=== PATIENT | male | born 1985 | race Caucasian/White ===

== ENCOUNTER 2016-08-08 13:37 | Emergency (ER) | payer SELFPAY ==
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
[2016-08-08] MEDS ORDERED: CEFTRIAXONE INJ 250 MG VIAL IM ONE (14:28)
[2016-08-08] MEDS ORDERED: LIDOCAINE 1% INJ-PF (10 MG/ML) 30 ML SDV INFIL ONE (14:28)
--- NOTE | 2016-08-08 14:34 | ER Document Report ---
ED Skin Rash/Insect Bite/Abscs - General Chief Complaint: Abscess Stated Complaint: FACIAL SORE Time seen by provider: 14:29 TRAVEL OUTSIDE OF THE [place] IN LAST 30 DAYS: No - HPI Patient complains to provider of: Tender/swollen area - pt has a red, swollen area on R cheek for the past 2-3 days. Has had some drainage from it yesterday. Denies fever. - Related Data Allergies/Adverse Reactions: No Known Allergies Allergy (Verified 08/08/16 13:48) Past Medical History - Social History Smoking Status: Current Every Day Smoker Cigarette use (# per day): Yes Chew tobacco use (# tins/day): No Smoking Education Provided: Yes Frequency of alcohol use: None Drug Abuse: None Family History: Reviewed & Not Pertinent Patient has suicidal ideation: No Patient has homicidal ideation: No Renal/ Medical History: Denies: Hx Peritoneal Dialysis Review of Systems - Review of Systems Constitutional: No symptoms reported EENT: No symptoms reported Cardiovascular: No symptoms reported Respiratory: No symptoms reported Skin: See HPI, Other - abscess -: Yes All other systems reviewed and negative Physical Exam - Vital signs Vitals: Temp Pulse Resp BP Pulse Ox 98.1 F 94 20 135/94 H 98 08/08/16 13:45 08/08/16 13:45 08/08/16 13:45 08/08/16 13:45 08/08/16 13:45 - General General appearance: Appears well In distress: None - HEENT Mouth/Lips: Normal Pharynx: Normal Neck: Normal - Respiratory Respiratory status: No respiratory distress Breath sounds: Normal - Cardiovascular Rhythm: Regular Heart sounds: Normal auscultation - Skin Skin irregularity: other - there is a 1 by 1 cm tender, swollen area on pt's R cheek with a central excoriated area and some minimal surrounding erythema. There is no fluctuence. Course - Re-evaluation Re-evalutation: 08/08/16 14:32 I have explained to pt. that since already had some drainage from this area, it is reasonable to try conservative measures today including Abx and warm compresses. He is agreeable to this. I have explained that if this is not successful, he would need to return for I and D of the area. - Vital Signs Vital signs: Temp Pulse Resp BP Pulse Ox 98.1 F 94 20 135/94 H 98 08/08/16 13:45 08/08/16 13:45 08/08/16 13:45 08/08/16 13:45 08/08/16 13:45 Discharge - Discharge Clinical Impression: Abscess Condition: Stable Disposition: HOME, SELF-CARE Instructions: Abscess ([facility]), Oral Narcotic Medication ([facility]), Trimethoprim- Sulfa ([facility]) Additional Instructions: rest, take meds as prescribed, return if worse Prescriptions: Oxycodone HCl/Acetaminophen [Percocet 5-325 mg Tablet] 1 tab PO ASDIR PRN #15 tab PRN Reason: Sulfamethoxazole/Trimethoprim [Bactrim Ds Tablet] 1 each PO BID #10 tablet
[2016-08-08] MEDS ORDERED: IBUPROFEN 800 MG TABLET PO ONE (15:00)
[2016-08-08 15:11] VITALS: BP 129/87
== END 2016-08-08 15:10 | disposition home or self-care (01) ==
LOC: ER 13:37
DX: L02.01 Cutaneous abscess of face (principal); F17.210 Nicotine dependence, cigarettes, uncomplicated
CPT/HCPCS: 99282; 96372; J3490; J0696

== ENCOUNTER 2016-09-04 08:05 | Emergency (ER) | payer SELFPAY ==
[2016-09-04] MEDS ORDERED: IBUPROFEN 800 MG TABLET PO ONE (09:12)
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
[2016-09-04 09:35] LABS: ABSOLUTE LYMPHOCYTES (AUTO) 0.9 10^3/uL (0.5-4.7); ABSOLUTE NEUT (AUTO) 5.5 10^3/uL (1.7-8.2); BASOPHILS % (AUTO) 0.1 % (0-2); EOSINOPHILS % (AUTO) 0.3 % (0-6); HEMATOCRIT 38.9 % (37.9-51.0); HEMOGLOBIN 13.4 g/dL (13.5-17.0); HGB HCT DIFFERENCE 1.3; LYMPHOCYTES % (AUTO) 12.4 % (13-45); MEAN CORPUSCULAR HEMOGLOBIN 28.8 pg (27.0-33.4); MEAN CORPUSCULAR HGB CONC 34.4 g/dL (32.0-36.0); MEAN CORPUSCULAR VOLUME 84 fl (80-97); MONOCYTES % (AUTO) 13.3 % (3-13); RED BLOOD COUNT 4.64 10^6/uL (4.35-5.55); RED CELL DISTRIBUTION WIDTH 13.4 % (11.5-14.0); SEGMENTED NEUTROPHILS % (AUTO) 73.9 % (42-78); WHITE BLOOD COUNT 7.4 10^3/uL (4.0-10.5)
[2016-09-04 09:54] LABS: ALANINE AMINOTRANSFERASE 77 U/L (21-72); ALBUMIN 4.8 g/dL (3.5-5.0); ALKALINE PHOSPHATASE 55 U/L (38-126); ANION GAP 12 (5-19); ASPARTATE AMINO TRANSFERASE 92 U/L (17-59); BILIRUBIN,TOTAL 0.7 mg/dL (0.2-1.3); BLOOD UREA NITROGEN 19 mg/dL (7-20); CALCIUM 9.8 mg/dL (8.4-10.2); CARBON DIOXIDE 26 mmol/L (22-30); CHLORIDE 103 mmol/L (98-107); CREATININE RESULT 1.55 mg/dL (0.52-1.25); GLUCOSE 101 mg/dL (75-110); POTASSIUM 3.8 mmol/L (3.6-5.0); SODIUM 140.6 mmol/L (137-145); TOTAL PROTEIN 7.3 g/dL (6.3-8.2)
[2016-09-04 11:12] LABS: APPEARANCE,URINE SLIGHTLY-CLOUDY; BILIRUBIN,URINE NEGATIVE (NEGATIVE); GLUCOSE, URINE NEGATIVE (NEGATIVE); KETONES,URINE NEGATIVE (NEGATIVE); LEUKOCYTE ESTERASE,URINE NEGATIVE (NEGATIVE); NITRITE,URINE NEGATIVE (NEGATIVE); PROTEIN,URINE 30 mg/dL (NEGATIVE); URINE SPECIFIC GRAVITY 1.004; UROBILINOGEN,URINE NEGATIVE mg/dL (<2.0)
[2016-09-04] MEDS ORDERED: OXYCODONE-ACETAMINOPHEN 5-325 MG TABLET PO ONE (11:59)
[2016-09-04 12:41] VITALS: BP 154/96
== END 2016-09-04 12:42 | disposition home or self-care (01) ==
LOC: ER 08:05
DX: S02.2XXA Fracture of nasal bones, initial encounter for closed fracture (principal); S60.229A Contusion of unspecified hand, initial encounter; R11.0 Nausea; R07.81 Pleurodynia; F17.210 Nicotine dependence, cigarettes, uncomplicated; M79.662 Pain in left lower leg; M79.661 Pain in right lower leg; M25.562 Pain in left knee; Y08.02XA Assault by strike by baseball bat, initial encounter; Y92.027 Garden or yard of mobile home as the place of occurrence of the external cause
CPT/HCPCS: 36415; 70450; 70486; 74177; 80053; 81001; 85025; 99284

== ENCOUNTER 2017-01-10 08:24 | Emergency (ER) | payer SELFPAY ==
[2017-01-10] MEDS ORDERED: NORMAL SALINE 1000 ML 1,000 ML IV ONE (09:54)
[2017-01-10] MEDS ORDERED: IBUPROFEN 800 MG TABLET PO ONE (09:54)
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
--- NOTE | 2017-01-10 10:17 | RADIOLOGY REPORT (SQ) ---
EXAM DESCRIPTION: CHEST PA/LAT COMPLETED DATE/TIME: 01/10/2017 10:06 am REASON FOR STUDY: RUQ pain, hx hep c, fever COMPARISON: None. EXAM PARAMETERS: NUMBER OF VIEWS: two views TECHNIQUE: Digital Frontal and Lateral radiographic views of the chest acquired. RADIATION DOSE: NA LIMITATIONS: none FINDINGS: LUNGS AND PLEURA: No opacities, masses or pneumothorax. No pleural effusion. MEDIASTINUM AND HILAR STRUCTURES: No masses or contour abnormalities. HEART AND VASCULAR STRUCTURES: Heart normal size. No evidence for failure. BONES: No acute findings. HARDWARE: None in the chest. OTHER: No other significant finding. IMPRESSION: NO SIGNIFICANT RADIOGRAPHIC FINDING IN THE CHEST. TECHNICAL DOCUMENTATION: JOB ID: [id number] [email or web address]- All Rights Reserved
[2017-01-10 10:55] LABS: HEMATOCRIT 40.5 % (37.9-51.0); HEMOGLOBIN 13.8 g/dL (13.5-17.0); HGB HCT DIFFERENCE 0.9; MEAN CORPUSCULAR HEMOGLOBIN 28.7 pg (27.0-33.4); MEAN CORPUSCULAR HGB CONC 34.1 g/dL (32.0-36.0); MEAN CORPUSCULAR VOLUME 84 fl (80-97); RED BLOOD COUNT 4.81 10^6/uL (4.35-5.55); RED CELL DISTRIBUTION WIDTH 12.9 % (11.5-14.0); WHITE BLOOD COUNT 3.4 10^3/uL (4.0-10.5)
[2017-01-10 11:02] LABS: APPEARANCE,URINE CLEAR; BILIRUBIN,URINE NEGATIVE (NEGATIVE); GLUCOSE, URINE NEGATIVE (NEGATIVE); KETONES,URINE NEGATIVE (NEGATIVE); LEUKOCYTE ESTERASE,URINE NEGATIVE (NEGATIVE); NITRITE,URINE NEGATIVE (NEGATIVE); PROTEIN,URINE NEGATIVE (NEGATIVE); URINE SPECIFIC GRAVITY 1.005; UROBILINOGEN,URINE NEGATIVE mg/dL (<2.0)
[2017-01-10 11:15] LABS: ALANINE AMINOTRANSFERASE 72 U/L (21-72); ALBUMIN 3.6 g/dL (3.5-5.0); ALKALINE PHOSPHATASE 55 U/L (38-126); ANION GAP 10 (5-19); ASPARTATE AMINO TRANSFERASE 75 U/L (17-59); BILIRUBIN,DIRECT 0.3 mg/dL (0.0-0.4); BILIRUBIN,TOTAL 0.5 mg/dL (0.2-1.3); BLOOD UREA NITROGEN 13 mg/dL (7-20); CALCIUM 8.4 mg/dL (8.4-10.2); CARBON DIOXIDE 23 mmol/L (22-30); CHLORIDE 103 mmol/L (98-107); CREATININE RESULT 1.08 mg/dL (0.52-1.25); GLUCOSE 95 mg/dL (75-110); LIPASE 157.8 U/L (23-300); POTASSIUM 3.9 mmol/L (3.6-5.0); TOTAL PROTEIN 6.5 g/dL (6.3-8.2)
[2017-01-10 11:24] LABS: URINE BARBITURATES SCREEN NEGATIVE; URINE METHADONE SCREEN NEGATIVE; URINE OPIATES LOW NEGATIVE; URINE PHENCYCLIDINE SCREEN NEGATIVE
[2017-01-10 11:32] LABS: BAND NEUTROPHILS % (MANUAL) 1 % (3-5); BASOPHILS % (MANUAL) 0 % (0-2); EOSINOPHILS % (MANUAL) 0 % (0-6); LYMPHOCYTES % (MANUAL) 25 % (13-45); TOTAL CELLS COUNTED 100
[2017-01-10 11:33] LABS: RBC MORPHOLOGY COMMENT NORMO-CYTIC/CHROMIC
--- NOTE | 2017-01-10 11:46 | RADIOLOGY REPORT (SQ) ---
EXAM DESCRIPTION: U/S ABDOMEN COMPLETE W/O DOP COMPLETED DATE/TIME: 01/10/2017 11:34 am REASON FOR STUDY: RUQ pain, hx hep c, fever COMPARISON: None. TECHNIQUE: Dynamic and static grayscale images acquired of the abdomen and recorded on PACS. Kenyao virgil selected color Doppler and spectral images recorded. LIMITATIONS: None. FINDINGS: PANCREAS: The visualized portions of pancreas are normal in appearance. LIVER: No masses. Echotexture normal. LIVER VASCULATURE: Normal directional flow of the main portal vein and hepatic veins. GALLBLADDER: Contracted. ULTRASOUND-DETECTED ABAD'S SIGN: Negative. INTRAHEPATIC DUCTS AND COMMON DUCT: CBD and intrahepatic ducts normal caliber. No filling defects. INFERIOR VENA CAVA: Incompletely imaged. AORTA: No aneurysm. RIGHT KIDNEY: Normal size. Normal echogenicity. No solid or suspicious masses. No hydronephros is. No calcifications. LEFT KIDNEY: Normal size. Normal echogenicity. No solid or suspicious masses. No hydronephrosi s. No calcifications. SPLEEN: Normal size. No solid masses. PERITONEAL AND PLEURAL SPACES: No ascites or effusions. OTHER: No other significant finding. IMPRESSION: Contracted gallbladder. No acute findings in the abdomen. TECHNICAL DOCUMENTATION: JOB ID: [id number] [employer]- All Rights Reserved
[2017-01-10] MEDS ORDERED: KETOROLAC TROMETHAMINE INJ/PF 30 MG/1 ML SDV IV ONE (14:04)
[2017-01-10] MEDS ORDERED: TRAMADOL HCL 50 MG TABLET PO ONE (14:05)
--- NOTE | 2017-01-10 15:48 | RADIOLOGY REPORT (SQ) ---
EXAM DESCRIPTION: MRI LUMBAR SPINE COMBO COMPLETED DATE/TIME: 01/10/2017 3:38 pm REASON FOR STUDY: fever, low back pain, ex iv drug user COMPARISON: None. TECHNIQUE: Sagittal and Axial imaging includes T1, T1 post gadolinium, T2, STIR and gradient echo se quences. Coronal T2/HASTE imaging. CONTRAST TYPE AND DOSE: 20 mL Multihance. RENAL FUNCTION: GFR > 60. LIMITATIONS: None. FINDINGS: VISUALIZED UPPER ABDOMEN: Limited evaluation. No acute or suspicious findings suggested. SEGMENTATION: No transitional anatomy. The lowest well-developed disc space is labeled L5-S1. ALIGNMENT: Anatomic. VERTEBRAE: Intact. No fractures. BONE MARROW: Normal. No marrow replacement or reactive changes. DISC SIGNAL: Normal. No significant abnormal signal or loss of height. POSTERIOR ELEMENTS: Generally intact. No pars defect evident. HARDWARE: None in the spine. CORD AND CONUS: Normal in size and signal intensity. Conus at the appropriate level. SOFT TISSUES: No aortic aneurysm seen. No bulky retroperitoneal adenopathy or mass. No paraspinal mas s or fluid. L1-L2: No significant spinal stenosis or exit foraminal stenosis. L2-L3: No significant spinal stenosis or exit foraminal stenosis. L3-L4: No significant spinal stenosis or exit foraminal stenosis. L4-L5: No significant spinal stenosis or exit foraminal stenosis. L5-S1: No significant spinal stenosis or exit foraminal stenosis. LOWER THORACIC: Incompletely imaged. No stenosis seen. SACRUM: Visualized upper sacrum intact. ENHANCEMENT: No abnormal enhancement. OTHER: No other significant findings. IMPRESSION: NORMAL MRI LUMBAR SPINE. NO EPIDURAL ABSCESS OR SOFT TISSUE ABSCESS. TECHNICAL DOCUMENTATION: JOB ID: [id number]- All Rights Reserved
[2017-01-10 17:04] VITALS: BP 121/69
== END 2017-01-10 17:29 | disposition home or self-care (01) ==
LOC: ER 08:24
DX: R50.9 Fever, unspecified (principal); R20.0 Anesthesia of skin; R03.0 Elevated blood-pressure reading, without diagnosis of hypertension; M54.5 Low back pain; F17.200 Nicotine dependence, unspecified, uncomplicated
CPT/HCPCS: 99284; 36415; 87040; 87086; 83690; 85025; 80053; 81001; 80307; 83605; 72158; 71020; 76700; A9577; J7030

== ENCOUNTER 2017-11-08 11:46 | Emergency (ER) | payer SELFPAY ==
[2017-11-08] MEDS ORDERED: NAPROXEN 250 MG TABLET PO ONE (12:28)
--- NOTE | 2017-11-08 12:29 | ER Document Report ---
ED Respiratory Problem - General Chief Complaint: Shortness Of Breath Stated Complaint: SHORTNESS OF BREATH Time Seen by Provider: 11/08/17 12:20 Notes: The patient is a 32-year-old male, past medical history current smoker, presents with a few hours of right lateral chest wall pain that is worse when he moves and when he takes deep breaths. Patient has not had this before. He has a history of right-sided broken ribs, but this feels different. Patient denies hemoptysis, syncope, leg swelling, recent travel, nausea, vomiting, fevers or cough. TRAVEL OUTSIDE OF THE [place] IN LAST 30 DAYS: No - Related Data Allergies/Adverse Reactions: No Known Allergies Allergy (Verified 01/10/17 08:28) Past Medical History - General Information source: Patient - Social History Smoking Status: Current Every Day Smoker Chew tobacco use (# tins/day): No Frequency of alcohol use: None Drug Abuse: Heroin Family History: Reviewed & Not Pertinent Patient has suicidal ideation: No Patient has homicidal ideation: No Pulmonary Medical History: Reports: Hx Asthma - exercise induced Renal/ Medical History: Denies: Hx Peritoneal Dialysis GI Medical History: Reports: Hx Hepatitis - C Infectious Medical History: Reports: Hx Hepatitis - C Review of Systems - Review of Systems Notes: REVIEW OF SYSTEMS: CONSTITUTIONAL: -fevers, -chills EENT: -eye pain, -difficulty swallowing, -nasal congestion CARDIOVASCULAR: +right-sided chest pain, -syncope. RESPIRATORY: -cough, +SOB GASTROINTESTINAL: -abdominal pain, -nausea, -vomiting, -diarrhea GENITOURINARY: -dysuria, -hematuria MUSCULOSKELETAL: -back pain, -neck pain SKIN: -rash or skin lesions. HEMATOLOGIC: -easy bruising or bleeding. LYMPHATIC: -swollen, enlarged glands. NEUROLOGICAL: -altered mental status or loss of consciousness, -headache, - neurologic symptoms PSYCHIATRIC: -anxiety, -depression. ALL OTHER SYSTEMS REVIEWED AND NEGATIVE. Physical Exam - Vital signs Vitals: Temp Pulse Resp BP Pulse Ox 98.0 F 77 16 141/84 H 98 11/08/17 11:57 11/08/17 11:57 11/08/17 11:57 11/08/17 11:57 11/08/17 11:57 - Notes Notes: PHYSICAL EXAMINATION: GENERAL: Well-appearing, well-nourished and in no acute distress. HEAD: Atraumatic, normocephalic. EYES: Pupils equal round and reactive to light, extraocular movements intact, sclera anicteric, conjunctiva are normal. ENT: nares patent, oropharynx clear without exudates. Moist mucous membranes. NECK: Normal range of motion, supple without lymphadenopathy LUNGS: Breath sounds clear to auscultation bilaterally and equal. No wheezes rales or rhonchi. HEART: Regular rate and rhythm without murmurs ABDOMEN: Soft, nontender, normoactive bowel sounds. No guarding, no rebound. No masses appreciated. CHEST WALL: Tenderness over right lateral chest wall. EXTREMITIES: Normal range of motion, no pitting or edema. No cyanosis. NEUROLOGICAL: Cranial nerves grossly intact. Normal speech, normal gait. Normal sensory and motor exams. PSYCH: Normal mood, normal affect. SKIN: Warm, Dry, normal turgor, no rashes or lesions noted. Course - Re-evaluation Re-evalutation: Pt appears well. His EKG does not show any ischemic changes and CXR does not show any acute findings. Patient is PERC negative. Symptoms seem consistent with pleurisy. Spoke to patient about smoking cessation and adding anti- inflammatories to help with his pain. Given very strict return precautions and he understands. - Vital Signs Vital signs: Temp Pulse Resp BP Pulse Ox 98.0 F 77 16 141/84 H 98 11/08/17 11:57 11/08/17 11:57 11/08/17 11:57 11/08/17 11:57 11/08/17 11:57 - Diagnostic Test Radiology reviewed: Image reviewed, Reports reviewed Radiology results interpreted by me: CXR: NAD - EKG Interpretation by Me EKG shows normal: Sinus rhythm, [place], Intervals, QRS Complexes, ST-T Waves Rate: Normal Discharge - Discharge Clinical Impression: Pleurisy, Chest pain, Shortness of breath Condition: Stable Disposition: HOME, SELF-CARE Additional Instructions: SHORTNESS OF BREATH OR DYSPNEA: You were evaluated for shortness of breath, or dyspnea. Dyspnea has many causes, and some are more serious than others. Sometimes it's impossible to diagnose the cause of dyspnea with the tests that are available on an emergency basis. Based on our evaluation today, you do not need hospitalization now. We found no evidence of pneumonia, collapsed lung, blood clots in the lung, tumors , or heart failure. Causes of non-specific dyspnea can include asthma or bronchospasm, hyperventilation, emotional distress, heart disease, emphysema, fibrosis of the lung, and stiffness of the chest wall. In healthy individuals with a single episode, it's sometimes reasonable to do nothing but wait to see if the problem occurs again. Additional tests used to evaluate dyspnea can include cardiac stress testing, echocardiography, pulmonary function testing, CAT scan of the chest, bronchoscopy or pulmonary biopsy. Return if shortness of breath persists or worsens, or if you develop chest pain, fever, cough, confusion, or fainting. NORMAL EXAM AND WORKUP: At this time, your examination and workup show no significant abnormality. No significant abnormal physical findings were noted. All laboratory, EKG, and imaging (x-ray, CT scans, ultrasound) studies that were ordered show no significant abnormality. Although your examination and all studies that were ordered showed no significant abnormal finding, there are no examinations and no studies that are 100% accurate. There is always the possibility that some abnormality could exist and not be detected with physical examination or within the limits and capabilities of laboratory and other studies. You should return or follow up as you were instructed on your visit today for further evaluation if your symptoms do not resolve. FOLLOW-UP CARE: If you have been referred to a physician for follow-up care, call the physician s office for an appointment as you were instructed or within the next two days. If you experience worsening or a significant change in your symptoms, notify the physician immediately or return to the Emergency Department at any time for re-evaluation. CHEST PAIN OF UNCLEAR CAUSE: The exact cause of your chest pain isn't clear. Fortunately, there is no evidence of a dangerous medical condition. Further testing may be required to find the source of the pain. Most often, we find that this pain is coming from the chest wall -- the muscles or rib joints in the chest. But chest pain can come from the lung and lung lining, the esophagus, the heart valves or heart lining, and even the stomach or gallbladder. Rest. Eat lightly until the pain is gone. We may prescribe medicine for pain and inflammation. You should call the physician immediately if the pain radiates to the shoulder, jaw or arms; if you start to run a fever or develop a cough; or if you develop shortness of breath, or other new or alarming symptoms. NORMAL EXAM AND WORKUP: At this time, your examination and workup show no significant abnormality. No significant abnormal physical findings were noted. All laboratory, EKG, and imaging (x-ray, CT scans, ultrasound) studies that were ordered show no significant abnormality. Although your examination and all studies that were ordered showed no significant abnormal finding, there are no examinations and no studies that are 100% accurate. There is always the possibility that some abnormality could exist and not be detected with physical examination or within the limits and capabilities of laboratory and other studies. You should return or follow up as you were instructed on your visit today for further evaluation if your symptoms do not resolve. CHEST WALL PAIN: Your chest pain may be coming from the chest wall. This is often caused by straining the muscles or joints in the chest during physical activity, direct trauma, coughing, or vigorous vomiting. Persons with arthritis are especially prone to this type of pain, due to inflammation of the cartilage joints near the breast bone. Occasionally, no cause can be found. Rest from strenuous physical activity. This kind of chest pain is usually made worse by movement of the chest. Depending on the symptoms, we may prescribe medicine for pain, muscle relaxation, and antiinflammatory effects. If the pain is new, and seems to be due to muscle strain, cold packs can help. Otherwise, apply gentle warmth to the painful area for 15 minutes every hour or two. You should call contact the doctor immediately if things change. Further evaluation is needed if you develop a fever or cough, if the nature of the pain changes, or if you become short of breath. FOLLOW-UP CARE: If you have been referred to a physician for follow-up care, call the physician s office for an appointment as you were instructed or within the next two days. If you experience worsening or a significant change in your symptoms, notify the physician immediately or return to the Emergency Department at any time for re-evaluation. Forms: Smoking Cessation Education, Elevated Blood Pressure Referrals: GANGA JENKINS MD [ACTIVE STAFF] - Follow up as needed
--- NOTE | 2017-11-08 12:47 | RADIOLOGY REPORT (SQ) ---
EXAM DESCRIPTION: CHEST 2 VIEWS COMPLETED DATE/TIME: 11/08/2017 12:40 pm REASON FOR STUDY: right-sided chest pain COMPARISON: 01/10/2017. EXAM PARAMETERS: NUMBER OF VIEWS: two views TECHNIQUE: Digital Frontal and Lateral radiographic views of the chest acquired. RADIATION DOSE: NA LIMITATIONS: none FINDINGS: LUNGS AND PLEURA: No opacities, masses or pneumothorax. No pleural effusion. MEDIASTINUM AND HILAR STRUCTURES: No masses or contour abnormalities. HEART AND VASCULAR STRUCTURES: Heart normal size. No evidence for failure. BONES: No acute findings. HARDWARE: None in the chest. OTHER: No other significant finding. IMPRESSION: NO ACUTE RADIOGRAPHIC FINDING IN THE CHEST. TECHNICAL DOCUMENTATION: JOB ID: [id number] [employer]- All Rights Reserved Reading location - IP/workstation name: [email or web address]
[2017-11-08 13:41] VITALS: BP 126/80
--- NOTE | 2017-11-08 21:40 | EKG REPORT ---
SEVERITY:- NORMAL ECG - SINUS RHYTHM : Confirmed by: Nieves Thompson 08-Nov-2017 21:39:40
== END 2017-11-08 13:39 | disposition home or self-care (01) ==
LOC: ER 11:46
DX: R09.1 Pleurisy (principal); R07.89 Other chest pain; R06.02 Shortness of breath; F17.200 Nicotine dependence, unspecified, uncomplicated; J45.909 Unspecified asthma, uncomplicated
CPT/HCPCS: 71046; 93005; 93010; 99284

== ENCOUNTER 2017-11-10 16:58 | Emergency (ER) | payer SELFPAY ==
[2017-11-10] MEDS ORDERED: ALBUTEROL SULFATE 0.083% NEB 2.5 MG/3 ML AMPUL NEB ONE (19:36)
[2017-11-10] MEDS ORDERED: IPRATROPIUM BROMIDE 0.02% NEB 0.5 MG/2.5 ML AMPUL NEB ONE (19:36)
--- NOTE | 2017-11-10 20:14 | RADIOLOGY REPORT (SQ) ---
EXAM DESCRIPTION: CHEST 2 VIEWS COMPLETED DATE/TIME: 11/10/2017 8:05 pm REASON FOR STUDY: chest pain COMPARISON: 11/08/2017. EXAM PARAMETERS: NUMBER OF VIEWS: two views TECHNIQUE: Digital Frontal and Lateral radiographic views of the chest acquired. RADIATION DOSE: NA LIMITATIONS: none FINDINGS: LUNGS AND PLEURA: Low lung volumes. No opacities, masses or pneumothorax. No pleural effu katja. MEDIASTINUM AND HILAR STRUCTURES: No masses or contour abnormalities. HEART AND VASCULAR STRUCTURES: Heart normal size. No evidence for failure. BONES: No acute findings. HARDWARE: None in the chest. OTHER: No other significant finding. IMPRESSION: NO ACUTE RADIOGRAPHIC FINDING IN THE CHEST. TECHNICAL DOCUMENTATION: JOB ID: [id number] [employer]- All Rights Reserved Reading location - IP/workstation name: [email or web address]
[2017-11-10] MEDS ORDERED: ALBUTEROL SULFATE HFA (90 MCG/PUFF) 8 GM MDI (1 MDI/ER DISP) IH PRN (20:36)
[2017-11-10] MEDS ORDERED: PREDNISONE 20 MG TABLET PO ONE (20:40)
--- NOTE | 2017-11-10 20:41 | ER Document Report ---
ED General - General Chief Complaint: Shortness Of Breath Stated Complaint: SHORTNESS OF BREATH Time Seen by Provider: 11/10/17 19:25 TRAVEL OUTSIDE OF THE [place] IN LAST 30 DAYS: No - Related Data Allergies/Adverse Reactions: No Known Allergies Allergy (Verified 01/10/17 08:28) Past Medical History - Social History Smoking Status: Current Every Day Smoker Chew tobacco use (# tins/day): No Frequency of alcohol use: None Family History: Reviewed & Not Pertinent Patient has suicidal ideation: No Patient has homicidal ideation: No Pulmonary Medical History: Reports: Hx Asthma - exercise induced Renal/ Medical History: Denies: Hx Peritoneal Dialysis GI Medical History: Reports: Hx Hepatitis - C Infectious Medical History: Reports: Hx Hepatitis - C Physical Exam - Vital signs Vitals: Temp Pulse Resp BP Pulse Ox 98.3 F 92 20 144/75 H 97 11/10/17 17:08 11/10/17 17:08 11/10/17 17:08 11/10/17 17:08 11/10/17 17:08 Course - Re-evaluation Re-evalutation: 11/10/17 20:36 Patient's x-ray shows mild peribronchial cuffing but otherwise no concerning findings of infiltrates or consolidations. Patient's troponin negative. Pending EKG. Patient declined nebulizer treatment at this time. He appears in no acute distress with normal vitals. Will be discharged with 5 day prednisone Dosepak and was instructed to use albuterol puffer 2 puffs every 4 hours while awake for the next 2 days and 2 puffs every 4 hours thereafter. Smoking cessation also discussed 11/10/17 20:39 HEART Score 1, No concerning findings on EKG, will d/c at this time. - Vital Signs Vital signs: Temp Pulse Resp BP Pulse Ox 98.3 F 92 20 144/75 H 97 11/10/17 17:08 11/10/17 17:08 11/10/17 17:08 11/10/17 17:08 11/10/17 17:08 - Diagnostic Test Radiology reviewed: Reports reviewed - Mild peribrochial cuffing Discharge - Discharge Clinical Impression: Pleurisy Condition: Good Disposition: HOME, SELF-CARE Instructions: Pleurisy ([facility]) Additional Instructions: Please use albuterol puffer 2 puffs every 4 hours for the next 2 days while awake and then 2 puffs every 4 hours as needed thereafter Prescriptions: Prednisone [Deltasone 20 mg Tablet] 2 tab PO DAILY 5 Days #10 tablet
--- NOTE | 2017-11-10 20:49 | ER Document Report ---
ED General - General Mode of Arrival: Ambulatory Information source: Patient TRAVEL OUTSIDE OF THE [place] IN LAST 30 DAYS: No - General Chief Complaint: Shortness Of Breath Stated Complaint: SHORTNESS OF BREATH Time Seen by Provider: 11/10/17 19:25 Notes: Patient is a 32-year-old male who presents to the emergency department today with complaints of chest wall pain. Patient was diagnosed with pleurisy 2 days ago and was told to take anti-inflammatories (ibuprofen). Patient states he has an albuterol inhaler at home but it is . He has not been using it because he "does not feel like it helps". Patient is here for pain relief. ( EMMANUEL MIGUEL) - Related Data Allergies/Adverse Reactions: No Known Allergies Allergy (Verified 01/10/17 08:28) Past Medical History - General Information source: Patient - Social History Smoking Status: Current Every Day Smoker Cigarette use (# per day): Yes Chew tobacco use (# tins/day): No Frequency of alcohol use: None Lives with: Family Family History: Reviewed & Not Pertinent Patient has suicidal ideation: No Patient has homicidal ideation: No Pulmonary Medical History: Reports: Hx Asthma - exercise induced Renal/ Medical History: Denies: Hx Peritoneal Dialysis GI Medical History: Reports: Hx Hepatitis - C Infectious Medical History: Reports: Hx Hepatitis - C Surgical Hx: Negative Review of Systems - Review of Systems Constitutional: No symptoms reported EENT: No symptoms reported Cardiovascular: No symptoms reported Respiratory: Hurts to breathe Gastrointestinal: No symptoms reported Genitourinary: No symptoms reported Male Genitourinary: No symptoms reported Musculoskeletal: No symptoms reported Skin: No symptoms reported Hematologic/Lymphatic: No symptoms reported Neurological/Psychological: No symptoms reported -: Yes All other systems reviewed and negative Physical Exam - Vital signs Vitals: Temp Pulse Resp BP Pulse Ox 98.3 F 92 20 144/75 H 97 11/10/17 17:08 11/10/17 17:08 11/10/17 17:08 11/10/17 17:08 11/10/17 17:08 - Notes Notes: Physical Exam: General: Alert, appears well. HEENT: Normocephalic. Atraumatic. PERRL. Extraocular movements intact. Oropharynx clear. Neck: Supple. Non-tender. Respiratory: No respiratory distress. Clear and equal breath sounds bilaterally. Cardiovascular: Regular rate and rhythm. Abdominal: Normal Inspection. Non-tender. No distension. Normal Bowel Sounds. Back: Non-tender. No deformity or step off. Extremities: Moves all four extremities. Upper extremities: Normal inspection. Normal ROM. Lower extremities: Normal inspection. No edema. Normal ROM. Neurological: Normal cognition. AAOx4. Normal speech. Psychological: Normal affect. Normal Mood. Skin: Warm. Dry. Normal color. (EMMANUEL MIGUEL) Course - EKG Interpretation by Me EKG shows normal: Sinus rhythm Rate: Normal - 93 Rhythm: NSR When compared to previous EKG there are: No significant change - Vital Signs Vital signs: Temp Pulse Resp BP Pulse Ox 100.9 F H 99 20 154/100 H 98 11/10/17 20:58 11/10/17 20:58 11/10/17 20:58 11/10/17 20:58 11/10/17 20:58 Discharge - Discharge Clinical Impression: Pleurisy Condition: Good Disposition: HOME, SELF-CARE Instructions: Pleurisy ([facility]) Additional Instructions: Please use albuterol puffer 2 puffs every 4 hours for the next 2 days while awake and then 2 puffs every 4 hours as needed thereafter Prescriptions: Prednisone [Deltasone 20 mg Tablet] 2 tab PO DAILY 5 Days #10 tablet Forms: Return to Work Scribe Attestation: 11/13/17 10:58 I personally performed the services described in the documentation, reviewed and edited the documentation which was dictated to the scribe in my presence, and it accurately records my words and actions. (MOO VELASCO) Scribe Documentation - Scribe Written by Nara:: Nara Townsend, 11/11/2017 0917 acting as scribe for :: Curtis
[2017-11-10 21:00] VITALS: BP 154/100
--- NOTE | 2017-11-10 23:17 | EKG REPORT ---
SEVERITY:- NORMAL ECG - SINUS RHYTHM : Confirmed by: Nieves Thompson 10-Nov-2017 23:17:02
== END 2017-11-10 21:02 | disposition home or self-care (01) ==
LOC: ER 16:58
DX: R09.1 Pleurisy (principal); R06.02 Shortness of breath; R07.89 Other chest pain; F17.210 Nicotine dependence, cigarettes, uncomplicated; Z86.19 Personal history of other infectious and parasitic diseases
CPT/HCPCS: 93005; 99284; 36415; 84484; 71046; 93010; J7512; J3490

== ENCOUNTER 2018-01-22 18:51 | Emergency (ER) | payer SELFPAY ==
[2018-01-22 19:04] VITALS: BP 137/90
[2018-01-22] MEDS ORDERED: DIAZEPAM INJ 10 MG/2 ML DISP.SYRIN IM ONE (19:18)
--- NOTE | 2018-01-22 19:24 | ER Document Report ---
ED General - General Chief Complaint: Leg Pain Stated Complaint: RIGHT LEG PAIN Time Seen by Provider: 01/22/18 19:06 Notes: Patient is a 32 year old male that comes to the ED by EMS for chief complaint of lower back pain radiating down the back of his right leg. He states he is Star been evaluated for this twice, had x-rays including back and hip, states that last Tuesday night he started limping and it is only gotten worse with regular shooting pains down the back of his leg and a tingling sensation intermittently. He denies numbness, inability to urinate, bowel incontinence, fever, or history of IV drug abuse. He denies history of the same. He denies any orthopedic surgeries. He cannot recall any specific accident. 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 TRAVEL OUTSIDE OF THE [place] IN LAST 30 DAYS: No - Related Data Allergies/Adverse Reactions: No Known Allergies Allergy (Verified 01/10/17 08:28) Past Medical History - General Information source: Patient - Social History Smoking Status: Never Smoker Drug Abuse: None Lives with: Family Family History: Reviewed & Not Pertinent Patient has suicidal ideation: No Patient has homicidal ideation: No Pulmonary Medical History: Reports: Hx Asthma - exercise induced Renal/ Medical History: Denies: Hx Peritoneal Dialysis GI Medical History: Reports: Hx Hepatitis - C Infectious Medical History: Reports: Hx Hepatitis - C Review of Systems - Review of Systems Constitutional: No symptoms reported EENT: No symptoms reported Cardiovascular: No symptoms reported Respiratory: No symptoms reported Gastrointestinal: No symptoms reported Genitourinary: No symptoms reported Male Genitourinary: No symptoms reported Musculoskeletal: See HPI Skin: No symptoms reported Hematologic/Lymphatic: No symptoms reported Neurological/Psychological: No symptoms reported Physical Exam - Vital signs Vitals: Pulse Resp BP Pulse Ox 99 16 137/90 H 97 01/22/18 19:03 01/22/18 19:03 01/22/18 19:03 01/22/18 19:03 - Notes Notes: GENERAL: Patient vocalizing and shifting in the bed, but does not appear to be in distress. HEAD: Normocephalic, atraumatic. EYES: Pupils equal, round, and reactive to light. Extraocular movements intact. ENT: Oral mucosa moist, tongue midline. NECK: Full range of motion. Supple. Trachea midline. LUNGS: Clear to auscultation bilaterally, no wheezes, rales, or rhonchi. No respiratory distress. HEART: Regular rate and rhythm. No murmur ABDOMEN: Soft, non-tender. Non-distended. Bowel sounds present in all 4 quadrants. EXTREMITIES: Moves all 4 extremities spontaneously. No edema, normal radial and dorsalis pedis pulses bilaterally. No cyanosis. BACK: no midline tenderness, tender over the right mid to lower lumbar area extending down towards the gluteal area. No saddle anesthesia. Positive straight leg raise on the right. Normal distal neurovascular exam. Only other abnormality is what appears to be a lipoma on the left upper back. NEUROLOGICAL: Alert and oriented x3. Normal speech. [cranial nerves II through XII grossly intact]. PSYCH: Normal affect, normal mood. SKIN: Warm, dry, normal turgor. No rashes or lesions noted. Course - Re-evaluation Re-evalutation: Patient with tenderness along the right paraspinal muscles at the lumbar area and buttocks, positive straight leg raise, no tenderness at the hip or femur areas, no numbness, normal distal neurovascular exam. No fever, no history of IV drug abuse reported, no surgeries, physical exam and history do not suggest septic joint or spinal cord compression. Suspect patient has sciatica. Discussed this with patient, decision was made to give him a dose of diazepam here, provided him with this at home as a muscle relaxer, he will take ibuprofen , discussed expectations, follow-up, and return precautions. Family came, reported that he cannot walk, requested additional treatment, I went evaluate the patient again, discussed with patient and family, patient states that he just needs help getting into the car, he has a walker at home. - Vital Signs Vital signs: Temp Pulse Resp BP Pulse Ox 99 16 137/90 H 97 01/22/18 19:03 01/22/18 19:03 01/22/18 19:03 01/22/18 19:03 Discharge - Discharge Clinical Impression: Lower back pain Qualifiers: Chronicity: acute Back pain laterality: right Sciatica presence: with sciatica Sciatica laterality: sciatica of right side Qualified Code(s): M54.41 - Lumbago with sciatica, right side Condition: Stable Disposition: HOME, SELF-CARE Additional Instructions: Your evaluation is very suggestive of sciatic nerve pain (sciatica). This does not appear to be a hip joint problem. Take the medication prescribed, apply heat to the area, drink plenty fluids, and rest. See additional details below. Also take over the counter anti- inflammatory (i.e. ibuprofen 600 mg every 6 hours, with food). Follow-up with primary care and orthopedic referrals. Return if you worsen including fever, developing or spreading redness, numbness , loss of bowel or bladder control, or any other concerning or worsening symptoms. Sciatica Your symptoms suggest "sciatica." The pain of sciatica typically radiates down the leg. Numbness in the foot or calf may also occur. Sciatica is caused by irritation of the sciatic nerve or its branches. The irritation can be due to a herniated disk in the spine, swelling and inflammation in the muscles surrounding the sciatic nerve, or direct injury of the nerve itself. Most cases of sciatica will resolve with medical treatment. Bed rest is usually recommended initially. Surgery is only necessary when the condition will not improve with rest and antiinflammatory medication. Muscle relaxers are often given if muscle soreness is present. A CAT scan of the back may be performed if a herniated disk is suspected. Re-examination is necessary if you develop increasing numbness, localized weakness in the foot or ankle, or if the pain does not respond to rest. Prescriptions: Diazepam [Valium 5 mg Tablet] 1 - 2 tab PO TID PRN #15 tablet PRN Reason: Forms: Return to Work Referrals: VELMA HAIR MD [COMMUNITY BASED STAFF] - Follow up as needed NATHALY MORALES MD [ACTIVE STAFF] - Follow up as needed
[2018-01-22] MEDS ORDERED: HYDROCODONE/ACETAMINOPHEN 5-325 MG (6 TAB/ER DISP) PO PRN (19:56)
== END 2018-01-22 20:31 | disposition home or self-care (01) ==
LOC: ER 18:51
DX: M54.41 Lumbago with sciatica, right side (principal); M79.604 Pain in right leg; J45.909 Unspecified asthma, uncomplicated
CPT/HCPCS: 99283; 96374; J3360

== ENCOUNTER 2018-01-24 10:23 | Inpatient (IN) | payer OTHER ==
[2018-01-24] MEDS ORDERED: HYDROMORPHONE HCL INJ/PF 2 MG/ML AMPULE IV ONE ×5 (10:48→16:28)
--- NOTE | 2018-01-24 10:52 | ER Document Report ---
ED Medical Screen (RME) - General Chief Complaint: Back Pain Stated Complaint: BACK PAIN Time Seen by Provider: 01/24/18 10:40 Mode of Arrival: Wheelchair Information source: Patient Notes: 32-year-old male presents with complaints of low back pain. Patient notes he has been seen now 4 times this week for his back pain notes fever that started yesterday. Denies any nausea or vomiting Patient was recently seen and placed on prednisone notes fever 102.5 I have greeted and performed a rapid initial assessment of this patient. A comprehensive ED assessment and evaluation of the patient, analysis of test results and completion of the medical decision making process will be conducted by additional ED providers. PHYSICAL EXAMINATION: GENERAL: Well-appearing, well-nourished and in no acute distress. HEAD: Atraumatic, normocephalic. EYES: Pupils equal round extraocular movements intact, conjunctiva are normal. ENT: Nares patent NECK: Normal range of motion LUNGS: No respiratory distress Musculoskeletal: pain with rom NEUROLOGICAL: Normal speec PSYCH: Normal mood, normal affect. SKIN: Blistering noted of the low back secondary to heating pad TRAVEL OUTSIDE OF THE [place] IN LAST 30 DAYS: No - Related Data Allergies/Adverse Reactions: No Known Allergies Allergy (Verified 01/24/18 10:24) Past Medical History Pulmonary Medical History: Reports: Hx Asthma - exercise induced Renal/ Medical History: Denies: Hx Peritoneal Dialysis GI Medical History: Reports: Hx Hepatitis - C Infectious Medical History: Reports: Hx Hepatitis - C Physical Exam - Vital signs Vitals: Temp Pulse Resp BP Pulse Ox 98.8 F 98 18 124/79 98 01/24/18 10:01/24/18 10:01/24/18 10:01/24/18 10:01/24/18 10:29 Course - Vital Signs Vital signs: Temp Pulse Resp BP Pulse Ox 98.8 F 98 18 124/79 98 01/24/18 10:01/24/18 10:01/24/18 10:01/24/18 10:01/24/18 10:29
--- NOTE | 2018-01-24 11:17 | ER Document Report ---
ED General - General Chief Complaint: Back Pain Stated Complaint: BACK PAIN Time Seen by Provider: 01/24/18 10:40 Mode of Arrival: Wheelchair TRAVEL OUTSIDE OF THE [place] IN LAST 30 DAYS: No - HPI Notes: 32-year-old male presents to the ED with complaints of being unable to walk, acute lower back pain with weakness as well as having a fever that started yesterday, back pain is been occurring for the last week. Patient has been seen at [facility] twice and this emergency room on 01/22/18 for acute lower back pain, told he had sciatica and given Valium prescription. Patient reports he has new onset weakness, severe pain to his right lower back and unable to ambulate since yesterday. Pain is 10 out of 10, sharp stabbing and constant. Patient's last bowel movement was 2 days ago, did void this morning. Denies chest pain,palpitations, shortness of breath, dyspnea, nausea, vomiting, diarrhea, abdominal pain, hematuria,blurred vision, double vision, loss of vision, speech changes, LH, dizziness, syncope, headaches, wheezing, ST , URI, neck pain, weakness, bowel or bladder dysfunction, saddle anesthesia, numbness or tingling in bilateral upper extremities equally, muscle paralysis, weakness in bilateral upper equally or rash. Denies IV drug use. - Related Data Allergies/Adverse Reactions: No Known Allergies Allergy (Verified 01/24/18 10:24) Past Medical History - General Information source: Patient, Parent - Social History Smoking Status: Current Every Day Smoker Chew tobacco use (# tins/day): No Frequency of alcohol use: None Drug Abuse: None Family History: Reviewed & Not Pertinent Patient has suicidal ideation: No Patient has homicidal ideation: No Pulmonary Medical History: Reports: Hx Asthma - exercise induced Renal/ Medical History: Denies: Hx Peritoneal Dialysis GI Medical History: Reports: Hx Hepatitis - C Infectious Medical History: Reports: Hx Hepatitis - C Review of Systems - Review of Systems Constitutional: See HPI EENT: No symptoms reported Cardiovascular: No symptoms reported Respiratory: No symptoms reported Gastrointestinal: No symptoms reported Genitourinary: No symptoms reported Male Genitourinary: No symptoms reported Musculoskeletal: See HPI Skin: No symptoms reported Hematologic/Lymphatic: No symptoms reported Neurological/Psychological: See HPI Physical Exam - Vital signs Vitals: Temp Pulse Resp BP Pulse Ox 98.8 F 98 18 124/79 98 01/24/18 10:29 01/24/18 10:29 01/24/18 10:29 01/24/18 10:29 01/24/18 10:29 - Notes Notes: PHYSICAL EXAMINATION: GENERAL: Well-appearing, well-nourished and in no acute distress. HEAD: Atraumatic, normocephalic. EYES: Pupils equal round and reactive to light, extraocular movements intact, sclera anicteric, conjunctiva are normal. ENT: Nares patent, oropharynx clear without exudates. Moist mucous membranes. NECK: Normal range of motion, supple without lymphadenopathy LUNGS: Breath sounds clear to auscultation bilaterally and equal. No wheezes rales or rhonchi. HEART: Regular rate and rhythm without murmurs ABDOMEN: Soft, nontender, nondistended abdomen. No guarding, no rebound. No masses appreciated. : Normal sphincter tone, no hemorrhoids or masses palpable Musculoskeletal: limited range of motion due to pain, no pitting or edema. No cyanosis. Pain with flexion and extension at 10 degrees, unable to move hips due to pain. DTR +2 in R>L. Strength 2 out of 5 in RLE, Strength 5/5 in LLE both distally. normal motor and sensory function in BLE equally. Distal pulses + 2 BLE equally. Noted lumbar spinal tenderness and paraspinal tenderness R>L. No CVA tenderness bilaterally. Femoral pulses + 2 bilaterally and equally. No abrasions, scars, lacerations, ecchymosis of any recent trauma. unable to witness gait d/t pt in extreme pain NEUROLOGICAL: Cranial nerves grossly intact. Normal speech, normal gait. Normal sensory, motor exams PSYCH: Normal mood, normal affect. SKIN: Warm, Dry, normal turgor, no rashes or lesions noted. Course - Re-evaluation Re-evalutation: 01/24/18 13:23 32-year-old male who is been seen in the ED setting 3 times in the last week for right lower back pain. CBC shows a leukocytosis of 17.4 with a left shift. CMP negative for renal or hepatic dysfunction, no electrolyte disturbances. Normal rectal tone, post void residual zero. Consulted with Dr. Jeff Weaver at 1540 regarding septic right SI joint with adjacent marrow edema 4 x 2 cm abscess protruding off the ventral aspect right SI joint deep to the umbilicus muscle in the pelvis. Diffuse edema in the umbilicus and right paraspinal muscles without other abscess identified at this time. With 4 cm x 2 cm abscess with osteomyelitis along with early septic arthritis seen on MRI of lumbar spine with and without contrast. Stated that he would consult but will not be the only service taking care of this patient, would like medical involved. Consulted with Dr. Marisel Cano, stated that hospitalists would take patient with orthopedics consulting, consulted with Dr. Yemi Liu, hospitalist to be admitted to medical service with orthopedic consulting. Patient has remained n.p.o. Pain remains under control, all questions and concerns answered by this provider with patient and mother. - Vital Signs Vital signs: Temp Pulse Resp BP Pulse Ox 98.8 F 98 14 148/88 H 98 01/24/18 10:29 01/24/18 10:29 01/24/18 16:01 01/24/18 16:01 01/24/18 16:01 - Laboratory Result Diagrams: 01/24/18 11:05 01/24/18 11:05 Laboratory results interpreted by me: 01/24/18 01/24/18 11:05 11:05 WBC 17.4 H Seg Neuts % (Manual) 84 H Band Neutrophils % 2 L Lymphocytes % (Manual) 5 L Abs Neuts (Manual) 14.6 H ESR 105 H Glucose 123 H Direct Bilirubin 0.6 H C-Reactive Protein 204.0 H Discharge - Discharge Clinical Impression: right SI joint abscess, Leukocytosis, Right SI joint osteomyelitis Condition: Stable Admitting Provider: Hospitalist - Dr. Yemi Liu Unit Admitted: [facility]
[2018-01-24 11:23] LABS: HEMATOCRIT 39.8 % (37.9-51.0); HEMOGLOBIN 13.5 g/dL (13.5-17.0); MEAN CORPUSCULAR HEMOGLOBIN 28.2 pg (27.0-33.4); MEAN CORPUSCULAR VOLUME 83 fl (80-97); PLATELET COUNT 293 10^3/uL (150-450); RED BLOOD COUNT 4.79 10^6/uL (4.35-5.55); RED CELL DISTRIBUTION WIDTH 13.8 % (11.5-14.0); WHITE BLOOD COUNT 17.4 10^3/uL (4.0-10.5)
[2018-01-24 11:50] LABS: ALANINE AMINOTRANSFERASE 42 U/L (21-72); ALBUMIN 3.9 g/dL (3.5-5.0); ALKALINE PHOSPHATASE 116 U/L (38-126); ANION GAP 12 (5-19); ASPARTATE AMINO TRANSFERASE 58 U/L (17-59); BILIRUBIN,DIRECT 0.6 mg/dL (0.0-0.4); BILIRUBIN,TOTAL 0.8 mg/dL (0.2-1.3); BLOOD UREA NITROGEN 17 mg/dL (7-20); CALCIUM 9.2 mg/dL (8.4-10.2); CARBON DIOXIDE 24 mmol/L (22-30); CHLORIDE 105 mmol/L (98-107); GLUCOSE 123 mg/dL (75-110); POTASSIUM 4.2 mmol/L (3.6-5.0); SODIUM 141.4 mmol/L (137-145); TOTAL PROTEIN 8.1 g/dL (6.3-8.2)
[2018-01-24 12:00] LABS: ERYTHROCYTE SEDIMENTATION RATE 105 mm/hr (0-15)
[2018-01-24 12:02] LABS: ABSOLUTE MONOCYTES # (MANUAL) 1.4 10^3/uL (0.1-1.4); BAND NEUTROPHILS % (MANUAL) 2 % (3-5); BASOPHILS % (MANUAL) 0 % (0-2); EOSINOPHILS % (MANUAL) 0 % (0-6); LYMPHOCYTES % (MANUAL) 5 % (13-45); MONOCYTES % (MANUAL) 8 % (3-13); TOTAL CELLS COUNTED 100
[2018-01-24 12:07] LABS: PLATELET COMMENT ADEQUATE; ROULEAUX 1+; TEAR DROP CELLS SLIGHT; TOXIC VACUOLATION PRESENT
[2018-01-24 12:08] LABS: POIKILOCYTOSIS SLIGHT
[2018-01-24 12:09] LABS: ANISOCYTOSIS SLIGHT
[2018-01-24 12:17] LABS: ABSOLUTE NEUTROPHILS# (MANUAL) 14.6 10^3/uL (1.7-8.2); SEGMENTED NEUTROPHILS % (MAN) 84 % (42-78)
[2018-01-24 12:22] LABS: TOXIC GRANULATION SLIGHT
--- NOTE | 2018-01-24 13:35 | RADIOLOGY REPORT (SQ) ---
EXAM DESCRIPTION: CHEST SINGLE VIEW COMPLETED DATE/TIME: 01/24/2018 1:21 pm REASON FOR STUDY: fever, cough x 1 month COMPARISON: Two-view chest 11/10/2017 EXAM PARAMETERS: NUMBER OF VIEWS: One view. TECHNIQUE: Single frontal radiographic view of the chest acquired. RADIATION DOSE: NA LIMITATIONS: None. FINDINGS: LUNGS AND PLEURA: No opacities, masses or pneumothorax. No pleural effusion. MEDIASTINUM AND HILAR STRUCTURES: No masses. Contour normal. HEART AND VASCULAR STRUCTURES: Stable mild cardiomegaly BONES: No acute findings. HARDWARE: None in the chest. OTHER: No other significant finding. IMPRESSION: Stable mild cardiomegaly. No acute infiltrates. No pleural effusion. No pneumothorax. TECHNICAL DOCUMENTATION: JOB ID: [id number] [employer]- All Rights Reserved Reading location - IP/workstation name: [email or web address]
[2018-01-24 14:16] LABS: APPEARANCE,URINE CLEAR; BILIRUBIN,URINE NEGATIVE (NEGATIVE); COLOR,URINE YELLOW; GLUCOSE, URINE NEGATIVE (NEGATIVE); KETONES,URINE NEGATIVE (NEGATIVE); LEUKOCYTE ESTERASE,URINE NEGATIVE (NEGATIVE); NITRITE,URINE NEGATIVE (NEGATIVE); PROTEIN,URINE NEGATIVE (NEGATIVE); URINE SPECIFIC GRAVITY 1.011; UROBILINOGEN,URINE NEGATIVE mg/dL (<2.0)
[2018-01-24] MEDS ORDERED: VANCOMYCIN HCL INJ 1000 MG VIAL IV ONE (15:23)
[2018-01-24] MEDS ORDERED: KETOROLAC TROMETHAMINE INJ/PF 30 MG/1 ML SDV IV ONE (15:26)
--- NOTE | 2018-01-24 15:36 | RADIOLOGY REPORT (SQ) ---
EXAM DESCRIPTION: MRI LUMBAR SPINE COMBO COMPLETED DATE/TIME: 01/24/2018 3:09 pm REASON FOR STUDY: low back pain, fever hip pain, groin pain, history of IVDA COMPARISON: MRI lumbar spine 01/10/2017 TECHNIQUE: Sagittal and Axial imaging includes T1, T1 post gadolinium, T2, STIR and gradient echo se quences. Coronal T2/HASTE imaging. CONTRAST TYPE AND DOSE: 20 mL Prohance. RENAL FUNCTION: GFR > 60. LIMITATIONS: Motion artifact throughout the study FINDINGS: Along the ventral aspect of the right SI joint, a 4.2 x 2.1 cm peripheral rim enhancing ab scess is present, deep to the iliacus muscle. This is best shown on the axial T1 postcontrast images 29-33. Stir images demonstrate abnormal edema in the right iliacus muscle in the pelvis, abnormal marrow tyree ma in the sacrum and innominate bone adjacent to the right SI joint, and edema in the right paraspina l muscles from L3 through L5. No other soft tissue abscess is identified. No epidural abscess. No abnormal nerve root contrast-enhancement. Findings are worrisome for infected right SI joint with adjacent osteomyelitis of the sacrum and inno minate bone. 4.2 x 2.1 cm abscess protruding off the ventral aspect right SI joint. This report was discussed with Dr. Edmondson. There is subtle edema and enhancement along the left SI joint, early infection in the left SI joint c ould not be excluded. VERTEBRAE: Intact. No fractures. BONE MARROW: Edema in the sacrum and innominate bone adjacent to the right SI joint worrisome for ost eomyelitis. Minimal edema in the left innominate bone and sacrum adjacent to the left SI joint, worr isome for early osteomyelitis/infection. DISC SIGNAL: Normal. No significant abnormal signal or loss of height. POSTERIOR ELEMENTS: Generally intact. No pars defect evident. HARDWARE: None in the spine. CORD AND CONUS: Normal in size and signal intensity. Conus at the L1-2 level. Lumbar disc levels demonstrate no high-grade central or foraminal encroachment. IMPRESSION: Septic right SI joint with adjacent marrow edema and contrast enhancement 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 4 x 2 cm abscess protruding off the ventral aspect r ight SI joint deep to the iliacus muscle in the pelvis. Diffuse edema in the iliacus and right mary kev muscles without other abscess identified at this time. Signal abnormalities worrisome for early septic arthritis in the left SI joint without abscess. No epidural abscess. Findings discussed with the emergency room attending physician. TECHNICAL DOCUMENTATION: JOB ID: [id number] [employer]- All Rights Reserved Reading location - IP/workstation name: [email or web address] [id number]
[2018-01-24] MEDS ORDERED: NICOTINE 14 MG/24 HR PATCH.TD24 TD ONE (16:10)
[2018-01-24] MEDS ORDERED: PROMETHAZINE HCL 25 MG TABLET PO PRN (16:46)
[2018-01-24] MEDS ORDERED: VANCOMYCIN HCL 2,000 MG in DEXTROSE 5%-WATER 500 ML IV ONE (16:57)
[2018-01-24] MEDS ORDERED: VANCOMYCIN HCL 0 MG in DEXTROSE 5%-WATER 250 ML IV NR (17:00)
[2018-01-24] MEDS ORDERED: FENTANYL 25 MCG/HR PATCH.TD72 TD ONE (17:08)
[2018-01-24 17:25] LABS: URINE AMPHETAMINES SCREEN NEGATIVE; URINE BARBITURATES SCREEN NEGATIVE; URINE BENZODIAZEPINES SCREEN UNCONFIRMED POSITIVE; URINE COCAINE SCREEN NEGATIVE; URINE MARIJUANA (THC) SCREEN NEGATIVE; URINE METHADONE SCREEN NEGATIVE; URINE PHENCYCLIDINE SCREEN NEGATIVE
--- NOTE | 2018-01-24 17:26 | PDOC H&P ---
History of Present Illness History of Present Illness: JOEL BENAVIDES is a 32 year old male patient with no significant past medical history presented with one-week history of back and right leg pain. Patient has been in apparent good state of health up until one week when he started to have pain on his right thigh anteriorly for which he visited different ER at 4 occasions including here at its [facility]. Had been managed with ibuprofen, Toradol, prednisone and Valium to no avail. Patient showed up here today for the second time and he has MRI which is reported as follow: Septic right sacroiliac joint with adjacent marrow edema and contrast enhancement 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 42 2 cm abscess protruding off the ventral aspect of right sacroiliac joint deep to the iliac muscle in the pelvis diffuse edema in the iliac crests and right paraspinal muscle without other abscess identification at this time signal abnormalities worrisome for early septic arthritis in the left sacroiliac joint without abscess. No epidural abscess. Patient denies any nausea, vomiting, abdominal pain, diarrhea or any urinary complaints. Past Medical History Pulmonary Medical History: Reports: Asthma - exercise induced GI Medical History: Reports: Hepatitis - C Social History Smoking Status: Current Every Day Smoker Frequency of Alcohol Use: None Hx Recreational Drug Use: No Drugs: None - Advance Directive Resuscitation Status: Full Code Family History Family History: Reviewed & Not Pertinent, Hypertension Parental Family History Reviewed: Yes Children Family History Reviewed: Yes Sibling(s) Family History Reviewed.: Yes Medication/Allergy Home Medications: No Home Medications 01/24/18 Allergies/Adverse Reactions: No Known Allergies Allergy (Verified 01/24/18 10:24) Review of Systems Constitutional: PRESENT: as per HPI Eyes: PRESENT: as per HPI Ears: PRESENT: as per HPI Cardiovascular: PRESENT: as per HPI Respiratory: PRESENT: as per HPI Gastrointestinal: PRESENT: as per HPI Musculoskeletal: PRESENT: back pain Psychiatric: PRESENT: as per HPI Physical Exam Vital Signs: Temp Pulse Resp BP Pulse Ox 98.8 F 98 14 148/88 H 98 01/24/18 10:29 01/24/18 10:29 01/24/18 16:01 01/24/18 16:01 01/24/18 16:01 Intake & Output 01/23/18 01/24/18 01/25/18 06:59 06:59 06:59 Output Total 550 Balance -550 Weight 101 kg General appearance: PRESENT: mild distress Head exam: PRESENT: atraumatic Eye exam: PRESENT: conjunctiva pink Neck exam: ABSENT: carotid bruit, JVD, lymphadenopathy, thyromegaly Respiratory exam: PRESENT: clear to auscultation jose. ABSENT: rales, rhonchi, wheezes Cardiovascular exam: PRESENT: RRR. ABSENT: diastolic murmur, rubs, systolic murmur Neurological exam: PRESENT: alert, awake, oriented to time, oriented to situation Results Laboratory Results: 01/24/18 11:05 01/24/18 11:05 01/24/18 01/24/18 01/24/18 11:05 11:05 12:02 WBC 17.4 H RBC 4.79 Hgb 13.5 Hct 39.8 MCV 83 MCH 28.2 MCHC 34.0 RDW 13.8 Plt Count 293 Seg Neutrophils % Not Reportable Lymphocytes % Not Reportable Monocytes % Not Reportable Eosinophils % Not Reportable Basophils % Not Reportable Absolute Neutrophils Not Reportable Absolute Lymphocytes Not Reportable Absolute Monocytes Not Reportable Absolute Eosinophils Not Reportable Absolute Basophils Not Reportable Sodium 141.4 Potassium 4.2 Chloride 105 Carbon Dioxide 24 Anion Gap 12 BUN 17 Creatinine 0.71 Est GFR ( Amer) > 60 Est GFR (Non-Af Amer) > 60 Glucose 123 H Lactic Acid Calcium 9.2 Total Bilirubin 0.8 AST 58 ALT 42 Alkaline Phosphatase 116 C-Reactive Protein 204.0 H Total Protein 8.1 Albumin 3.9 Urine Color Urine Appearance Urine pH Ur Specific [place] Urine Protein Urine Glucose (UA) Urine Ketones Urine Blood Urine Nitrite Ur Leukocyte Esterase Urine WBC (Auto) Urine RBC (Auto) Stool Occult Blood NEGATIVE 01/24/18 01/24/18 12:25 13:50 WBC RBC Hgb Hct MCV MCH MCHC RDW Plt Count Seg Neutrophils % Lymphocytes % Monocytes % Eosinophils % Basophils % Absolute Neutrophils Absolute Lymphocytes Absolute Monocytes Absolute Eosinophils Absolute Basophils Sodium Potassium Chloride Carbon Dioxide Anion Gap BUN Creatinine Est GFR ( Amer) Est GFR (Non-Af Amer) Glucose Lactic Acid 0.8 Calcium Total Bilirubin AST ALT Alkaline Phosphatase C-Reactive Protein Total Protein Albumin Urine Color YELLOW Urine Appearance CLEAR Urine pH 6.0 Ur Specific [place] 1.011 Urine Protein NEGATIVE Urine Glucose (UA) NEGATIVE Urine Ketones NEGATIVE Urine Blood NEGATIVE Urine Nitrite NEGATIVE Ur Leukocyte Esterase NEGATIVE Urine WBC (Auto) 1 Urine RBC (Auto) 0 Stool Occult Blood Impressions: Lumbar Spine MRI 01/24/18 10:48 IMPRESSION: Septic right SI joint with adjacent marrow edema and contrast enhancement 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 4 x 2 cm abscess protruding off the ventral aspect right SI joint deep to the iliacus muscle in the pelvis. Diffuse edema in the iliacus and right paraspinal muscles without other abscess identified at this time. Signal abnormalities worrisome for early septic arthritis in the left SI joint without abscess. No epidural abscess. Findings discussed with the emergency room attending physician. Chest X-Ray 01/24/18 12:34 IMPRESSION: Stable mild cardiomegaly. No acute infiltrates. No pleural effusion. No pneumothorax. Assessment & Plan - Diagnosis (1) Right and left IS joint septic arthritis Is this a current diagnosis for this admission?: Yes Plan: Patient has been started on vancomycin and cefepime. Orthopedic surgeon has been consulted. (2) Sacral bone osteomyelitis Is this a current diagnosis for this admission?: Yes Plan: As a #1 (3) I iliac muscle abscess Is this a current diagnosis for this admission?: Yes Plan: Orthopedic surgeon consulted patient is on antibiotics. (4) Sepsis Qualifiers: Sepsis type: sepsis due to unspecified organism Qualified Code(s): A41.9 - Sepsis, unspecified organism Is this a current diagnosis for this admission?: Yes Plan: Management as a #1.
[2018-01-24] MEDS ORDERED: NORMAL SALINE 1000 ML 1,000 ML IV ONE (17:27)
--- NOTE | 2018-01-24 17:51 | PDOC CONSULTATION ---
Consultation Consult Date: 01/24/18 Consult reason:: Right lower extremity pain History of Present Illness History of Present Illness: JOEL BENAVIDES is a 32 year old male The patient is an otherwise healthy 32-year-old white male with a noncontributory past medical history who began to have problems with pleurisy in October 2017. This was treated with increasing doses of prednisone and subsequently Toradol. The patient now presents with approximately one-week history of first left and now right inguinal and hip pain. He has difficulty weightbearing. No history of fever sweats and chills until last night. Past Medical History Pulmonary Medical History: Reports: Asthma - exercise induced GI Medical History: Reports: Hepatitis - C Past Surgical History Past Surgical History: Reports: None Social History Information Source: Patient, Parent, [facility] Records Smoking Status: Current Every Day Smoker Frequency of Alcohol Use: None Hx Recreational Drug Use: No Drugs: None - Advance Directive Resuscitation Status: Full Code Family History Family History: Reviewed & Not Pertinent, Hypertension Parental Family History Reviewed: No Children Family History Reviewed: No Sibling(s) Family History Reviewed.: No Medication/Allergy Home Medications: No Home Medications 01/24/18 Allergies/Adverse Reactions: No Known Allergies Allergy (Verified 01/24/18 10:24) Review of Systems All systems: as per PMH Constitutional: PRESENT: as per HPI, fever(s) Respiratory: PRESENT: other - Questionable pleurisy bilaterally Physical Exam Vital Signs: Temp Pulse Resp BP Pulse Ox 37.1 C 98 14 148/88 H 98 01/24/18 10:29 01/24/18 10:29 01/24/18 16:01 01/24/18 16:01 01/24/18 16:01 Intake & Output 01/23/18 01/24/18 01/25/18 06:59 06:59 06:59 Output Total 550 Balance -550 Weight 101 kg Physical Exam: The patient is a somewhat overweight middle-aged white male lying in hospital [facility] with the right upper extremity propped up with a pillow underneath the knee. Any passive range of motion of the right hip causes significant discomfort. General appearance: PRESENT: mild distress Head exam: PRESENT: normocephalic Additional Comments: Diaphoretic Respiratory exam: PRESENT: unlabored Pulses: PRESENT: +1 pedal pulses bilateral Vascular exam: PRESENT: normal capillary refill GI/Abdominal exam: PRESENT: soft Rectal exam: PRESENT: deferred Extremities exam: PRESENT: other - Right lower extremity elevated on a pillow. Passive range of motion of the right hip is extremely painful. Distal neurovascular examination is intact. There is no skin abnormalities. Neurological exam: PRESENT: alert, awake, oriented to person, oriented to place , oriented to time, oriented to situation. ABSENT: motor sensory deficit Psychiatric exam: PRESENT: appropriate affect, normal mood. ABSENT: homicidal ideation, suicidal ideation Skin exam: PRESENT: dry, intact, warm. ABSENT: cyanosis, rash Results Laboratory Results: 01/24/18 11:05 01/24/18 11:05 01/24/18 01/24/18 01/24/18 11:05 11:05 12:02 WBC 17.4 H RBC 4.79 Hgb 13.5 Hct 39.8 MCV 83 MCH 28.2 MCHC 34.0 RDW 13.8 Plt Count 293 Seg Neutrophils % Not Reportable Lymphocytes % Not Reportable Monocytes % Not Reportable Eosinophils % Not Reportable Basophils % Not Reportable Absolute Neutrophils Not Reportable Absolute Lymphocytes Not Reportable Absolute Monocytes Not Reportable Absolute Eosinophils Not Reportable Absolute Basophils Not Reportable Sodium 141.4 Potassium 4.2 Chloride 105 Carbon Dioxide 24 Anion Gap 12 BUN 17 Creatinine 0.71 Est GFR ( Amer) > 60 Est GFR (Non-Af Amer) > 60 Glucose 123 H Lactic Acid Calcium 9.2 Total Bilirubin 0.8 AST 58 ALT 42 Alkaline Phosphatase 116 C-Reactive Protein 204.0 H Total Protein 8.1 Albumin 3.9 Urine Color Urine Appearance Urine pH Ur Specific Trumann Urine Protein Urine Glucose (UA) Urine Ketones Urine Blood Urine Nitrite Ur Leukocyte Esterase Urine WBC (Auto) Urine RBC (Auto) Stool Occult Blood NEGATIVE 01/24/18 01/24/18 12:25 13:50 WBC RBC Hgb Hct MCV MCH MCHC RDW Plt Count Seg Neutrophils % Lymphocytes % Monocytes % Eosinophils % Basophils % Absolute Neutrophils Absolute Lymphocytes Absolute Monocytes Absolute Eosinophils Absolute Basophils Sodium Potassium Chloride Carbon Dioxide Anion Gap BUN Creatinine Est GFR ( Amer) Est GFR (Non-Af Amer) Glucose Lactic Acid 0.8 Calcium Total Bilirubin AST ALT Alkaline Phosphatase C-Reactive Protein Total Protein Albumin Urine Color YELLOW Urine Appearance CLEAR Urine pH 6.0 Ur Specific Trumann 1.011 Urine Protein NEGATIVE Urine Glucose (UA) NEGATIVE Urine Ketones NEGATIVE Urine Blood NEGATIVE Urine Nitrite NEGATIVE Ur Leukocyte Esterase NEGATIVE Urine WBC (Auto) 1 Urine RBC (Auto) 0 Stool Occult Blood Impressions: Lumbar Spine MRI 01/24/18 10:48 IMPRESSION: Septic right SI joint with adjacent marrow edema and contrast enhancement 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 4 x 2 cm abscess protruding off the ventral aspect right SI joint deep to the iliacus muscle in the pelvis. Diffuse edema in the iliacus and right paraspinal muscles without other abscess identified at this time. Signal abnormalities worrisome for early septic arthritis in the left SI joint without abscess. No epidural abscess. Findings discussed with the emergency room attending physician. Chest X-Ray 01/24/18 12:34 IMPRESSION: Stable mild cardiomegaly. No acute infiltrates. No pleural effusion. No pneumothorax. Status: Imported from PACS Assessment & Plan - Diagnosis (1) Right and left IS joint septic arthritis Is this a current diagnosis for this admission?: Yes Plan: 32-year-old white male with a rather confusing recent past medical history is difficult for me to put together in a concise single diagnosis. At this point the patient has a right SI joint osteomyelitis/abscess and a pre-septic clinical picture with leukocytosis, left shift, and temp T-max of 38.8. I think the abscess needs to be decompressed and the infectious organism needs to be identified for appropriate antibiotic targeting. Additionally I think there probably needs to be a debridement of what is presumed to be an osteomyelitis at the sacroiliac joint. I discussed the situation with Dr. Schneider about percutaneous decompression of the abscess. She did not feel that this was amenable to an interventional radiology procedure. I tentatively scheduled the patient for tomorrow morning for posterior approach to the SI joint and a decompression of the SI abscess. I have asked Dr. Schofield for possible assistance. - Time Time Spent: 50 to 70 Minutes Anticipated discharge: Other Within: Other
[2018-01-24] MEDS ORDERED: LANSOPRAZOLE 30 MG TAB.RAP.DR PO ONE (18:00)
[2018-01-24] MEDS: CEFEPIME 2 GM/D5W RTU 2 GM/50 ML RTUPB IV SCH (18:29)
[2018-01-24] MEDS ORDERED: DEXTROSE 40% GEL 15 GM TUBE PO PRN ×2 (18:45)
[2018-01-24] MEDS ORDERED: GLUCAGON,HUMAN RECOMB 1 MG INJ SUBCUT PRN (18:45)
[2018-01-24] MEDS ORDERED: DEXTROSE 50%-WATER 25 GM/50 ML DISP.SYRIN IV PRN ×2 (18:45)
[2018-01-24] MEDS: HYDROMORPHONE HCL INJ/PF 2 MG/ML AMPULE IV PRN ×3 (18:52→23:27)
[2018-01-24] MEDS ORDERED: ACETAMINOPHEN 325 MG TABLET PO ONE (20:41)
[2018-01-24] MEDS: KETOROLAC TROMETHAMINE INJ/PF 30 MG/1 ML SDV IV PRN (21:14)
[2018-01-24] MEDS: VANCOMYCIN HCL 1,250 MG in DEXTROSE 5%-WATER 250 ML IV SCH (21:42)
[2018-01-24] MEDS: HEPARIN SOD (PORCINE) 5,000 UNIT/ML 1 ML SYRINGE SUBCUT SCH (21:45)
[2018-01-25] MEDS: OXYCODONE-ACETAMINOPHEN 5-325 MG TABLET PO PRN (00:22)
[2018-01-25] MEDS: HYDROMORPHONE HCL INJ/PF 2 MG/ML AMPULE IV PRN ×7 (02:05→21:53)
[2018-01-25] MEDS: KETOROLAC TROMETHAMINE INJ/PF 30 MG/1 ML SDV IV PRN ×4 (02:54→23:03)
[2018-01-25] MEDS: VANCOMYCIN HCL 1,250 MG in DEXTROSE 5%-WATER 250 ML IV SCH ×4 (02:55→23:33)
[2018-01-25] MEDS: LANSOPRAZOLE 30 MG TAB.RAP.DR PO SCH (05:19)
[2018-01-25] MEDS: HEPARIN SOD (PORCINE) 5,000 UNIT/ML 1 ML SYRINGE SUBCUT SCH ×3 (05:19→22:31)
[2018-01-25] MEDS ORDERED: CEFEPIME 2 GM/D5W RTU 2 GM/50 ML RTUPB IV ONE (05:48)
[2018-01-25] MEDS: CEFEPIME 2 GM/D5W RTU 2 GM/50 ML RTUPB IV SCH ×2 (06:10→18:04)
[2018-01-25 07:07] LABS: HEMATOCRIT 37.8 % (37.9-51.0); HEMOGLOBIN 12.9 g/dL (13.5-17.0); MEAN CORPUSCULAR HEMOGLOBIN 28.2 pg (27.0-33.4); MEAN CORPUSCULAR HGB CONC 34.1 g/dL (32.0-36.0); MEAN CORPUSCULAR VOLUME 83 fl (80-97); PLATELET COUNT 207 10^3/uL (150-450); RED BLOOD COUNT 4.58 10^6/uL (4.35-5.55); RED CELL DISTRIBUTION WIDTH 13.7 % (11.5-14.0); WHITE BLOOD COUNT 11.9 10^3/uL (4.0-10.5)
[2018-01-25 07:12] LABS: INTERNATIONAL RATION (INR) 1.04; PROTHROMBIN TIME 14.1 SEC (11.4-15.4)
[2018-01-25 07:13] LABS: PARTIAL THROMBOPLASTIN TIME 34.9 SEC (23.5-35.8)
[2018-01-25 07:30] LABS: ANION GAP 11 (5-19); BLOOD UREA NITROGEN 24 mg/dL (7-20); CALCIUM 8.2 mg/dL (8.4-10.2); CARBON DIOXIDE 23 mmol/L (22-30); CHLORIDE 104 mmol/L (98-107); GLUCOSE 121 mg/dL (75-110); POTASSIUM 4.4 mmol/L (3.6-5.0); SODIUM 137.7 mmol/L (137-145)
[2018-01-25 07:36] LABS: ABSOLUTE LYMPHOCYTES# (MANUAL) 1.5 10^3/uL (0.5-4.7); ABSOLUTE MONOCYTES # (MANUAL) 0.7 10^3/uL (0.1-1.4); ABSOLUTE NEUTROPHILS# (MANUAL) 9.6 10^3/uL (1.7-8.2); BASOPHILS % (MANUAL) 0 % (0-2); EOSINOPHILS % (MANUAL) 0 % (0-6); LYMPHOCYTES % (MANUAL) 13 % (13-45); MONOCYTES % (MANUAL) 6 % (3-13); PLATELET COMMENT ADEQUATE; RBC MORPHOLOGY COMMENT NORMO-CYTIC/CHROMIC; SEGMENTED NEUTROPHILS % (MAN) 81 % (42-78); TOTAL CELLS COUNTED 100
[2018-01-25] MEDS ORDERED: FENTANYL CITRATE INJ/PF 250 MCG/5 ML AMPULE ONE (07:41)
[2018-01-25] MEDS ORDERED: MIDAZOLAM 2 MG/2 ML INJ ONE (07:41)
[2018-01-25] MEDS ORDERED: ACETAMINOPHEN 1,000 MG/100 ML RTUPB IV ONE (07:41)
[2018-01-25] MEDS ORDERED: PROPOFOL INJ 200 MG/20 ML VIAL IV ONE (07:41)
[2018-01-25] MEDS ORDERED: HYDROMORPHONE HCL INJ/PF 2 MG/ML AMPULE ONE (07:42)
[2018-01-25] MEDS ORDERED: THROMBIN (BOVINE) TOPICAL 20000 UNIT VIAL ONE (07:45)
[2018-01-25] MEDS ORDERED: BACITRACIN INJ 50,000 UNIT VIAL ONE (07:45)
[2018-01-25] MEDS ORDERED: THROMBIN (BOVINE) 5000 UNIT EPITAXIS KIT ONE (07:45)
[2018-01-25] MEDS ORDERED: PROMETHAZINE HCL INJ 25 MG/1 ML VIAL IV PRN ×2 (08:51)
[2018-01-25] MEDS ORDERED: DIPHENHYDRAMINE HCL 50 MG/ML VIAL IV PRN (08:51)
[2018-01-25] MEDS ORDERED: MORPHINE SULFATE 10 MG/ML INJ IV PRN (08:51)
[2018-01-25] MEDS ORDERED: FENTANYL CITRATE INJ/PF 100 MCG/2 ML AMPUL IV PRN ×3 (08:51)
[2018-01-25] MEDS ORDERED: MEPERIDINE HCL/PF INJ 25 MG/1 ML DISP.SYRIN IV PRN (08:51)
[2018-01-25] MEDS ORDERED: DEXMEDETOMIDINE INJ 80 MCG/20 ML VIAL IV ONE (08:54)
[2018-01-25] MEDS ORDERED: VANCOMYCIN HCL INJ 1000 MG VIAL ONE ×2 (09:19→09:23)
[2018-01-25] MEDS ORDERED: TRANEXAMIC ACID INJ/PF 1,000 MG/10 ML SDV IV ONE ×3 (09:22→13:00)
--- NOTE | 2018-01-25 10:04 | Operative Report ---
Operative Report DATE OF SURGERY: 01/25/18 PREOPERATIVE DIAGNOSIS: Pelvic osteomyelitis. Retroperitoneal abscess OPERATION: Resection pelvic osteomyelitis. Irrigation debridement of retroperitoneal abscess SURGEON: NATHALY MORALES ANESTHESIA: GA TISSUE REMOVED OR ALTERED: Cultures to microbiology. Debrided bone to pathology ESTIMATED BLOOD LOSS: 250 INTRAOPERATIVE FINDINGS: Large amount of purulent fluid PROCEDURE: With the patient prone on the operative table the lumbar spine and bilateral buttocks were prepped and draped in a sterile fashion. A curvilinear incision is made beginning over the posterior right iliac crest extending down over the PIS and then distally over the presumed sacroiliac joint. Sharp dissection was carried incision down to the muscle fascia. The muscle was elevated off the dorsal surface of the iliac crest and then subsequently off the dorsal aspect of the SI joint. A 18-gauge needle is advanced along the direction of the SI joint to provide some anatomic localization. The joint is exposed from the PSIS down to the sciatic notch. Both of these are easily palpable and fingers are placed around the anterior surface of both. In this process a large amount of purulent fluid is expressed primarily from the distal aspect of this in the region of the sciatic notch. An osteotome was then used to remove the posterior aspect of the iliac bone and an angled fashion so that this would end up at the anterior cortex of the SI joint. The bone is debrided leaving the anterior soft tissue structures intact. Great attention was placed to maintain the anterior soft tissue structures and stabilize the pelvis as well as not plunging into vital structures underneath. The bone surfaces are debrided the wound is luis care with pulse lavage 3 L containing bacitracin. The wound is again examined and all nonviable tissue is again debrided. Bone wax was used to stop the cancellus bone bleeding particularly from the ileum. OsteoSet pellets are mixed with vancomycin placed into the bone defect. The wound was then closed using interrupted PDS followed by jason. A sterile dressing was applied. There is patient's return to the PACU in satisfactory condition.
[2018-01-25] MEDS ORDERED: MORPHINE SULFATE 10 MG/ML INJ ONE (10:20)
[2018-01-25] MEDS ORDERED: ONDANSETRON 4 MG TAB.RAPDIS SL PRN (10:56)
[2018-01-25] MEDS: RINGERS SOLUTION,LACTATED 1,000 ML IV PRN (11:23)
[2018-01-25] MEDS ORDERED: FENTANYL 50 MCG/HR PATCH.TD72 TD ONE (12:30)
--- NOTE | 2018-01-25 13:17 | PDOC PROGRESS REPORT ---
Subjective Subjective:: This is a 32 years old male patient admitted yesterday for bilateral septic arthritis involving the sacroiliac joint and osteomyelitis of the adjacent sacrum. Patient has been started empirically on vancomycin and cefepime. His blood culture grew gram-positive cocci. Sensitivity pattern is pending. This morning patient was taken to the OR by Dr. Weaver who performed tomorrow and extensive debridement and draining of the collection of abscess. Currently his immediate postop is smooth and uneventful patient is awake alert and he reported his the pain is relatively subsided. Reason For Visit: SACROILIAC JOINT SEPTIC ARTHRITIS,OSTEOMYELITIS OF Physical Exam Vital Signs: Temp Pulse Resp BP Pulse Ox 99.4 F 96 18 135/70 H 94 01/25/18 11:16 01/25/18 11:16 01/25/18 11:16 01/25/18 11:16 01/25/18 11:16 Intake & Output 01/24/18 01/25/18 01/26/18 06:59 06:59 06:59 Intake Total 894 4850 Output Total 375 4200 Balance 519 650 Weight 102.9 kg General appearance: PRESENT: no acute distress, well-developed, well-nourished Head exam: PRESENT: atraumatic, normocephalic Eye exam: PRESENT: conjunctiva pink, EOMI, PERRLA. ABSENT: scleral icterus Ear exam: PRESENT: normal external ear exam Mouth exam: PRESENT: moist, tongue midline Neck exam: ABSENT: carotid bruit, JVD, lymphadenopathy, thyromegaly Respiratory exam: PRESENT: clear to auscultation jose. ABSENT: rales, rhonchi, wheezes Cardiovascular exam: PRESENT: RRR. ABSENT: diastolic murmur, rubs, systolic murmur Pulses: PRESENT: normal dorsalis pedis pul Vascular exam: PRESENT: normal capillary refill GI/Abdominal exam: PRESENT: normal bowel sounds, soft. ABSENT: distended, guarding, mass, organolmegaly, rebound, tenderness Rectal exam: PRESENT: deferred Extremities exam: PRESENT: full ROM, other - Tenderness over his anterior thigh. ABSENT: calf tenderness, clubbing, pedal edema Neurological exam: PRESENT: alert, awake, oriented to person, oriented to place , oriented to time, oriented to situation. ABSENT: motor sensory deficit Psychiatric exam: PRESENT: appropriate affect, normal mood. ABSENT: homicidal ideation, suicidal ideation Skin exam: PRESENT: dry, intact, warm. ABSENT: cyanosis, rash Results Laboratory Results: 01/25/18 06:50 01/25/18 06:50 01/25/18 01/25/18 01/25/18 06:50 06:50 06:50 WBC 11.9 H RBC 4.58 Hgb 12.9 L Hct 37.8 L MCV 83 MCH 28.2 MCHC 34.1 RDW 13.7 Plt Count 207 Seg Neutrophils % Not Reportable Lymphocytes % Not Reportable Monocytes % Not Reportable Eosinophils % Not Reportable Basophils % Not Reportable Absolute Neutrophils Not Reportable Absolute Lymphocytes Not Reportable Absolute Monocytes Not Reportable Absolute Eosinophils Not Reportable Absolute Basophils Not Reportable Sodium 137.7 Potassium 4.4 Chloride 104 Carbon Dioxide 23 Anion Gap 11 BUN 24 H Creatinine 0.84 Est GFR ( Amer) > 60 Est GFR (Non-Af Amer) > 60 Glucose 121 H Lactic Acid 0.8 Calcium 8.2 L Blood Type Antibody Screen 01/25/18 06:50 WBC RBC Hgb Hct MCV MCH MCHC RDW Plt Count Seg Neutrophils % Lymphocytes % Monocytes % Eosinophils % Basophils % Absolute Neutrophils Absolute Lymphocytes Absolute Monocytes Absolute Eosinophils Absolute Basophils Sodium Potassium Chloride Carbon Dioxide Anion Gap BUN Creatinine Est GFR ( Amer) Est GFR (Non-Af Amer) Glucose Lactic Acid Calcium Blood Type A POSITIVE Antibody Screen NEGATIVE Impressions: Lumbar Spine MRI 01/24/18 10:48 IMPRESSION: Septic right SI joint with adjacent marrow edema and contrast enhancement 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 4 x 2 cm abscess protruding off the ventral aspect right SI joint deep to the iliacus muscle in the pelvis. Diffuse edema in the iliacus and right paraspinal muscles without other abscess identified at this time. Signal abnormalities worrisome for early septic arthritis in the left SI joint without abscess. No epidural abscess. Findings discussed with the emergency room attending physician. Chest X-Ray 01/24/18 12:34 IMPRESSION: Stable mild cardiomegaly. No acute infiltrates. No pleural effusion. No pneumothorax. Assessment & Plan - Diagnosis (1) Right and left IS joint septic arthritis Is this a current diagnosis for this admission?: Yes Plan: Patient has been on vancomycin and cefepime. I will de-escalate or escalate his antibiotics based on his clinical response and culture and sensitivity results. (2) Sacral bone osteomyelitis Is this a current diagnosis for this admission?: Yes Plan: Continue cefepime and vancomycin. (3) I iliac muscle abscess Is this a current diagnosis for this admission?: Yes Plan: Status post incision and drainage and debridement.. (4) Sepsis Qualifiers: Sepsis type: sepsis due to unspecified organism Qualified Code(s): A41.9 - Sepsis, unspecified organism Is this a current diagnosis for this admission?: Yes Plan: Sepsis as evidenced by fever tachycardia leukocytosis and blood culture positive gram-positive cocci. His lactic acid is negative. (5) Leukocytosis Qualifiers: Leukocytosis type: unspecified Qualified Code(s): D72.829 - Elevated white blood cell count, unspecified Is this a current diagnosis for this admission?: Yes Plan: His white cell counts is trending down from 17-11. - Time Time Spent with patient: 35 or more minutes
[2018-01-25] MEDS: CLINDAMYCIN 600 MG/D5W RTU 600 MG/50 ML RTUPB IV SCH ×2 (13:29→21:52)
[2018-01-25] MEDS: MORPHINE SULFATE 10 MG/ML INJ IV PRN ×3 (13:31→19:48)
[2018-01-25] MEDS: DIPHENHYDRAMINE HCL 50 MG/ML VIAL IV PRN (14:08)
[2018-01-25] MEDS ORDERED: SUCCINYLCHOLINE CHLORIDE INJ 200 MG/10 ML VIAL ONE (14:25)
[2018-01-25] MEDS: ACETAMINOPHEN 325 MG TABLET PO PRN ×2 (17:25→23:03)
[2018-01-25 18:18] LABS: VANCOMYCIN,TROUGH 13.1 ug/mL (5.0-20.0)
[2018-01-25] MEDS ORDERED: NICOTINE 14 MG/24 HR PATCH.TD24 TD ONE (20:30)
[2018-01-26] MEDS: MORPHINE SULFATE 10 MG/ML INJ IV PRN ×3 (00:55→09:38)
[2018-01-26] MEDS: RINGERS SOLUTION,LACTATED 1,000 ML IV PRN ×2 (03:24→18:56)
[2018-01-26] MEDS: HYDROMORPHONE HCL INJ/PF 2 MG/ML AMPULE IV PRN ×7 (03:24→23:52)
[2018-01-26] MEDS: KETOROLAC TROMETHAMINE INJ/PF 30 MG/1 ML SDV IV PRN ×4 (05:03→23:14)
[2018-01-26] MEDS: CEFEPIME 2 GM/D5W RTU 2 GM/50 ML RTUPB IV SCH ×2 (05:04→18:54)
[2018-01-26] MEDS: CLINDAMYCIN 600 MG/D5W RTU 600 MG/50 ML RTUPB IV SCH ×3 (05:08→21:33)
[2018-01-26 05:20] LABS: ABSOLUTE BASOPHILS # (AUTO) 0.1 10^3/uL (0.0-0.2); ABSOLUTE EOSINOPHILS # (AUTO) 0.1 10^3/uL (0.0-0.6); ABSOLUTE LYMPHOCYTES (AUTO) 0.8 10^3/uL (0.5-4.7); ABSOLUTE MONOCYTES (AUTO) 0.7 10^3/uL (0.1-1.4); ABSOLUTE NEUT (AUTO) 8.4 10^3/uL (1.7-8.2); BASOPHILS % (AUTO) 0.7 % (0-2); EOSINOPHILS % (AUTO) 1.2 % (0-6); HEMATOCRIT 30.1 % (37.9-51.0); LYMPHOCYTES % (AUTO) 8.3 % (13-45); MEAN CORPUSCULAR HEMOGLOBIN 28.2 pg (27.0-33.4); MEAN CORPUSCULAR HGB CONC 34.1 g/dL (32.0-36.0); MEAN CORPUSCULAR VOLUME 83 fl (80-97); MONOCYTES % (AUTO) 7.2 % (3-13); PLATELET COUNT 229 10^3/uL (150-450); RED BLOOD COUNT 3.65 10^6/uL (4.35-5.55); RED CELL DISTRIBUTION WIDTH 13.4 % (11.5-14.0); SEGMENTED NEUTROPHILS % (AUTO) 82.6 % (42-78); TOTAL CELLS COUNTED % (AUTO) 100 %; WHITE BLOOD COUNT 10.2 10^3/uL (4.0-10.5)
[2018-01-26 05:22] LABS: HEMOGLOBIN 10.3 g/dL (13.5-17.0)
[2018-01-26 05:29] LABS: ANION GAP 9 (5-19); BLOOD UREA NITROGEN 17 mg/dL (7-20); CALCIUM 7.8 mg/dL (8.4-10.2); CARBON DIOXIDE 28 mmol/L (22-30); CHLORIDE 99 mmol/L (98-107); GLUCOSE 132 mg/dL (75-110); POTASSIUM 4.3 mmol/L (3.6-5.0); SODIUM 135.9 mmol/L (137-145)
[2018-01-26 05:43] LABS: C-REACTIVE PROTEIN 242.7 mg/L (<10.0)
[2018-01-26 06:09] LABS: ERYTHROCYTE SEDIMENTATION RATE 119 mm/hr (0-15)
[2018-01-26] MEDS: ACETAMINOPHEN 325 MG TABLET PO PRN ×2 (06:09→15:46)
[2018-01-26] MEDS: HEPARIN SOD (PORCINE) 5,000 UNIT/ML 1 ML SYRINGE SUBCUT SCH ×3 (06:10→21:33)
[2018-01-26] MEDS: LANSOPRAZOLE 30 MG TAB.RAP.DR PO SCH (06:11)
--- NOTE | 2018-01-26 06:37 | PDOC PROGRESS REPORT ---
Subjective Progress Note for:: 01/26/18 Reason For Visit: SACROILIAC JOINT SEPTIC ARTHRITIS,OSTEOMYELITIS OF 32-year-old white male with a right sacroiliac osteomyelitis/abscess status post I&D postop day 1. Patient reports improving left hip pain. Patient reports persistent right buttock and proximal leg pain with some numbness. Physical Exam Vital Signs: Temp Pulse Resp BP Pulse Ox 37.4 C 85 20 128/65 H 97 01/26/18 03:41 01/26/18 03:41 01/26/18 03:41 01/26/18 03:41 01/26/18 03:41 Intake & Output 01/24/18 01/25/18 01/26/18 06:59 06:59 06:59 Intake Total 894 8325 Output Total 375 5850 Balance 519 2475 Weight 102.9 kg General appearance: PRESENT: mild distress, severe distress Head exam: PRESENT: normocephalic Respiratory exam: PRESENT: unlabored Cardiovascular exam: PRESENT: RRR Pulses: PRESENT: +1 pedal pulses bilateral Vascular exam: PRESENT: normal capillary refill GI/Abdominal exam: PRESENT: soft Rectal exam: PRESENT: deferred Extremities exam: PRESENT: other - Patient unable to rollover in bed secondary to pain. Rotational passive range of motion of the right hip seems to be improved from preop but continues to be painful. Distal neurovascular examination is intact. Neurological exam: PRESENT: alert, awake, oriented to person, oriented to place , oriented to time, oriented to situation. ABSENT: motor sensory deficit Psychiatric exam: PRESENT: appropriate affect, normal mood. ABSENT: homicidal ideation, suicidal ideation Skin exam: PRESENT: dry, intact, warm. ABSENT: cyanosis, rash Results Laboratory Results: 01/26/18 04:28 01/26/18 04:28 01/25/18 01/25/18 01/25/18 06:50 06:50 06:50 WBC 11.9 H RBC 4.58 Hgb 12.9 L Hct 37.8 L MCV 83 MCH 28.2 MCHC 34.1 RDW 13.7 Plt Count 207 Seg Neutrophils % Not Reportable Lymphocytes % Not Reportable Monocytes % Not Reportable Eosinophils % Not Reportable Basophils % Not Reportable Absolute Neutrophils Not Reportable Absolute Lymphocytes Not Reportable Absolute Monocytes Not Reportable Absolute Eosinophils Not Reportable Absolute Basophils Not Reportable Sodium 137.7 Potassium 4.4 Chloride 104 Carbon Dioxide 23 Anion Gap 11 BUN 24 H Creatinine 0.84 Est GFR ( Amer) > 60 Est GFR (Non-Af Amer) > 60 Glucose 121 H Lactic Acid 0.8 Calcium 8.2 L C-Reactive Protein Blood Type Antibody Screen 01/25/18 01/26/18 01/26/18 06:50 04:28 04:28 WBC 10.2 RBC 3.65 L Hgb 10.3 L D Hct 30.1 L MCV 83 MCH 28.2 MCHC 34.1 RDW 13.4 Plt Count 229 Seg Neutrophils % 82.6 H Lymphocytes % 8.3 L Monocytes % 7.2 Eosinophils % 1.2 Basophils % 0.7 Absolute Neutrophils 8.4 H Absolute Lymphocytes 0.8 Absolute Monocytes 0.7 Absolute Eosinophils 0.1 Absolute Basophils 0.1 Sodium 135.9 L Potassium 4.3 Chloride 99 Carbon Dioxide 28 Anion Gap 9 BUN 17 Creatinine 0.72 Est GFR ( Amer) > 60 Est GFR (Non-Af Amer) > 60 Glucose 132 H Lactic Acid Calcium 7.8 L C-Reactive Protein 242.7 H Blood Type A POSITIVE Antibody Screen NEGATIVE Impressions: Lumbar Spine MRI 01/24/18 10:48 IMPRESSION: Septic right SI joint with adjacent marrow edema and contrast enhancement 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 4 x 2 cm abscess protruding off the ventral aspect right SI joint deep to the iliacus muscle in the pelvis. Diffuse edema in the iliacus and right paraspinal muscles without other abscess identified at this time. Signal abnormalities worrisome for early septic arthritis in the left SI joint without abscess. No epidural abscess. Findings discussed with the emergency room attending physician. Chest X-Ray 01/24/18 12:34 IMPRESSION: Stable mild cardiomegaly. No acute infiltrates. No pleural effusion. No pneumothorax. Status: Imported from PACS Assessment & Plan - Diagnosis (1) Right and left IS joint septic arthritis Is this a current diagnosis for this admission?: Yes Plan: At this point the retroperitoneal abscess has been drained and the sacroiliac osteomyelitis has been debrided. Microbiology is pending. Patient continues to have considerable pain and is difficult to decipher what is postop pain versus persistent preop pain. Sedimentation rate and C-reactive protein remain elevated but these can be used as an indicator of resolving infectious component. I think starting the patient on Lyrica for potentially sciatic nerve component and mobilizing with physical therapy is appropriate. - Time Time Spent with patient: 15-24 minutes Anticipated discharge: Home with Homehealth Within: Other
[2018-01-26] MEDS: VANCOMYCIN HCL 1,250 MG in DEXTROSE 5%-WATER 250 ML IV SCH ×4 (07:07→23:54)
[2018-01-26] MEDS: OXYCODONE HCL IR 5 MG TABLET PO PRN ×3 (08:33→21:33)
[2018-01-26] MEDS: OXYCODONE-ACETAMINOPHEN 5-325 MG TABLET PO PRN ×2 (08:33→13:30)
[2018-01-26] MEDS: DIAZEPAM 5 MG TABLET PO SCH ×2 (09:36→18:53)
[2018-01-26] MEDS ORDERED: PREGABALIN 75 MG CAPSULE PO SCH (10:00)
--- NOTE | 2018-01-26 10:31 | PDOC PROGRESS REPORT ---
Subjective Progress Note for:: 01/26/18 Subjective:: I seen patient lying in bed. He reports the pain on his left hip is getting better. I encouraged him to stay active and also consulted physical therapy to evaluate and treat him. Patient is running mild fever but no nausea, vomiting or diarrhea. He is eating well and tolerating well. Reason For Visit: SACROILIAC JOINT SEPTIC ARTHRITIS,OSTEOMYELITIS OF Physical Exam Vital Signs: Temp Pulse Resp BP Pulse Ox 99.4 F 85 20 128/65 H 97 01/26/18 03:41 01/26/18 03:41 01/26/18 03:41 01/26/18 03:41 01/26/18 09:46 Intake & Output 01/25/18 01/26/18 01/27/18 06:59 06:59 06:59 Intake Total 894 37369 Output Total 375 5850 Balance 519 5035 Weight 102.9 kg 105.2 kg Results Laboratory Results: 01/26/18 04:28 01/26/18 04:28 01/26/18 01/26/18 04:28 04:28 WBC 10.2 RBC 3.65 L Hgb 10.3 L D Hct 30.1 L MCV 83 MCH 28.2 MCHC 34.1 RDW 13.4 Plt Count 229 Seg Neutrophils % 82.6 H Lymphocytes % 8.3 L Monocytes % 7.2 Eosinophils % 1.2 Basophils % 0.7 Absolute Neutrophils 8.4 H Absolute Lymphocytes 0.8 Absolute Monocytes 0.7 Absolute Eosinophils 0.1 Absolute Basophils 0.1 Sodium 135.9 L Potassium 4.3 Chloride 99 Carbon Dioxide 28 Anion Gap 9 BUN 17 Creatinine 0.72 Est GFR ( Amer) > 60 Est GFR (Non-Af Amer) > 60 Glucose 132 H Calcium 7.8 L C-Reactive Protein 242.7 H Impressions: Lumbar Spine MRI 01/24/18 10:48 IMPRESSION: Septic right SI joint with adjacent marrow edema and contrast enhancement 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 4 x 2 cm abscess protruding off the ventral aspect right SI joint deep to the iliacus muscle in the pelvis. Diffuse edema in the iliacus and right paraspinal muscles without other abscess identified at this time. Signal abnormalities worrisome for early septic arthritis in the left SI joint without abscess. No epidural abscess. Findings discussed with the emergency room attending physician. Chest X-Ray 01/24/18 12:34 IMPRESSION: Stable mild cardiomegaly. No acute infiltrates. No pleural effusion. No pneumothorax. Assessment & Plan - Diagnosis (1) Right and left IS joint septic arthritis Is this a current diagnosis for this admission?: Yes Plan: I will continue his current antibiotics which includes cefepime and vancomycin and Dr. Weaver I did for him clindamycin. The blood culture results was positive for gram-positive cocci and the sensitivity will be released tomorrow. (2) Sacral bone osteomyelitis Is this a current diagnosis for this admission?: Yes Plan: Wound culture result is pending. I will continue the same antibiotic regimen. (3) I iliac muscle abscess Is this a current diagnosis for this admission?: Yes Plan: Status post incision and drainage and debridement.. (4) Sepsis Qualifiers: Sepsis type: sepsis due to unspecified organism Qualified Code(s): A41.9 - Sepsis, unspecified organism Is this a current diagnosis for this admission?: Yes Plan: Gram-positive sepsis evidenced by blood culture positive for gram-positive cocci. Identification and sensitivity pattern is pending. (5) Leukocytosis Qualifiers: Leukocytosis type: unspecified Qualified Code(s): D72.829 - Elevated white blood cell count, unspecified Is this a current diagnosis for this admission?: Yes Plan: His white cell counts is trending down from 17-11. - Time Time Spent with patient: 25-34 minutes
[2018-01-26] MEDS: DIPHENHYDRAMINE HCL 50 MG/ML VIAL IV PRN ×3 (11:53→21:33)
[2018-01-26] MEDS ORDERED: IBUPROFEN 800 MG TABLET ONE (17:15)
[2018-01-26] MEDS ORDERED: IBUPROFEN 400 MG TABLET PO ONE (19:15)
[2018-01-26] MEDS: PREGABALIN 75 MG CAPSULE PO SCH (21:33)
[2018-01-26] MEDS: NICOTINE 14 MG/24 HR PATCH.TD24 TD SCH (21:33)
[2018-01-27] MEDS: OXYCODONE-ACETAMINOPHEN 5-325 MG TABLET PO PRN ×2 (02:35→10:24)
[2018-01-27] MEDS: DIAZEPAM 5 MG TABLET PO SCH ×3 (02:36→17:20)
[2018-01-27] MEDS: HYDROMORPHONE HCL INJ/PF 2 MG/ML AMPULE IV PRN ×5 (04:43→23:31)
[2018-01-27] MEDS: DIPHENHYDRAMINE HCL 50 MG/ML VIAL IV PRN (04:46)
[2018-01-27] MEDS: LANSOPRAZOLE 30 MG TAB.RAP.DR PO SCH (04:47)
[2018-01-27] MEDS: HEPARIN SOD (PORCINE) 5,000 UNIT/ML 1 ML SYRINGE SUBCUT SCH ×3 (04:47→21:40)
[2018-01-27] MEDS: CLINDAMYCIN 600 MG/D5W RTU 600 MG/50 ML RTUPB IV SCH (04:48)
[2018-01-27] MEDS: CEFEPIME 2 GM/D5W RTU 2 GM/50 ML RTUPB IV SCH (04:57)
[2018-01-27 05:13] LABS: ABSOLUTE BASOPHILS # (AUTO) 0.1 10^3/uL (0.0-0.2); ABSOLUTE EOSINOPHILS # (AUTO) 0.3 10^3/uL (0.0-0.6); ABSOLUTE MONOCYTES (AUTO) 0.6 10^3/uL (0.1-1.4); ABSOLUTE NEUT (AUTO) 8.6 10^3/uL (1.7-8.2); EOSINOPHILS % (AUTO) 2.6 % (0-6); HEMATOCRIT 28.1 % (37.9-51.0); HEMOGLOBIN 9.6 g/dL (13.5-17.0); LYMPHOCYTES % (AUTO) 9.8 % (13-45); MEAN CORPUSCULAR HEMOGLOBIN 28.3 pg (27.0-33.4); MEAN CORPUSCULAR HGB CONC 34.3 g/dL (32.0-36.0); MEAN CORPUSCULAR VOLUME 83 fl (80-97); MONOCYTES % (AUTO) 5.3 % (3-13); PLATELET COUNT 257 10^3/uL (150-450); RED CELL DISTRIBUTION WIDTH 13.8 % (11.5-14.0); SEGMENTED NEUTROPHILS % (AUTO) 81.3 % (42-78); TOTAL CELLS COUNTED % (AUTO) 100 %; WHITE BLOOD COUNT 10.6 10^3/uL (4.0-10.5)
[2018-01-27 05:32] LABS: ANION GAP 8 (5-19); BLOOD UREA NITROGEN 13 mg/dL (7-20); CALCIUM 7.8 mg/dL (8.4-10.2); CARBON DIOXIDE 28 mmol/L (22-30); CHLORIDE 102 mmol/L (98-107); GLUCOSE 129 mg/dL (75-110); POTASSIUM 4.1 mmol/L (3.6-5.0); SODIUM 137.8 mmol/L (137-145)
[2018-01-27] MEDS: VANCOMYCIN HCL 1,250 MG in DEXTROSE 5%-WATER 250 ML IV SCH (05:54)
[2018-01-27] MEDS: KETOROLAC TROMETHAMINE INJ/PF 30 MG/1 ML SDV IV PRN ×3 (05:55→20:11)
--- NOTE | 2018-01-27 06:59 | PDOC PROGRESS REPORT ---
Subjective Progress Note for:: 01/27/18 Reason For Visit: SACROILIAC JOINT SEPTIC ARTHRITIS,OSTEOMYELITIS OF 32-year-old white male postop day 2 status post I&D of a right sacroiliac abscess. Patient reports somewhat improved pain over the last 24 hours. Cultures are growing gram-positive cocci in clusters both from the blood as well as from the wound. Patient with intermittent low-grade febrile episodes Physical Exam Vital Signs: Temp Pulse Resp BP Pulse Ox 37.2 C 86 20 130/61 H 95 01/27/18 03:40 01/27/18 03:40 01/27/18 03:40 01/27/18 03:40 01/27/18 03:40 Intake & Output 01/25/18 01/26/18 01/27/18 06:59 06:59 06:59 Intake Total 894 70115 4815 Output Total 375 5850 5500 Balance 519 5035 -685 Weight 102.9 kg 105.2 kg 109.9 kg General appearance: PRESENT: mild distress, severe distress Respiratory exam: PRESENT: unlabored Cardiovascular exam: PRESENT: RRR Pulses: PRESENT: +1 pedal pulses bilateral Vascular exam: PRESENT: normal capillary refill Extremities exam: PRESENT: other - Right posterior pelvic incision is well approximated with minimal drainage Neurological exam: PRESENT: alert, awake, oriented to person, oriented to place , oriented to time, oriented to situation. ABSENT: motor sensory deficit Psychiatric exam: PRESENT: agitated Skin exam: PRESENT: dry, intact, warm. ABSENT: cyanosis, rash Results Laboratory Results: 01/27/18 04:35 01/27/18 04:35 01/27/18 01/27/18 04:35 04:35 WBC 10.6 H RBC 3.40 L Hgb 9.6 L Hct 28.1 L MCV 83 MCH 28.3 MCHC 34.3 RDW 13.8 Plt Count 257 Seg Neutrophils % 81.3 H Lymphocytes % 9.8 L Monocytes % 5.3 Eosinophils % 2.6 Basophils % 1.0 Absolute Neutrophils 8.6 H Absolute Lymphocytes 1.0 Absolute Monocytes 0.6 Absolute Eosinophils 0.3 Absolute Basophils 0.1 Sodium 137.8 Potassium 4.1 Chloride 102 Carbon Dioxide 28 Anion Gap 8 BUN 13 Creatinine 0.65 Est GFR ( Amer) > 60 Est GFR (Non-Af Amer) > 60 Glucose 129 H Calcium 7.8 L Impressions: Lumbar Spine MRI 01/24/18 10:48 IMPRESSION: Septic right SI joint with adjacent marrow edema and contrast enhancement 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 4 x 2 cm abscess protruding off the ventral aspect right SI joint deep to the iliacus muscle in the pelvis. Diffuse edema in the iliacus and right paraspinal muscles without other abscess identified at this time. Signal abnormalities worrisome for early septic arthritis in the left SI joint without abscess. No epidural abscess. Findings discussed with the emergency room attending physician. Chest X-Ray 01/24/18 12:34 IMPRESSION: Stable mild cardiomegaly. No acute infiltrates. No pleural effusion. No pneumothorax. Status: Imported from PACS Assessment & Plan - Diagnosis (1) Right and left IS joint septic arthritis Is this a current diagnosis for this admission?: Yes Plan: Adjust antibiotics per microbiology sensitivities when available. Mobilized with physical therapy and weightbearing as tolerated basis. Overhead trapeze to bed which may improve the patient's bed mobility. - Time Time Spent with patient: 15-24 minutes Anticipated discharge: Home with Homehealth Within: Other
[2018-01-27] MEDS: PREGABALIN 75 MG CAPSULE PO SCH ×2 (09:09→21:40)
[2018-01-27] MEDS: OXYCODONE HCL IR 5 MG TABLET PO PRN (10:26)
[2018-01-27] MEDS: FENTANYL 75 MCG/HR PATCH.TD72 TD SCH (11:36)
--- NOTE | 2018-01-27 11:51 | PDOC PROGRESS REPORT ---
Subjective Progress Note for:: 01/27/18 Subjective:: I seen patient resting in bed. He is awake alert and oriented. Still patient complains of some back pain and low-grade intermittent fever. I increased the dose of his fentanyl patch from 50 mics to 75 Kemal, I also added for him ibuprofen 800 mg every 8 hours. Blood culture grew MSSA so I discontinue clindamycin cefepime and vancomycin and switched him to ceftriaxone 2 g IV daily. I requested repeat blood culture and echo to rule out infective endocarditis. Reason For Visit: SACROILIAC JOINT SEPTIC ARTHRITIS,OSTEOMYELITIS OF Physical Exam Vital Signs: Temp Pulse Resp BP Pulse Ox 98.5 F 75 12 113/56 L 94 01/27/18 07:38 01/27/18 07:38 01/27/18 07:38 01/27/18 07:38 01/27/18 07:38 Intake & Output 01/26/18 01/27/18 01/28/18 06:59 06:59 06:59 Intake [place] 26020 4815 Output Total 5850 5500 Balance 5035 -685 Weight 105.2 kg 109.9 kg Results Laboratory Results: 01/27/18 04:35 01/27/18 04:35 01/27/18 01/27/18 04:35 04:35 WBC 10.6 H RBC 3.40 L Hgb 9.6 L Hct 28.1 L MCV 83 MCH 28.3 MCHC 34.3 RDW 13.8 Plt Count 257 Seg Neutrophils % 81.3 H Lymphocytes % 9.8 L Monocytes % 5.3 Eosinophils % 2.6 Basophils % 1.0 Absolute Neutrophils 8.6 H Absolute Lymphocytes 1.0 Absolute Monocytes 0.6 Absolute Eosinophils 0.3 Absolute Basophils 0.1 Sodium 137.8 Potassium 4.1 Chloride 102 Carbon Dioxide 28 Anion Gap 8 BUN 13 Creatinine 0.65 Est GFR ( Amer) > 60 Est GFR (Non-Af Amer) > 60 Glucose 129 H Calcium 7.8 L 01/25/18 09:00 Hip - Right Gram Stain - Final 01/25/18 09:00 Hip - Right Body Fluid Culture - Final Staphylococcus Aureus No Anaerobic Organisms Impressions: Lumbar Spine MRI 01/24/18 10:48 IMPRESSION: Septic right SI joint with adjacent marrow edema and contrast enhancement 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 4 x 2 cm abscess protruding off the ventral aspect right SI joint deep to the iliacus muscle in the pelvis. Diffuse edema in the iliacus and right paraspinal muscles without other abscess identified at this time. Signal abnormalities worrisome for early septic arthritis in the left SI joint without abscess. No epidural abscess. Findings discussed with the emergency room attending physician. Chest X-Ray 01/24/18 12:34 IMPRESSION: Stable mild cardiomegaly. No acute infiltrates. No pleural effusion. No pneumothorax. Assessment & Plan - Diagnosis (1) Right and left IS joint septic arthritis Is this a current diagnosis for this admission?: Yes Plan: Cefepime, vancomycin, and clindamycin discontinued and patient started on ceftriaxone since the blood cultures positive for MSSA which is pansensitive except for clindamycin and erythromycin. (2) Sacral bone osteomyelitis Is this a current diagnosis for this admission?: Yes Plan: As a #1 (3) I iliac muscle abscess Is this a current diagnosis for this admission?: Yes Plan: As a #1 and wound care (4) Sepsis Qualifiers: Sepsis type: sepsis due to unspecified organism Qualified Code(s): A41.9 - Sepsis, unspecified organism Is this a current diagnosis for this admission?: Yes Plan: Sepsis due to an MSSA (5) Leukocytosis Qualifiers: Leukocytosis type: unspecified Qualified Code(s): D72.829 - Elevated white blood cell count, unspecified Is this a current diagnosis for this admission?: Yes Plan: Resolved
[2018-01-27] MEDS: CEFTRIAXONE 2 GM/D5W RTU 2 GM/50 ML RTUPB IV SCH (12:46)
--- NOTE | 2018-01-27 14:29 | RADIOLOGY REPORT (SQ) ---
EXAM DESCRIPTION: PICC INSERTION; FLUORO/CV PLACEMENT; U/S GUIDE FOR VASCULAR ACCESS COMPLETED DATE/TIME: 01/27/2018 2:13 pm REASON FOR STUDY: IV infusion; IV ABX; IV ACCESS COMPARISON: AP chest 01/24/2018 FLUOROSCOPY TIME: 18 seconds 1 ultrasound and 1 fluoroscopic image saved to PACS. TECHNIQUE: Fluoroscopic and ultrasound guided PICC placement. LIMITATIONS: None. PROCEDURE: After written consent and assessment were obtained, the patient was brought into the fluo roscopy room and place supine on the table. Ultrasound evaluation of potential access sites were perf ormed. After successfully identifying a patent left basilic vein, the left arm was prepped and draped in a sterile fashion along with the ultrasound probe. The entry site was anesthetized with 1% lidoca ine. A 21 gauge 7 cm needle was advanced through the skin and into the basilic vein under live ultras ound guidance. An ultrasound image was saved to PACS confirming access site. A .018 guide wire was then inserted through the needle and into the venous system. The needle was the removed and an 11 je de scalpel was used to make a 1cm skin incision. A 5 fr peel-away sheath was advanced over the wire and into the venous system. A measurement was then made using the existing wire and live fluoroscopic guidance. The wire was then removed and the trimmed. The PICC was advanced through the peel-away she ath and into the venous system. The peel-away sheath was removed and the catheter was adhered to the patients arm with a stat lock. The catheter was then aspirated and flushed and a sterile bandage was placed over the access site. A fluoroscopic spot image was saved to PACS confirming the catheter tip within the superior vena cava. IMPRESSION: SUCCESSFUL PLACEMENT OF A 5 FR DUAL LUMEN 38 CM PICC IN THE LEFT BASILIC VEIN. COMMENT: Patient medication list reviewed: Yes- Quality ID# 130:Eligible professional attests to doc umenting in the medical record they obtained, updated, or reviewed the patient's current medications. . Quality ID 145: Final reports for procedures using fluoroscopy that document radiation exposure sree ismael, or exposure time and number of fluorographic images (if radiation exposure indices are not avail able) Quality ID #76: The patient was prepped and draped using maximum sterile barrier technique including cap, mask, sterile gown, sterile gloves, a large sterile sheet, hand hygiene, and 2% Chlorhexidine fo r cutaneous antisepsis. When ultrasound is used, sterile ultrasound techniques are followed requiring sterile gel and sterile probes. TECHNICAL DOCUMENTATION: JOB ID: [id number] [employer]- All Rights Reserved rev-12/09 Reading location - IP/workstation name: [email or web address]
[2018-01-27] MEDS: IBUPROFEN 800 MG TABLET PO PRN ×2 (15:36→23:32)
--- NOTE | 2018-01-27 19:20 | XCELERA REPORT ---
[address] [address] Transthoracic Echocardiogram Report Name: JOEL BENAVIDES Age: 32 yrs Gender: Male : 1985 Patient Status: Inpatient Patient Location: [address] [place], [place] [address] Study Date: 01/27/2018 02:06 PM Procedure: A two-dimensional transthoracic echocardiogram with color flow and Doppler was performed. Study Quality: Technically suboptimal. The study was technically limited with all images being suboptimal in quality. The study was technically difficult with many images being suboptimal in quality. Poor valve interogation and poor endocardial visualisation.Poor doppler interogation. Reason For Study: VEGETATION History: VEGETATION. Ordering Physician: JULY MITCHELL Performed By: Clarice Jones Interpretation Summary No True 2 chamber apical views obtained.Hence cannot comment on the apical and basal anterior ledesma, and the apical and basal inferior ledesma.The mid anterior and the mid inferior and the rest of the ledesma contract normally.No LVH.LVEF is greater than 65%. Probably no stenotic or regurgitant valvular lesions.No gross vegetation seen , but if clinical suspicion for endocarditis is high strongly reommend AUGUSTINE. MMode/2D Measurements & Calculations RVDd: 3.3 cm LVIDd: 4.9 cm FS: 39.4 % Ao root diam: 3.0 cm IVSd: 0.88 cm LVIDs: 3.0 cm EDV(Teich): 112.6 ml Ao root area: 7.3 cm2 LVPWd: 1.0 cm ESV(Teich): 34.1 ml EF(Teich): 69.7 % Doppler Measurements & Calculations MV E max eliazar: MV dec slope: Ao V2 max: LV V1 max P.6 cm/sec 374.6 cm/sec2 161.9 cm/sec 6.1 mmHg MV A max eliazar: MV dec time: Ao max PG: LV V1 max: 101.1 cm/sec 0.25 sec 10.5 mmHg 123.6 cm/sec MV E/A: 0.93 PA V2 max: 116.9 cm/sec PA max P.5 mmHg Left Ventricle No True 2 chamber apical views obtained.Hence cannot comment on the apical and basal anterior ledesma, and the apical and basal inferior ledesma.The mid anterior and the mid inferior and the rest of the ledesma contract normally.No LVH.LVEF is greater than 65%. Probably no stenotic or regurgitant valvular lesions.No gross vegetation seen , but if clinical suspicion for endocarditis is high strongly reommend AUGUSTINE. : JULY MITCHELL > Jayshree Hansen
[2018-01-27] MEDS: NORMAL SALINE 10 ML SDV (SCHEDULED) IV SCH (21:39)
[2018-01-27] MEDS: NICOTINE 14 MG/24 HR PATCH.TD24 TD SCH (21:39)
[2018-01-27] MEDS: DIPHENHYDRAMINE HCL 25 MG CAPSULE PO SCH (21:39)
[2018-01-28] MEDS: DIAZEPAM 5 MG TABLET PO SCH ×3 (02:24→16:43)
[2018-01-28] MEDS: KETOROLAC TROMETHAMINE INJ/PF 30 MG/1 ML SDV IV PRN ×3 (02:24→19:42)
[2018-01-28] MEDS: HEPARIN SOD (PORCINE) 5,000 UNIT/ML 1 ML SYRINGE SUBCUT SCH ×3 (05:23→22:45)
[2018-01-28] MEDS: HYDROMORPHONE HCL INJ/PF 2 MG/ML AMPULE IV PRN ×5 (05:25→22:46)
[2018-01-28] MEDS: LANSOPRAZOLE 30 MG TAB.RAP.DR PO SCH (05:27)
--- NOTE | 2018-01-28 07:24 | PDOC PROGRESS REPORT ---
Subjective Progress Note for:: 01/28/18 Reason For Visit: SACROILIAC JOINT SEPTIC ARTHRITIS,OSTEOMYELITIS OF 32-year-old white male now postop day 3 from an I&D of the right sacroiliac joint and debridement of a right retroperitoneal abscess. Patient very focused on pain medication scheduling and multiple complaints about his care Physical Exam Vital Signs: Temp Pulse Resp BP Pulse Ox 37.3 C 86 16 126/63 H 95 01/28/18 03:10 01/28/18 03:10 01/28/18 03:10 01/28/18 03:10 01/28/18 03:10 Intake & Output 01/27/18 01/28/18 01/29/18 06:59 06:59 06:59 Intake Total 4815 4742 Output Total 5500 3975 Balance -685 767 Weight 109.9 kg 115.2 kg General appearance: PRESENT: mild distress Head exam: PRESENT: normocephalic Respiratory exam: PRESENT: unlabored Cardiovascular exam: PRESENT: RRR Pulses: PRESENT: +1 pedal pulses bilateral Vascular exam: PRESENT: normal capillary refill Extremities exam: PRESENT: other - Right posterior pelvic dressing clean dry and intact Neurological exam: PRESENT: alert, awake, oriented to person, oriented to place , oriented to time, oriented to situation. ABSENT: motor sensory deficit Results Laboratory Results: 01/27/18 04:35 01/27/18 04:35 01/25/18 09:00 Hip - Right Gram Stain - Final 01/25/18 09:00 Hip - Right Body Fluid Culture - Final Staphylococcus Aureus No Anaerobic Organisms Impressions: Lumbar Spine MRI 01/24/18 10:48 IMPRESSION: Septic right SI joint with adjacent marrow edema and contrast enhancement 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 4 x 2 cm abscess protruding off the ventral aspect right SI joint deep to the iliacus muscle in the pelvis. Diffuse edema in the iliacus and right paraspinal muscles without other abscess identified at this time. Signal abnormalities worrisome for early septic arthritis in the left SI joint without abscess. No epidural abscess. Findings discussed with the emergency room attending physician. Chest X-Ray 01/24/18 12:34 IMPRESSION: Stable mild cardiomegaly. No acute infiltrates. No pleural effusion. No pneumothorax. Guidance Fluoroscopy 01/27/18 00:00 IMPRESSION: SUCCESSFUL PLACEMENT OF A 5 FR DUAL LUMEN 38 CM PICC IN THE LEFT BASILIC VEIN. Interventional Vascular Procedure 01/27/18 00:00 IMPRESSION: SUCCESSFUL PLACEMENT OF A 5 FR DUAL LUMEN 38 CM PICC IN THE LEFT BASILIC VEIN. PICC Line Insertion 01/27/18 00:00 IMPRESSION: SUCCESSFUL PLACEMENT OF A 5 FR DUAL LUMEN 38 CM PICC IN THE LEFT BASILIC VEIN. Status: Imported from PACS Assessment & Plan - Diagnosis (1) Right and left IS joint septic arthritis Is this a current diagnosis for this admission?: Yes Plan: Final cultures are growing MSSA and antibiotics have been adjusted to facilitate once a day administration. Patient is complaining of constipation this is been resolved with the nursing staff. Patient will need to increase his functional status prior to consideration of discharge home. - Time Time Spent with patient: 15-24 minutes Anticipated discharge: Home with Homehealth Within: Other
[2018-01-28] MEDS: DOCUSATE SODIUM 100 MG CAPSULE PO SCH ×2 (08:49→16:43)
[2018-01-28] MEDS: IBUPROFEN 800 MG TABLET PO PRN ×2 (08:50→16:43)
[2018-01-28] MEDS: NORMAL SALINE 10 ML SDV (SCHEDULED) IV SCH ×2 (08:51→22:45)
[2018-01-28] MEDS: PREGABALIN 75 MG CAPSULE PO SCH ×2 (08:51→22:44)
[2018-01-28] MEDS ORDERED: FENTANYL 50 MCG/HR PATCH.TD72 TD SCH (10:00)
--- NOTE | 2018-01-28 10:48 | PDOC PROGRESS REPORT ---
Subjective Subjective:: Patient seen and examined at bedside. He is awake alert and oriented. I increased the dose of his fentanyl patch to 75 mcg every 72 hours. Patient also getting hydromorphone every 4 hours as needed. Despite all this patient continued complaining of pain and asking for higher doses and frequent Dilaudid. Today is his third postop day after he had incision and drainage of the right sacroiliac joint and retroperitoneal abscess evacuation. Reason For Visit: SACROILIAC JOINT SEPTIC ARTHRITIS,OSTEOMYELITIS OF Physical Exam Vital Signs: Temp Pulse Resp BP Pulse Ox 97.3 F 95 16 142/72 H 97 01/28/18 07:37 01/28/18 07:37 01/28/18 07:37 01/28/18 07:37 01/28/18 07:37 Intake & Output 01/27/18 01/28/18 01/29/18 06:59 06:59 06:59 Intake Total 4815 4742 Output Total 5500 3975 Balance -685 767 Weight 109.9 kg 115.2 kg General appearance: PRESENT: no acute distress Head exam: PRESENT: atraumatic Eye exam: PRESENT: conjunctiva pink Mouth exam: PRESENT: moist Respiratory exam: PRESENT: clear to auscultation jose. ABSENT: rales, rhonchi, wheezes Cardiovascular exam: PRESENT: RRR. ABSENT: diastolic murmur, rubs, systolic murmur GI/Abdominal exam: PRESENT: normal bowel sounds, soft. ABSENT: distended, guarding, mass, organolmegaly, rebound, tenderness Neurological exam: PRESENT: alert, awake, oriented to time, oriented to situation Results Laboratory Results: 01/27/18 04:35 01/27/18 04:35 01/25/18 09:00 Hip - Right Gram Stain - Final 01/25/18 09:00 Hip - Right Body Fluid Culture - Final Staphylococcus Aureus No Anaerobic Organisms Impressions: Lumbar Spine MRI 01/24/18 10:48 IMPRESSION: Septic right SI joint with adjacent marrow edema and contrast enhancement 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 4 x 2 cm abscess protruding off the ventral aspect right SI joint deep to the iliacus muscle in the pelvis. Diffuse edema in the iliacus and right paraspinal muscles without other abscess identified at this time. Signal abnormalities worrisome for early septic arthritis in the left SI joint without abscess. No epidural abscess. Findings discussed with the emergency room attending physician. Chest X-Ray 01/24/18 12:34 IMPRESSION: Stable mild cardiomegaly. No acute infiltrates. No pleural effusion. No pneumothorax. Guidance Fluoroscopy 01/27/18 00:00 IMPRESSION: SUCCESSFUL PLACEMENT OF A 5 FR DUAL LUMEN 38 CM PICC IN THE LEFT BASILIC VEIN. Interventional Vascular Procedure 01/27/18 00:00 IMPRESSION: SUCCESSFUL PLACEMENT OF A 5 FR DUAL LUMEN 38 CM PICC IN THE LEFT BASILIC VEIN. PICC Line Insertion 01/27/18 00:00 IMPRESSION: SUCCESSFUL PLACEMENT OF A 5 FR DUAL LUMEN 38 CM PICC IN THE LEFT BASILIC VEIN. Assessment & Plan - Diagnosis (1) Right and left IS joint septic arthritis Is this a current diagnosis for this admission?: Yes Plan: Patient has been started on ceftriaxone 2 g IV daily. (2) Sacral bone osteomyelitis Is this a current diagnosis for this admission?: Yes Plan: As a #1 (3) I iliac muscle abscess Is this a current diagnosis for this admission?: Yes Plan: As a #1 and wound care (4) Sepsis Qualifiers: Sepsis type: sepsis due to unspecified organism Qualified Code(s): A41.9 - Sepsis, unspecified organism Is this a current diagnosis for this admission?: Yes Plan: Sepsis due to an MSSA (5) Leukocytosis Qualifiers: Leukocytosis type: unspecified Qualified Code(s): D72.829 - Elevated white blood cell count, unspecified Is this a current diagnosis for this admission?: Yes Plan: Resolved
[2018-01-28] MEDS: CEFTRIAXONE 2 GM/D5W RTU 2 GM/50 ML RTUPB IV SCH (11:45)
[2018-01-28] MEDS: NICOTINE 14 MG/24 HR PATCH.TD24 TD SCH (22:45)
[2018-01-28] MEDS: DIPHENHYDRAMINE HCL 25 MG CAPSULE PO SCH (22:45)
[2018-01-29] MEDS: KETOROLAC TROMETHAMINE INJ/PF 30 MG/1 ML SDV IV PRN ×3 (02:43→18:16)
[2018-01-29] MEDS: DIAZEPAM 5 MG TABLET PO SCH ×3 (02:43→18:16)
[2018-01-29] MEDS: HYDROMORPHONE HCL INJ/PF 2 MG/ML AMPULE IV PRN ×4 (03:41→16:09)
[2018-01-29] MEDS: IBUPROFEN 800 MG TABLET PO PRN ×2 (05:54→15:36)
[2018-01-29] MEDS: LANSOPRAZOLE 30 MG TAB.RAP.DR PO SCH (05:56)
[2018-01-29] MEDS: HEPARIN SOD (PORCINE) 5,000 UNIT/ML 1 ML SYRINGE SUBCUT SCH ×3 (05:56→23:10)
--- NOTE | 2018-01-29 07:40 | PDOC PROGRESS REPORT ---
Subjective Progress Note for:: 01/29/18 Reason For Visit: SACROILIAC JOINT SEPTIC ARTHRITIS,OSTEOMYELITIS OF 32-year-old white male status post debridement of the sacroiliac osteomyelitis and a decompression of a retroperitoneal abscess. Patient has remained afebrile for greater than 36 hours and continues to complain bitterly of right lower extremity pain. Dressing was changed by nursing last night noting a my sanguinous drainage. Physical Exam Vital Signs: Temp Pulse Resp BP Pulse Ox 37.4 C 95 18 126/58 H 95 01/29/18 03:34 01/29/18 03:34 01/29/18 03:34 01/29/18 03:34 01/29/18 03:34 Intake & Output 01/28/18 01/29/18 01/30/18 06:59 06:59 06:59 Intake Total 4742 4214 Output Total 3975 3800 Balance 767 414 Weight 115.2 kg 109.5 kg General appearance: PRESENT: mild distress, severe distress Head exam: PRESENT: normocephalic Respiratory exam: PRESENT: unlabored Cardiovascular exam: PRESENT: RRR Pulses: PRESENT: +1 pedal pulses bilateral Vascular exam: PRESENT: normal capillary refill GI/Abdominal exam: PRESENT: soft Rectal exam: PRESENT: deferred Extremities exam: PRESENT: other - Leg lengths are equal. There is minimal right pedal edema. Distal motor and sensory examination is intact. Pulses are palpable and there is brisk capillary refill. Neurological exam: PRESENT: alert, awake, oriented to person, oriented to place , oriented to time, oriented to situation. ABSENT: motor sensory deficit Psychiatric exam: PRESENT: agitated Skin exam: PRESENT: dry, intact, warm. ABSENT: cyanosis, rash Results Laboratory Results: 01/27/18 04:35 01/27/18 04:35 Impressions: Lumbar Spine MRI 01/24/18 10:48 IMPRESSION: Septic right SI joint with adjacent marrow edema and contrast enhancement 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 4 x 2 cm abscess protruding off the ventral aspect right SI joint deep to the iliacus muscle in the pelvis. Diffuse edema in the iliacus and right paraspinal muscles without other abscess identified at this time. Signal abnormalities worrisome for early septic arthritis in the left SI joint without abscess. No epidural abscess. Findings discussed with the emergency room attending physician. Chest X-Ray 01/24/18 12:34 IMPRESSION: Stable mild cardiomegaly. No acute infiltrates. No pleural effusion. No pneumothorax. Guidance Fluoroscopy 01/27/18 00:00 IMPRESSION: SUCCESSFUL PLACEMENT OF A 5 FR DUAL LUMEN 38 CM PICC IN THE LEFT BASILIC VEIN. Interventional Vascular Procedure 01/27/18 00:00 IMPRESSION: SUCCESSFUL PLACEMENT OF A 5 FR DUAL LUMEN 38 CM PICC IN THE LEFT BASILIC VEIN. PICC Line Insertion 01/27/18 00:00 IMPRESSION: SUCCESSFUL PLACEMENT OF A 5 FR DUAL LUMEN 38 CM PICC IN THE LEFT BASILIC VEIN. Status: Imported from PACS Assessment & Plan - Diagnosis (1) Right and left IS joint septic arthritis Is this a current diagnosis for this admission?: Yes Plan: Patient with limited progress with physical therapy in terms of mobilization. Pain appears to be unrelenting and the patient is quite anxious about his pain medication schedule and and providers potentially changing this. The patient cannot be discharged home at his current functional level a my opinion nor can he be discharged home on his current analgesic medication schedule. I think he is being adequately treated with a surgical decompression and with the IV Rocephin. We should continue on with physical therapy for mobilization. He can change the dressing as needed. I requested a pain management consult to facilitate the transition to an outpatient analgesic regimen - Time Time Spent with patient: 15-24 minutes Anticipated discharge: Home Within: Other
[2018-01-29] MEDS: PREGABALIN 75 MG CAPSULE PO SCH (10:24)
[2018-01-29] MEDS: NORMAL SALINE 10 ML SDV (SCHEDULED) IV SCH ×2 (10:25→23:06)
[2018-01-29] MEDS: DOCUSATE SODIUM 100 MG CAPSULE PO SCH ×2 (10:25→18:16)
--- NOTE | 2018-01-29 10:47 | PDOC PROGRESS REPORT ---
Subjective Progress Note for:: 01/29/18 Subjective:: Patient is resting comfortably. He claims pain on his left side has subsided but still has severe pain on the right side. He has been on Dilaudid and fentanyl patch. Pain management consulted. Reason For Visit: SACROILIAC JOINT SEPTIC ARTHRITIS,OSTEOMYELITIS OF Physical Exam Vital Signs: Temp Pulse Resp BP Pulse Ox 99.5 F 101 H 16 148/61 H 98 01/29/18 07:40 01/29/18 07:40 01/29/18 07:40 01/29/18 07:40 01/29/18 07:40 Intake & Output 01/28/18 01/29/18 01/30/18 06:59 06:59 06:59 Intake Total 4742 4214 Output Total 3975 3800 Balance 767 414 Weight 115.2 kg 109.5 kg General appearance: PRESENT: no acute distress Head exam: PRESENT: atraumatic Eye exam: PRESENT: conjunctiva pink Mouth exam: PRESENT: moist Neck exam: ABSENT: carotid bruit, JVD, lymphadenopathy, thyromegaly Respiratory exam: PRESENT: clear to auscultation jose. ABSENT: rales, rhonchi, wheezes Cardiovascular exam: PRESENT: RRR. ABSENT: diastolic murmur, rubs, systolic murmur GI/Abdominal exam: PRESENT: normal bowel sounds, soft. ABSENT: distended, guarding, mass, organolmegaly, rebound, tenderness Neurological exam: PRESENT: alert, awake, oriented to time, oriented to situation Results Laboratory Results: 01/27/18 04:35 01/27/18 04:35 Impressions: Lumbar Spine MRI 01/24/18 10:48 IMPRESSION: Septic right SI joint with adjacent marrow edema and contrast enhancement 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 4 x 2 cm abscess protruding off the ventral aspect right SI joint deep to the iliacus muscle in the pelvis. Diffuse edema in the iliacus and right paraspinal muscles without other abscess identified at this time. Signal abnormalities worrisome for early septic arthritis in the left SI joint without abscess. No epidural abscess. Findings discussed with the emergency room attending physician. Chest X-Ray 01/24/18 12:34 IMPRESSION: Stable mild cardiomegaly. No acute infiltrates. No pleural effusion. No pneumothorax. Guidance Fluoroscopy 01/27/18 00:00 IMPRESSION: SUCCESSFUL PLACEMENT OF A 5 FR DUAL LUMEN 38 CM PICC IN THE LEFT BASILIC VEIN. Interventional Vascular Procedure 01/27/18 00:00 IMPRESSION: SUCCESSFUL PLACEMENT OF A 5 FR DUAL LUMEN 38 CM PICC IN THE LEFT BASILIC VEIN. PICC Line Insertion 01/27/18 00:00 IMPRESSION: SUCCESSFUL PLACEMENT OF A 5 FR DUAL LUMEN 38 CM PICC IN THE LEFT BASILIC VEIN. Assessment & Plan - Diagnosis (1) Right and left IS joint septic arthritis Is this a current diagnosis for this admission?: Yes Plan: Patient has been started on ceftriaxone 2 g IV daily. (2) Sacral bone osteomyelitis Is this a current diagnosis for this admission?: Yes Plan: As a #1 (3) I iliac muscle abscess Is this a current diagnosis for this admission?: Yes Plan: As a #1 and wound care (4) Sepsis Qualifiers: Sepsis type: sepsis due to unspecified organism Qualified Code(s): A41.9 - Sepsis, unspecified organism Is this a current diagnosis for this admission?: Yes Plan: Sepsis due to an MSSA (5) Leukocytosis Qualifiers: Leukocytosis type: unspecified Qualified Code(s): D72.829 - Elevated white blood cell count, unspecified Is this a current diagnosis for this admission?: Yes Plan: Resolved
[2018-01-29] MEDS: CEFTRIAXONE 2 GM/D5W RTU 2 GM/50 ML RTUPB IV SCH (11:55)
[2018-01-29] MEDS ORDERED: PREGABALIN 100 MG CAPSULE PO SCH (18:00)
[2018-01-29] MEDS: OXYCODONE HCL IR 5 MG TABLET PO PRN (20:40)
[2018-01-29] MEDS: PREGABALIN 100 MG CAPSULE PO SCH (23:03)
[2018-01-29] MEDS: DIPHENHYDRAMINE HCL 25 MG CAPSULE PO SCH (23:03)
[2018-01-29] MEDS: ACETAMINOPHEN 325 MG TABLET PO PRN (23:04)
[2018-01-29] MEDS: NICOTINE 14 MG/24 HR PATCH.TD24 TD SCH (23:05)
[2018-01-30] MEDS: KETOROLAC TROMETHAMINE INJ/PF 30 MG/1 ML SDV IV PRN ×4 (00:11→19:25)
[2018-01-30] MEDS: DIAZEPAM 5 MG TABLET PO SCH ×3 (02:39→19:17)
[2018-01-30] MEDS: OXYCODONE HCL IR 5 MG TABLET PO PRN ×5 (02:39→20:30)
[2018-01-30] MEDS: IBUPROFEN 800 MG TABLET PO PRN ×2 (05:42→15:55)
[2018-01-30] MEDS: PREGABALIN 100 MG CAPSULE PO SCH ×3 (05:48→22:23)
[2018-01-30] MEDS: LANSOPRAZOLE 30 MG TAB.RAP.DR PO SCH (05:49)
[2018-01-30] MEDS: HEPARIN SOD (PORCINE) 5,000 UNIT/ML 1 ML SYRINGE SUBCUT SCH ×3 (05:59→22:25)
[2018-01-30] MEDS: FENTANYL 75 MCG/HR PATCH.TD72 TD SCH (10:47)
[2018-01-30] MEDS: DOCUSATE SODIUM 100 MG CAPSULE PO SCH ×2 (10:49→19:17)
[2018-01-30] MEDS: NORMAL SALINE 10 ML SDV (SCHEDULED) IV SCH ×2 (10:50→22:25)
[2018-01-30] MEDS: CEFTRIAXONE 2 GM/D5W RTU 2 GM/50 ML RTUPB IV SCH (12:01)
[2018-01-30] MEDS: ACETAMINOPHEN 325 MG TABLET PO PRN ×2 (12:14→20:31)
--- NOTE | 2018-01-30 12:54 | PDOC PROGRESS REPORT ---
Subjective Progress Note for:: 01/30/18 Subjective:: This is a 32 years old male patient admitted with chief complaint of fever back and leg pain. At that admission his white cell count was 17,000. His MRI lumbosacral region revealed bilateral sacroiliac joint septic arthritis and adjustment sacral bone osteomyelitis and retroperitoneal abscess. On the second day of his admission patient was taken to the OR by Dr. Weaver orthopedic surgeon who performed I&D, total debridement and abscess evacuation. Blood culture was taken and patient started on cefepime and vancomycin. As his blood culture grew MSSA his antibiotic regimens D escalated to ceftriaxone 2 g IV daily. Echocardiogram was done and 2 there is no vegetation. Subsequent blood cultures are negative. Patient requires 8 weeks IV antibiotics. Reportedly patient has history of substance abuse and he continuously requesting for pain medication also to increase the frequency of the dosage of his opiates. Pain management consulted so that handling the pain medication issue. Reason For Visit: SACROILIAC JOINT SEPTIC ARTHRITIS,OSTEOMYELITIS OF Physical Exam Vital Signs: Temp Pulse Resp BP Pulse Ox 98.7 F 85 16 126/56 H 95 01/30/18 08:02 01/30/18 08:02 01/30/18 08:02 01/30/18 08:02 01/30/18 08:02 Intake & Output 01/29/18 01/30/18 01/31/18 06:59 06:59 06:59 Intake Total 4214 3746 Output Total 3800 3800 Balance 414 -54 Weight 109.5 kg 110.6 kg Results Laboratory Results: 01/27/18 04:35 01/27/18 04:35 Impressions: Lumbar Spine MRI 01/24/18 10:48 IMPRESSION: Septic right SI joint with adjacent marrow edema and contrast enhancement 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 4 x 2 cm abscess protruding off the ventral aspect right SI joint deep to the iliacus muscle in the pelvis. Diffuse edema in the iliacus and right paraspinal muscles without other abscess identified at this time. Signal abnormalities worrisome for early septic arthritis in the left SI joint without abscess. No epidural abscess. Findings discussed with the emergency room attending physician. Chest X-Ray 01/24/18 12:34 IMPRESSION: Stable mild cardiomegaly. No acute infiltrates. No pleural effusion. No pneumothorax. Guidance Fluoroscopy 01/27/18 00:00 IMPRESSION: SUCCESSFUL PLACEMENT OF A 5 FR DUAL LUMEN 38 CM PICC IN THE LEFT BASILIC VEIN. Interventional Vascular Procedure 01/27/18 00:00 IMPRESSION: SUCCESSFUL PLACEMENT OF A 5 FR DUAL LUMEN 38 CM PICC IN THE LEFT BASILIC VEIN. PICC Line Insertion 01/27/18 00:00 IMPRESSION: SUCCESSFUL PLACEMENT OF A 5 FR DUAL LUMEN 38 CM PICC IN THE LEFT BASILIC VEIN. Assessment & Plan - Diagnosis (1) Right and left IS joint septic arthritis Is this a current diagnosis for this admission?: Yes Plan: Patient has been started on ceftriaxone 2 g IV daily. (2) Sacral bone osteomyelitis Is this a current diagnosis for this admission?: Yes Plan: As a #1 (3) I iliac muscle abscess Is this a current diagnosis for this admission?: Yes Plan: As a #1 and wound care (4) Sepsis Qualifiers: Sepsis type: sepsis due to unspecified organism Qualified Code(s): A41.9 - Sepsis, unspecified organism Is this a current diagnosis for this admission?: Yes Plan: Sepsis due to an MSSA (5) Leukocytosis Qualifiers: Leukocytosis type: unspecified Qualified Code(s): D72.829 - Elevated white blood cell count, unspecified Is this a current diagnosis for this admission?: Yes - Time Time Spent with patient: 25-34 minutes
[2018-01-30] MEDS: DIPHENHYDRAMINE HCL 25 MG CAPSULE PO SCH (22:23)
[2018-01-30] MEDS: NICOTINE 14 MG/24 HR PATCH.TD24 TD SCH (22:24)
[2018-01-31] MEDS: HYDROMORPHONE HCL 2 MG TABLET PO SCH ×5 (00:41→23:17)
[2018-01-31] MEDS: OXYCODONE HCL IR 5 MG TABLET PO PRN ×4 (01:48→20:31)
[2018-01-31] MEDS: DIAZEPAM 5 MG TABLET PO SCH ×3 (01:49→17:54)
[2018-01-31] MEDS: IBUPROFEN 800 MG TABLET PO PRN ×3 (01:50→20:30)
[2018-01-31 04:37] LABS: HEPATITIS A AB IGM Negative (Negative); HEPATITIS B CORE AB IGM Negative (Negative); HEPATITS B SURFACE ANTIGEN Negative (Negative)
[2018-01-31] MEDS: PREGABALIN 100 MG CAPSULE PO SCH ×3 (06:09→21:52)
[2018-01-31] MEDS: LANSOPRAZOLE 30 MG TAB.RAP.DR PO SCH (06:09)
[2018-01-31] MEDS: HEPARIN SOD (PORCINE) 5,000 UNIT/ML 1 ML SYRINGE SUBCUT SCH ×3 (06:10→21:52)
--- NOTE | 2018-01-31 06:52 | PDOC PROGRESS REPORT ---
Subjective Progress Note for:: 01/31/18 Reason For Visit: SACROILIAC JOINT SEPTIC ARTHRITIS,OSTEOMYELITIS OF 32-year-old white male with an MSSA sacroiliac osteomyelitis and retroperitoneal abscess. Patient's been seen by pain management and medication have been rearranged and seemed to be satisfactory. The patient was able to sleep last night. He was also able to ambulate out in the hallway yesterday. Physical Exam Vital Signs: Temp Pulse Resp BP Pulse Ox 36.7 C 82 16 108/53 L 95 01/31/18 03:49 01/31/18 03:49 01/31/18 03:49 01/31/18 03:49 01/31/18 03:49 Intake & Output 01/29/18 01/30/18 01/31/18 06:59 06:59 06:59 Intake Total 4214 3746 3900 Output Total 3800 3800 3700 Balance 414 -54 200 Weight 109.5 kg 110.6 kg 106.7 kg General appearance: PRESENT: no acute distress, mild distress Head exam: PRESENT: normocephalic Respiratory exam: PRESENT: unlabored Cardiovascular exam: PRESENT: RRR Pulses: PRESENT: +1 pedal pulses bilateral Vascular exam: PRESENT: normal capillary refill GI/Abdominal exam: PRESENT: soft Rectal exam: PRESENT: deferred Extremities exam: PRESENT: other - Hip dressing clean dry and intact. Leg lengths are equal. Distal neurovascular examination is intact. Neurological exam: PRESENT: alert, awake, oriented to person, oriented to place , oriented to time, oriented to situation. ABSENT: motor sensory deficit Psychiatric exam: PRESENT: appropriate affect, normal mood. ABSENT: homicidal ideation, suicidal ideation Skin exam: PRESENT: dry, intact, warm. ABSENT: cyanosis, rash Results Laboratory Results: 01/27/18 04:35 01/27/18 04:35 Impressions: Lumbar Spine MRI 01/24/18 10:48 IMPRESSION: Septic right SI joint with adjacent marrow edema and contrast enhancement 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 4 x 2 cm abscess protruding off the ventral aspect right SI joint deep to the iliacus muscle in the pelvis. Diffuse edema in the iliacus and right paraspinal muscles without other abscess identified at this time. Signal abnormalities worrisome for early septic arthritis in the left SI joint without abscess. No epidural abscess. Findings discussed with the emergency room attending physician. Chest X-Ray 01/24/18 12:34 IMPRESSION: Stable mild cardiomegaly. No acute infiltrates. No pleural effusion. No pneumothorax. Guidance Fluoroscopy 01/27/18 00:00 IMPRESSION: SUCCESSFUL PLACEMENT OF A 5 FR DUAL LUMEN 38 CM PICC IN THE LEFT BASILIC VEIN. Interventional Vascular Procedure 01/27/18 00:00 IMPRESSION: SUCCESSFUL PLACEMENT OF A 5 FR DUAL LUMEN 38 CM PICC IN THE LEFT BASILIC VEIN. PICC Line Insertion 01/27/18 00:00 IMPRESSION: SUCCESSFUL PLACEMENT OF A 5 FR DUAL LUMEN 38 CM PICC IN THE LEFT BASILIC VEIN. Status: Imported from PACS Assessment & Plan - Diagnosis (1) Right and left IS joint septic arthritis Is this a current diagnosis for this admission?: Yes Plan: Patient status post surgical debridement of both the osteomyelitis as well as the abscess. He is now improving. Tentative plan will be for discharge home with return on a daily basis for IV Rocephin - Time Time Spent with patient: 15-24 minutes Anticipated discharge: Home Within: Other
[2018-01-31] MEDS: KETOROLAC TROMETHAMINE INJ/PF 30 MG/1 ML SDV IV PRN ×2 (07:53→15:06)
[2018-01-31] MEDS: NORMAL SALINE 10 ML SDV (AFTER EACH USE) IV PRN ×2 (07:56→15:07)
[2018-01-31 08:30] LABS: HEPATITIS C VIRUS ANTIBODY >11.0 s/co ratio (0.0-0.9)
[2018-01-31] MEDS: ACETAMINOPHEN 325 MG TABLET PO PRN ×2 (08:47→17:17)
[2018-01-31] MEDS: DOCUSATE SODIUM 100 MG CAPSULE PO SCH ×2 (10:55→17:54)
[2018-01-31] MEDS: NORMAL SALINE 10 ML SDV (SCHEDULED) IV SCH ×2 (10:58→21:54)
[2018-01-31] MEDS: CEFTRIAXONE 2 GM/D5W RTU 2 GM/50 ML RTUPB IV SCH (11:32)
--- NOTE | 2018-01-31 18:08 | PDOC PROGRESS REPORT ---
Subjective Progress Note for:: 01/31/18 Subjective:: The patient is complaining of left sided pleuritic chest pain. He states that it has been present since he was diagnosed with Pleuricy a couple of months ago. Reason For Visit: SACROILIAC JOINT SEPTIC ARTHRITIS,OSTEOMYELITIS OF Physical Exam Vital Signs: Temp Pulse Resp BP Pulse Ox 98.1 F 95 16 125/59 L 97 01/31/18 16:25 01/31/18 16:25 01/31/18 16:25 01/31/18 16:25 01/31/18 16:25 Intake & Output 01/30/18 01/31/18 02/01/18 06:59 06:59 06:59 Intake Total 3746 3900 Output Total 3800 3700 Balance -54 200 Weight 110.6 kg 106.7 kg General appearance: PRESENT: no acute distress, cooperative, obese Head exam: PRESENT: atraumatic, normocephalic Eye exam: PRESENT: EOMI, PERRLA Neck exam: ABSENT: carotid bruit, JVD, lymphadenopathy, meningismus, tenderness , thyromegaly, tracheal deviation Respiratory exam: PRESENT: unlabored, other - No rub, no increased work of breathing, no tactile fremitus.. ABSENT: accessory muscle use, prolonged expiratory phas, rales, rhonchi, wheezes Cardiovascular exam: PRESENT: RRR, other - No murmurs, ectopy, or gallups. No lateral PMI. No thrills. Pulses: PRESENT: normal carotid pulses, normal femoral pulses, normal dorsalis pedis pul Vascular exam: PRESENT: normal capillary refill GI/Abdominal exam: PRESENT: diminished bowel sounds, soft. ABSENT: guarding, hernia, mass, organolmegaly, tenderness Rectal exam: PRESENT: deferred Extremities exam: PRESENT: other - No cyanosis, clubbing, or edema/ Musculoskeletal exam: PRESENT: other - Range of motion and ambulatino is greatly restricted due to pain from sacroiliitis and osteomyelitis. Neurological exam: PRESENT: alert, awake, oriented to person, oriented to place , oriented to time, oriented to situation, CN II-XII grossly intact. ABSENT: motor sensory deficit Psychiatric exam: PRESENT: appropriate affect, normal mood Skin exam: PRESENT: dry, intact, warm Results Laboratory Results: 01/27/18 04:35 01/27/18 04:35 Impressions: Lumbar Spine MRI 01/24/18 10:48 IMPRESSION: Septic right SI joint with adjacent marrow edema and contrast enhancement 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 4 x 2 cm abscess protruding off the ventral aspect right SI joint deep to the iliacus muscle in the pelvis. Diffuse edema in the iliacus and right paraspinal muscles without other abscess identified at this time. Signal abnormalities worrisome for early septic arthritis in the left SI joint without abscess. No epidural abscess. Findings discussed with the emergency room attending physician. Chest X-Ray 01/24/18 12:34 IMPRESSION: Stable mild cardiomegaly. No acute infiltrates. No pleural effusion. No pneumothorax. Guidance Fluoroscopy 01/27/18 00:00 IMPRESSION: SUCCESSFUL PLACEMENT OF A 5 FR DUAL LUMEN 38 CM PICC IN THE LEFT BASILIC VEIN. Interventional Vascular Procedure 01/27/18 00:00 IMPRESSION: SUCCESSFUL PLACEMENT OF A 5 FR DUAL LUMEN 38 CM PICC IN THE LEFT BASILIC VEIN. PICC Line Insertion 01/27/18 00:00 IMPRESSION: SUCCESSFUL PLACEMENT OF A 5 FR DUAL LUMEN 38 CM PICC IN THE LEFT BASILIC VEIN. Assessment & Plan - Diagnosis (1) I iliac muscle abscess Is this a current diagnosis for this admission?: Yes Plan: The patient's family has called and reported that they have found needles and drug paraphinalia in the patient's bedroom. They have expressed concern over discharge of the patient with a PICC in place. I will try to determine if the patient's veins will allow repeated IV placement as outpatient in the infusion center to allow the patient to receive his 8 weeks of IV ceftriaxone. (2) Leukocytosis Qualifiers: Leukocytosis type: leukemoid reaction Qualified Code(s): D72.823 - Leukemoid reaction Is this a current diagnosis for this admission?: Yes Plan: Improving slowly (3) Right and left IS joint septic arthritis Is this a current diagnosis for this admission?: Yes Plan: 8 weeks IV Ceftriaxone (4) Sacral bone osteomyelitis Is this a current diagnosis for this admission?: Yes Plan: 8 weeks IV ceftriaxone (5) Sepsis Qualifiers: Sepsis type: methicillin susceptible Staphylococcus aureus Qualified Code(s ): A41.01 - Sepsis due to Methicillin susceptible Staphylococcus aureus Is this a current diagnosis for this admission?: Yes Plan: Sepsis is resolved. The patient will continue to require IV Ceftriaxone for the next 8 weeks. Echocardiogram has been performed and is negative for vegetation. - Time Time Spent with patient: 25-34 minutes Medications reviewed and adjusted accordingly: Yes Anticipated discharge: Home Within: within 48 hours
[2018-01-31] MEDS: DIPHENHYDRAMINE HCL 25 MG CAPSULE PO SCH (21:52)
[2018-01-31] MEDS: NICOTINE 14 MG/24 HR PATCH.TD24 TD SCH (21:52)
[2018-02-01] MEDS: DIAZEPAM 5 MG TABLET PO SCH ×3 (02:08→18:12)
[2018-02-01] MEDS: OXYCODONE HCL IR 5 MG TABLET PO PRN ×4 (02:08→20:08)
[2018-02-01] MEDS: ACETAMINOPHEN 325 MG TABLET PO PRN ×2 (04:07→22:37)
[2018-02-01] MEDS: KETOROLAC TROMETHAMINE INJ/PF 30 MG/1 ML SDV IV PRN ×4 (04:08→23:53)
[2018-02-01 04:39] LABS: ABSOLUTE BASOPHILS # (AUTO) 0.1 10^3/uL (0.0-0.2); ABSOLUTE EOSINOPHILS # (AUTO) 0.2 10^3/uL (0.0-0.6); ABSOLUTE LYMPHOCYTES (AUTO) 1.1 10^3/uL (0.5-4.7); ABSOLUTE MONOCYTES (AUTO) 0.5 10^3/uL (0.1-1.4); ABSOLUTE NEUT (AUTO) 6.6 10^3/uL (1.7-8.2); BASOPHILS % (AUTO) 0.7 % (0-2); EOSINOPHILS % (AUTO) 2.1 % (0-6); HEMATOCRIT 28.3 % (37.9-51.0); HEMOGLOBIN 9.6 g/dL (13.5-17.0); LYMPHOCYTES % (AUTO) 12.9 % (13-45); MEAN CORPUSCULAR HEMOGLOBIN 28.1 pg (27.0-33.4); MEAN CORPUSCULAR HGB CONC 34.1 g/dL (32.0-36.0); MEAN CORPUSCULAR VOLUME 83 fl (80-97); MONOCYTES % (AUTO) 6.3 % (3-13); PLATELET COUNT 604 10^3/uL (150-450); RED BLOOD COUNT 3.42 10^6/uL (4.35-5.55); RED CELL DISTRIBUTION WIDTH 13.6 % (11.5-14.0); TOTAL CELLS COUNTED % (AUTO) 100 %; WHITE BLOOD COUNT 8.5 10^3/uL (4.0-10.5)
[2018-02-01 05:04] LABS: ANION GAP 9 (5-19); BLOOD UREA NITROGEN 18 mg/dL (7-20); CALCIUM 8.7 mg/dL (8.4-10.2); CARBON DIOXIDE 30 mmol/L (22-30); CHLORIDE 98 mmol/L (98-107); GLUCOSE 115 mg/dL (75-110); POTASSIUM 5.5 mmol/L (3.6-5.0); SODIUM 137.1 mmol/L (137-145)
[2018-02-01] MEDS: HYDROMORPHONE HCL 2 MG TABLET PO SCH ×4 (05:23→23:51)
[2018-02-01] MEDS: PREGABALIN 100 MG CAPSULE PO SCH ×3 (05:24→22:38)
[2018-02-01] MEDS: LANSOPRAZOLE 30 MG TAB.RAP.DR PO SCH (05:25)
[2018-02-01] MEDS: HEPARIN SOD (PORCINE) 5,000 UNIT/ML 1 ML SYRINGE SUBCUT SCH ×3 (05:26→22:38)
[2018-02-01] MEDS: IBUPROFEN 800 MG TABLET PO PRN ×2 (08:05→16:27)
[2018-02-01] MEDS: DOCUSATE SODIUM 100 MG CAPSULE PO SCH ×2 (09:26→18:12)
[2018-02-01] MEDS: NORMAL SALINE 10 ML SDV (SCHEDULED) IV SCH ×2 (09:28→22:38)
[2018-02-01] MEDS: CEFTRIAXONE 2 GM/D5W RTU 2 GM/50 ML RTUPB IV SCH (12:01)
--- NOTE | 2018-02-01 17:40 | PDOC PROGRESS REPORT ---
Subjective Progress Note for:: 02/01/18 Subjective:: The patient is complaining of right posterior calf and heel pain. Reason For Visit: SACROILIAC JOINT SEPTIC ARTHRITIS,OSTEOMYELITIS OF Physical Exam Vital Signs: Temp Pulse Resp BP Pulse Ox 98.5 F 85 18 116/46 L 95 02/01/18 11:06 02/01/18 14:00 02/01/18 11:06 02/01/18 11:06 02/01/18 11:06 Intake & Output 01/31/18 02/01/18 02/02/18 06:59 06:59 06:59 Intake Total 3900 5948 1500 Output Total 3700 5475 1200 Balance 200 473 300 Weight 106.7 kg 107.3 kg General appearance: PRESENT: no acute distress, morbidly obese Respiratory exam: PRESENT: unlabored. ABSENT: accessory muscle use, chest wall tenderness, crackles, decreased breath sounds, rales, rhonchi, wheezes Cardiovascular exam: PRESENT: RRR, +S2, other - No lateral PMI. No thrills.. ABSENT: gallop, rubs, systolic murmur Pulses: PRESENT: normal femoral pulses, normal dorsalis pedis pul Vascular exam: PRESENT: normal capillary refill GI/Abdominal exam: PRESENT: other - The abdomen is morbidly obese. Bowel sounds are distant. The abdomen is soft and non-tender. I am unable to evaluate the abdomen for organomegaly, masses, or hernias. Extremities exam: PRESENT: calf tenderness - right, other - Minimal swelling of right lower extremity in comparison with left.. ABSENT: +1 edema Musculoskeletal exam: PRESENT: full ROM, tenderness - right calf. ABSENT: deformity Neurological exam: PRESENT: alert, awake, oriented to person, oriented to place , oriented to time, oriented to situation, CN II-XII grossly intact Psychiatric exam: PRESENT: appropriate affect, normal mood Skin exam: PRESENT: dry, intact, warm Results Laboratory Results: 02/01/18 04:13 02/01/18 04:13 02/01/18 02/01/18 04:13 04:13 WBC 8.5 RBC 3.42 L Hgb 9.6 L Hct 28.3 L MCV 83 MCH 28.1 MCHC 34.1 RDW 13.6 Plt Count 604 H Seg Neutrophils % 78.0 Lymphocytes % 12.9 L Monocytes % 6.3 Eosinophils % 2.1 Basophils % 0.7 Absolute Neutrophils 6.6 Absolute Lymphocytes 1.1 Absolute Monocytes 0.5 Absolute Eosinophils 0.2 Absolute Basophils 0.1 Sodium 137.1 Potassium 5.5 H Chloride 98 Carbon Dioxide 30 Anion Gap 9 BUN 18 Creatinine 0.78 Est GFR ( Amer) > 60 Est GFR (Non-Af Amer) > 60 Glucose 115 H Calcium 8.7 01/27/18 09:35 Blood Blood Culture - Final NO GROWTH IN 5 DAYS 01/27/18 08:45 Blood Blood Culture - Final NO GROWTH IN 5 DAYS Impressions: Lumbar Spine MRI 01/24/18 10:48 IMPRESSION: Septic right SI joint with adjacent marrow edema and contrast enhancement 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 4 x 2 cm abscess protruding off the ventral aspect right SI joint deep to the iliacus muscle in the pelvis. Diffuse edema in the iliacus and right paraspinal muscles without other abscess identified at this time. Signal abnormalities worrisome for early septic arthritis in the left SI joint without abscess. No epidural abscess. Findings discussed with the emergency room attending physician. Chest X-Ray 01/24/18 12:34 IMPRESSION: Stable mild cardiomegaly. No acute infiltrates. No pleural effusion. No pneumothorax. Guidance Fluoroscopy 01/27/18 00:00 IMPRESSION: SUCCESSFUL PLACEMENT OF A 5 FR DUAL LUMEN 38 CM PICC IN THE LEFT BASILIC VEIN. Interventional Vascular Procedure 01/27/18 00:00 IMPRESSION: SUCCESSFUL PLACEMENT OF A 5 FR DUAL LUMEN 38 CM PICC IN THE LEFT BASILIC VEIN. PICC Line Insertion 01/27/18 00:00 IMPRESSION: SUCCESSFUL PLACEMENT OF A 5 FR DUAL LUMEN 38 CM PICC IN THE LEFT BASILIC VEIN. Assessment & Plan - Diagnosis (1) I iliac muscle abscess Is this a current diagnosis for this admission?: Yes Plan: The patient's family has called and reported that they have found needles and drug paraphinalia in the patient's bedroom. They have expressed concern over discharge of the patient with a PICC in place. I will try to determine if the patient's veins will allow repeated IV placement as outpatient in the infusion center to allow the patient to receive his 8 weeks of IV ceftriaxone.I have discussed this with nursing today. They will attempt to place a peripheral IV. (2) Leukocytosis Qualifiers: Leukocytosis type: leukemoid reaction Qualified Code(s): D72.823 - Leukemoid reaction Is this a current diagnosis for this admission?: Yes Plan: Improving slowly (3) Right and left IS joint septic arthritis Is this a current diagnosis for this admission?: Yes Plan: 8 weeks IV Ceftriaxone (4) Sacral bone osteomyelitis Is this a current diagnosis for this admission?: Yes Plan: 8 weeks IV ceftriaxone (5) Sepsis Qualifiers: Sepsis type: methicillin susceptible Staphylococcus aureus Qualified Code(s ): A41.01 - Sepsis due to Methicillin susceptible Staphylococcus aureus Is this a current diagnosis for this admission?: Yes Plan: Sepsis is resolved. The patient will continue to require IV Ceftriaxone for the next 8 weeks. Echocardiogram has been performed and is negative for vegetation. (6) DVT (deep venous thrombosis) Qualifiers: DVT location: lower extremity Chronicity: acute Laterality: right Is this a current diagnosis for this admission?: Yes Plan: Will check doppler of the right lower extremity to rule out DVT. - Time Time Spent with patient: 25-34 minutes Anticipated discharge: Home
[2018-02-01] MEDS: DIPHENHYDRAMINE HCL 25 MG CAPSULE PO SCH (22:37)
[2018-02-01] MEDS: NICOTINE 14 MG/24 HR PATCH.TD24 TD SCH (22:38)
[2018-02-01] MEDS: NORMAL SALINE 10 ML SDV (AFTER EACH USE) IV PRN (23:53)
[2018-02-02] MEDS: DIAZEPAM 5 MG TABLET PO SCH ×2 (02:16→17:47)
[2018-02-02] MEDS: OXYCODONE HCL IR 5 MG TABLET PO PRN ×4 (02:16→20:37)
[2018-02-02] MEDS: NORMAL SALINE 10 ML SDV (AFTER EACH USE) IV PRN (06:23)
[2018-02-02] MEDS: IBUPROFEN 800 MG TABLET PO PRN (06:23)
[2018-02-02] MEDS: LANSOPRAZOLE 30 MG TAB.RAP.DR PO SCH (06:23)
[2018-02-02] MEDS: HYDROMORPHONE HCL 2 MG TABLET PO SCH ×3 (06:23→17:48)
[2018-02-02] MEDS: PREGABALIN 100 MG CAPSULE PO SCH ×3 (06:23→22:37)
[2018-02-02] MEDS: HEPARIN SOD (PORCINE) 5,000 UNIT/ML 1 ML SYRINGE SUBCUT SCH ×3 (06:24→22:38)
--- NOTE | 2018-02-02 06:51 | PDOC PROGRESS REPORT ---
Subjective Progress Note for:: 02/02/18 Reason For Visit: SACROILIAC JOINT SEPTIC ARTHRITIS,OSTEOMYELITIS OF 32-year-old white male postop day 7 from an I&D of the right sacroiliac joint and decompression of a retroperitoneal abscess. Patient continues to have intermittent fevers, last night to 38.4. He complains bitterly of right lower extremity pain at this point in the right anterolateral thigh. Physical Exam Vital Signs: Temp Pulse Resp BP Pulse Ox 37.1 C 83 16 110/47 L 92 02/02/18 06:05 02/02/18 06:05 02/02/18 06:05 02/02/18 06:05 02/02/18 06:05 Intake & Output 01/31/18 02/01/18 02/02/18 06:59 06:59 06:59 Intake Total 3900 5948 5150 Output Total 3700 5475 3850 Balance 040 748 0935 Weight 106.7 kg 107.3 kg 110.2 kg General appearance: PRESENT: mild distress, severe distress Respiratory exam: PRESENT: unlabored Cardiovascular exam: PRESENT: RRR Pulses: PRESENT: +1 pedal pulses bilateral GI/Abdominal exam: PRESENT: soft Extremities exam: PRESENT: other - Right posterior pelvic dressing was changed last night. Currently there is a small area the size of a quarter with fresh appears to be bloody drainage. There does not appear to be any undue induration about the pelvis nor erythema. There is global tenderness to palpation. Leg lengths are equal. Distal neurovascular examination is intact. Neurological exam: PRESENT: alert, awake, oriented to person, oriented to place , oriented to time, oriented to situation. ABSENT: motor sensory deficit Psychiatric exam: PRESENT: agitated, anxious Skin exam: PRESENT: dry, intact, warm. ABSENT: cyanosis, rash Results Laboratory Results: 02/01/18 04:13 02/01/18 04:13 01/27/18 09:35 Blood Blood Culture - Final NO GROWTH IN 5 DAYS 01/27/18 08:45 Blood Blood Culture - Final NO GROWTH IN 5 DAYS Impressions: Lumbar Spine MRI 01/24/18 10:48 IMPRESSION: Septic right SI joint with adjacent marrow edema and contrast enhancement 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 4 x 2 cm abscess protruding off the ventral aspect right SI joint deep to the iliacus muscle in the pelvis. Diffuse edema in the iliacus and right paraspinal muscles without other abscess identified at this time. Signal abnormalities worrisome for early septic arthritis in the left SI joint without abscess. No epidural abscess. Findings discussed with the emergency room attending physician. Chest X-Ray 01/24/18 12:34 IMPRESSION: Stable mild cardiomegaly. No acute infiltrates. No pleural effusion. No pneumothorax. Guidance Fluoroscopy 01/27/18 00:00 IMPRESSION: SUCCESSFUL PLACEMENT OF A 5 FR DUAL LUMEN 38 CM PICC IN THE LEFT BASILIC VEIN. Interventional Vascular Procedure 01/27/18 00:00 IMPRESSION: SUCCESSFUL PLACEMENT OF A 5 FR DUAL LUMEN 38 CM PICC IN THE LEFT BASILIC VEIN. PICC Line Insertion 01/27/18 00:00 IMPRESSION: SUCCESSFUL PLACEMENT OF A 5 FR DUAL LUMEN 38 CM PICC IN THE LEFT BASILIC VEIN. Status: Imported from PACS Assessment & Plan - Diagnosis (1) Right and left IS joint septic arthritis Is this a current diagnosis for this admission?: Yes Plan: 32-year-old white male a full week status post I&D of her right SI osteomyelitis and decompression of retroperitoneal abscess. The patient's continued complaints of pain are probably due to both inflammation from the abscess and the subsequent surgery as well as a tolerance for narcotics because of 3 morbid usage. At this point I think the wound is healing uneventfully and there is not a significant neurologic deficit. The patient was able ambulate 60 feet yesterday. The continued intermittent febrile episodes are of concern. - Time Time Spent with patient: 15-24 minutes Anticipated discharge: Other Within: Other
[2018-02-02 07:36] LABS: ANION GAP 8 (5-19); BLOOD UREA NITROGEN 18 mg/dL (7-20); CARBON DIOXIDE 31 mmol/L (22-30); CHLORIDE 100 mmol/L (98-107); GLUCOSE 91 mg/dL (75-110); POTASSIUM 5.7 mmol/L (3.6-5.0); SODIUM 138.7 mmol/L (137-145)
[2018-02-02] MEDS: KETOROLAC TROMETHAMINE INJ/PF 30 MG/1 ML SDV IV PRN ×3 (08:33→20:41)
[2018-02-02] MEDS: DOCUSATE SODIUM 100 MG CAPSULE PO SCH ×2 (10:46→17:47)
[2018-02-02] MEDS ORDERED: DIAZEPAM 5 MG TABLET PO ONE (11:00)
[2018-02-02] MEDS: NORMAL SALINE 10 ML SDV (SCHEDULED) IV SCH (11:04)
[2018-02-02] MEDS: CEFTRIAXONE 2 GM/D5W RTU 2 GM/50 ML RTUPB IV SCH (11:53)
--- NOTE | 2018-02-02 12:04 | XCELERA REPORT ---
[address] [address] Lower Extremity Venous Evaluation Name: JOEL BENAVIDES Age: 32 yrs Gender: Male : 1985 Patient Status: Inpatient Patient Location: [facility]^A Study Date: 02/02/2018 09:11 AM Procedure: Color flow and duplex imaging of the veins of the right lower extremity as well as the left Common Femoral vein. Reason For Study: pain right calf Ordering Physician: NIKOLAY DOE Performed By: Florian León Right Sided Venous Evaluation Normal vessel filling wall to wall, compression and augmentation as well as Colour flow down to the infrageniculate veins. Left Sided Venous Evaluation The left common femoral vein is fully compressible. Spontaneous and phasic flow is present in the left common femoral vein. Interpretation Summary No duplex evidence of DVT or obstruction in the right lower extremity nor in the left Common Femoral vein. : NIKOLAY DOE > Cedric Trinidad
[2018-02-02] MEDS: ACETAMINOPHEN 325 MG TABLET PO PRN ×2 (15:14→22:38)
--- NOTE | 2018-02-02 17:08 | PDOC PROGRESS REPORT ---
Subjective Progress Note for:: 02/02/18 Subjective:: The patient continues to complain of pain that they state is not covered by current regimen. He is extremely upset that PICC will be removed. Reason For Visit: SACROILIAC JOINT SEPTIC ARTHRITIS,OSTEOMYELITIS OF Physical Exam Vital Signs: Temp Pulse Resp BP Pulse Ox 100.3 F 103 H 19 119/52 L 95 02/02/18 15:49 02/02/18 15:49 02/02/18 15:49 02/02/18 15:49 02/02/18 15:49 Intake & Output 02/01/18 02/02/18 02/03/18 06:59 06:59 06:59 Intake Total 5948 5229 1090 Output Total 5475 3850 1000 Balance 473 1379 90 Weight 107.3 kg 110.2 kg General appearance: PRESENT: obese, well-developed, other - The patient is very angry and agitated. After I left the room he was screaming obscenities. He and his mother have expressed concern that he is continuing to have fevers. Specifically he is having one fever each evening.. ABSENT: cooperative Neck exam: ABSENT: carotid bruit, JVD, lymphadenopathy, thyromegaly Respiratory exam: PRESENT: other - No increased work of breathing. No wheezes, rales, or rhonchi.. ABSENT: rales, rhonchi, wheezes Cardiovascular exam: PRESENT: RRR. ABSENT: diastolic murmur, rubs, systolic murmur Pulses: PRESENT: normal dorsalis pedis pul Vascular exam: PRESENT: normal capillary refill GI/Abdominal exam: PRESENT: normal bowel sounds, soft. ABSENT: distended, guarding, mass, organolmegaly, rebound, tenderness Rectal exam: PRESENT: deferred Extremities exam: PRESENT: full ROM. ABSENT: calf tenderness, clubbing, pedal edema Neurological exam: PRESENT: alert, awake, oriented to person, oriented to place , oriented to time, oriented to situation, CN II-XII grossly intact. ABSENT: motor sensory deficit Psychiatric exam: PRESENT: agitated. ABSENT: homicidal ideation, suicidal ideation Skin exam: PRESENT: dry, intact, warm. ABSENT: cyanosis, rash Results Laboratory Results: 02/01/18 04:13 02/02/18 06:30 02/02/18 06:30 Sodium 138.7 Potassium 5.7 H Chloride 100 Carbon Dioxide 31 H Anion Gap 8 BUN 18 Creatinine 0.87 Est GFR ( Amer) > 60 Est GFR (Non-Af Amer) > 60 Glucose 91 Calcium 9.0 Magnesium 1.9 Impressions: Lumbar Spine MRI 01/24/18 10:48 IMPRESSION: Septic right SI joint with adjacent marrow edema and contrast enhancement 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 4 x 2 cm abscess protruding off the ventral aspect right SI joint deep to the iliacus muscle in the pelvis. Diffuse edema in the iliacus and right paraspinal muscles without other abscess identified at this time. Signal abnormalities worrisome for early septic arthritis in the left SI joint without abscess. No epidural abscess. Findings discussed with the emergency room attending physician. Chest X-Ray 01/24/18 12:34 IMPRESSION: Stable mild cardiomegaly. No acute infiltrates. No pleural effusion. No pneumothorax. Guidance Fluoroscopy 01/27/18 00:00 IMPRESSION: SUCCESSFUL PLACEMENT OF A 5 FR DUAL LUMEN 38 CM PICC IN THE LEFT BASILIC VEIN. Interventional Vascular Procedure 01/27/18 00:00 IMPRESSION: SUCCESSFUL PLACEMENT OF A 5 FR DUAL LUMEN 38 CM PICC IN THE LEFT BASILIC VEIN. PICC Line Insertion 01/27/18 00:00 IMPRESSION: SUCCESSFUL PLACEMENT OF A 5 FR DUAL LUMEN 38 CM PICC IN THE LEFT BASILIC VEIN. Assessment & Plan - Diagnosis (1) I iliac muscle abscess Is this a current diagnosis for this admission?: Yes Plan: The patient will require 8 weeks of IV ceftriaxone. Although the patient states that it has been "years" since his used IV drugs, nursing has received a call from family stating that they have found drug paraphernalia and needles in the area where he resides. I have discussed the patient with nursing who has been successful in placing a peripheral IV in the patient and feels that the patient will be able to have serial peripheral IV's placed over the course of the coming weeks in order for him to receive his antibiotics from the infusion center. The PICC has been removed. The patient is very upset about this. As the patient is continuing to have fevers, I will repeat CT of the abdomen and pelvis to look for any cause of continued fevers. (2) Leukocytosis Qualifiers: Leukocytosis type: leukemoid reaction Qualified Code(s): D72.823 - Leukemoid reaction Is this a current diagnosis for this admission?: Yes (3) Right and left IS joint septic arthritis Is this a current diagnosis for this admission?: Yes Plan: The patient will require 8 weeks of IV ceftriaxone. Although the patient states that it has been "years" since his used IV drugs, nursing has received a call from family stating that they have found drug paraphernalia and needles in the area where he resides. I have discussed the patient with nursing who has been successful in placing a peripheral IV in the patient and feels that the patient will be able to have serial peripheral IV's placed over the course of the coming weeks in order for him to receive his antibiotics from the infusion center. The PICC has been removed. The patient is very upset about this. As the patient is continuing to have fevers, I will repeat CT of the abdomen and pelvis to look for any cause of continued fevers. (4) Sacral bone osteomyelitis Is this a current diagnosis for this admission?: Yes Plan: The patient will require 8 weeks of IV ceftriaxone. Although the patient states that it has been "years" since his used IV drugs, nursing has received a call from family stating that they have found drug paraphernalia and needles in the area where he resides. I have discussed the patient with nursing who has been successful in placing a peripheral IV in the patient and feels that the patient will be able to have serial peripheral IV's placed over the course of the coming weeks in order for him to receive his antibiotics from the infusion center. The PICC has been removed. The patient is very upset about this. As the patient is continuing to have fevers, I will repeat CT of the abdomen and pelvis to look for any cause of continued fevers. (5) Sepsis Qualifiers: Sepsis type: methicillin susceptible Staphylococcus aureus Qualified Code(s ): A41.01 - Sepsis due to Methicillin susceptible Staphylococcus aureus Is this a current diagnosis for this admission?: Yes Plan: Sepsis is resolved. The patient will continue to require IV Ceftriaxone for the next 8 weeks. Echocardiogram has been performed and is negative for vegetation. (6) DVT (deep venous thrombosis) Qualifiers: DVT location: lower extremity Chronicity: acute Laterality: right Is this a current diagnosis for this admission?: No Plan: Ruled out with normal doppler. (7) Fever Qualifiers: Fever type: unspecified Qualified Code(s): R50.9 - Fever, unspecified Is this a current diagnosis for this admission?: Yes Plan: Possibly due to residual linflammation and infection due to osteomyelitis and abscesses that have been drained. Also possibly due to drug fever. Out of an excess of caution and due to the concerns of the patient and his mother I will repeat a CT of the patient's abdomen and pelvis to rule out any new source of fever. - Time Time Spent with patient: 35 or more minutes Medications reviewed and adjusted accordingly: Yes Anticipated discharge: Home
[2018-02-02] MEDS: DIPHENHYDRAMINE HCL 25 MG CAPSULE PO SCH (22:37)
[2018-02-02] MEDS: NICOTINE 14 MG/24 HR PATCH.TD24 TD SCH (22:37)
[2018-02-03] MEDS: HYDROMORPHONE HCL 2 MG TABLET PO SCH ×5 (01:02→23:50)
[2018-02-03] MEDS: DIAZEPAM 5 MG TABLET PO SCH ×3 (02:06→17:47)
[2018-02-03] MEDS: PREGABALIN 100 MG CAPSULE PO SCH (05:21)
[2018-02-03] MEDS: LANSOPRAZOLE 30 MG TAB.RAP.DR PO SCH (05:21)
[2018-02-03] MEDS: HEPARIN SOD (PORCINE) 5,000 UNIT/ML 1 ML SYRINGE SUBCUT SCH ×3 (05:22→21:43)
[2018-02-03] MEDS: OXYCODONE HCL IR 5 MG TABLET PO PRN ×4 (05:27→19:46)
[2018-02-03] MEDS: KETOROLAC TROMETHAMINE INJ/PF 30 MG/1 ML SDV IV PRN ×3 (05:28→17:47)
[2018-02-03] MEDS: ACETAMINOPHEN 325 MG TABLET PO PRN ×2 (05:28→19:47)
[2018-02-03 06:40] LABS: ABSOLUTE BASOPHILS # (AUTO) 0.1 10^3/uL (0.0-0.2); ABSOLUTE EOSINOPHILS # (AUTO) 0.2 10^3/uL (0.0-0.6); ABSOLUTE LYMPHOCYTES (AUTO) 1.1 10^3/uL (0.5-4.7); ABSOLUTE MONOCYTES (AUTO) 0.6 10^3/uL (0.1-1.4); ABSOLUTE NEUT (AUTO) 5.5 10^3/uL (1.7-8.2); BASOPHILS % (AUTO) 1.3 % (0-2); EOSINOPHILS % (AUTO) 2.3 % (0-6); HEMOGLOBIN 9.6 g/dL (13.5-17.0); LYMPHOCYTES % (AUTO) 14.4 % (13-45); MEAN CORPUSCULAR HEMOGLOBIN 28.9 pg (27.0-33.4); MEAN CORPUSCULAR HGB CONC 35.7 g/dL (32.0-36.0); MEAN CORPUSCULAR VOLUME 81 fl (80-97); MONOCYTES % (AUTO) 7.7 % (3-13); PLATELET COUNT 699 10^3/uL (150-450); RED BLOOD COUNT 3.33 10^6/uL (4.35-5.55); RED CELL DISTRIBUTION WIDTH 13.5 % (11.5-14.0); SEGMENTED NEUTROPHILS % (AUTO) 74.3 % (42-78); TOTAL CELLS COUNTED % (AUTO) 100 %; WHITE BLOOD COUNT 7.4 10^3/uL (4.0-10.5)
[2018-02-03 07:04] LABS: ANION GAP 9 (5-19); BLOOD UREA NITROGEN 21 mg/dL (7-20); CARBON DIOXIDE 31 mmol/L (22-30); CHLORIDE 97 mmol/L (98-107); GLUCOSE 95 mg/dL (75-110); POTASSIUM 5.3 mmol/L (3.6-5.0); SODIUM 137.4 mmol/L (137-145)
--- NOTE | 2018-02-03 07:35 | RADIOLOGY REPORT (SQ) ---
EXAM DESCRIPTION: CT ABD/PELVIS WITH IV ORAL COMPLETED DATE/TIME: 02/02/2018 9:11 pm REASON FOR STUDY: known sacroilitis and osteo, but pt cont fevers COMPARISON: None. TECHNIQUE: CT scan of the abdomen and pelvis performed using helical scanning technique with dynamic intravenous contrast injection. With oral contrast. Images reviewed with lung, soft tissue, and bon e windows. Reconstructed coronal and sagittal MPR images reviewed. Delayed images for evaluation of t he urinary system also acquired. All images stored on PACS. All CT scanners at this facility use dose modulation, iterative reconstruction, and/or weight based d osing when appropriate to reduce radiation dose to as low as reasonably achievable (ALARA). [facility]: Dose Right [facility]: CareDose [facility]: Dose Right [facility]: Teradose 4D [facility]: Inkshares CONTRAST TYPE AND DOSE: contrast/concentration: Isovue 370.00 mg/ml; Total Contrast Delivered: 100.0 ml; Total Saline Delivered: 48.0 ml RENAL FUNCTION: None required. The patient is less than 50 years old. RADIATION DOSE: CT Rad equipment meets quality standard of care and radiation dose reduction techniq ues were employed. CTDIvol: 16.8 - 19.7 mGy. DLP: 2100 mGy-cm.. LIMITATIONS: None. FINDINGS: LOWER CHEST: Minimal basilar atelectasis and pleural reaction. LIVER: Normal size. No masses. No dilated ducts. SPLEEN: Normal size. No focal lesions. PANCREAS: No masses. No significant calcifications. No adjacent inflammation or peripancreatic fluid collections. Pancreatic duct not dilated. GALLBLADDER: No identified stones by CT criteria. No inflammatory changes to suggest cholecystitis. ADRENAL GLANDS: No significant masses or asymmetry. RIGHT KIDNEY AND URETER: No solid masses. No significant calcifications. No hydronephrosis or hyd roureter. LEFT KIDNEY AND URETER: No solid masses. No significant calcifications. No hydronephrosis or hydr oureter. AORTA AND VESSELS: No aneurysm. No dissection. Renal arteries, SMA, celiac without stenosis. RETROPERITONEUM: No retroperitoneal adenopathy, hemorrhage or masses. BOWEL AND PERITONEAL CAVITY: No masses or inflammatory changes. No free fluid or peritoneal masses. APPENDIX: Normal. PELVIS: No mass. No free fluid. Normal bladder. ABDOMINAL WALL: No masses. No hernias. BONES: Lytic changes of the right iliac wing with apparent antibiotic beads. OTHER: There is soft tissue density along the right sacrum and iliac wing without a discrete abscess. There is some gas in the soft tissues as well as along the iliac wing likely related to procedure. IMPRESSION: Presumed osteomyelitis of the right iliac wing. Adjacent soft tissue density but withou t a discrete abscess. No intraabdominal finding. TECHNICAL DOCUMENTATION: JOB ID: [id number] Quality ID # [id number]: Final reports with documentation of one or more dose reduction techniques (e.g., Au tomated exposure control, adjustment of the mA and/or kV according to patient size, use of iterative reconstruction technique) 2010 [employer]- All Rights Reserved Reading location - IP/workstation name: [email or web address]
[2018-02-03] MEDS: DOCUSATE SODIUM 100 MG CAPSULE PO SCH ×2 (09:08→17:46)
[2018-02-03] MEDS: CEFTRIAXONE 2 GM/D5W RTU 2 GM/50 ML RTUPB IV SCH (11:38)
[2018-02-03] MEDS ORDERED: PREGABALIN 75 MG CAPSULE PO ONE (14:30)
--- NOTE | 2018-02-03 15:33 | RADIOLOGY REPORT (SQ) ---
EXAM DESCRIPTION: FEMUR RIGHT COMPLETED DATE/TIME: 02/03/2018 3:25 pm REASON FOR STUDY: pain COMPARISON: None. NUMBER OF VIEWS: Two views. TECHNIQUE: Two radiographic images acquired of the right femur to include hip and knee in at least o ne projection. LIMITATIONS: None. FINDINGS: MINERALIZATION: Normal. BONES: No acute fracture. No worrisome bone lesions. SOFT TISSUES: No obvious swelling or foreign body. OTHER: No other significant finding. IMPRESSION: NEGATIVE STUDY OF THE RIGHT FEMUR. NO RADIOGRAPHIC EVIDENCE OF ACUTE INJURY. TECHNICAL DOCUMENTATION: JOB ID: [id number] [employer]- All Rights Reserved Reading location - IP/workstation name: [email or web address]
--- NOTE | 2018-02-03 15:34 | RADIOLOGY REPORT (SQ) ---
EXAM DESCRIPTION: TIBIA FIBULA RIGHT COMPLETED DATE/TIME: 02/03/2018 3:25 pm REASON FOR STUDY: pain COMPARISON: None. NUMBER OF VIEWS: Two views. TECHNIQUE: Two radiographic images acquired of the right tibia and fibula to include the knee and an kle in at least one projection. LIMITATIONS: None. FINDINGS: MINERALIZATION: Normal. BONES: No acute fracture or dislocation. No worrisome bone lesions. SOFT TISSUES: No obvious swelling or foreign body. OTHER: No other significant finding. IMPRESSION: NEGATIVE STUDY OF THE RIGHT TIBIA AND FIBULA. NO RADIOGRAPHIC EVIDENCE OF ACUTE INJURY. TECHNICAL DOCUMENTATION: JOB ID: [id number] [employer]- All Rights Reserved Reading location - IP/workstation name: [email or web address]
--- NOTE | 2018-02-03 15:35 | RADIOLOGY REPORT (SQ) ---
EXAM DESCRIPTION: FOOT RIGHT 2 VIEWS COMPLETED DATE/TIME: 02/03/2018 3:25 pm REASON FOR STUDY: pain COMPARISON: None. NUMBER OF VIEWS: Two views. TECHNIQUE: AP and lateral radiographic images acquired of the right foot. LIMITATIONS: None. FINDINGS: MINERALIZATION: Normal. BONES: No acute fracture or dislocation. No worrisome bone lesions. JOINTS: No effusions. SOFT TISSUES: No soft tissue swelling. No foreign body. OTHER: No other significant finding. IMPRESSION: NEGATIVE STUDY OF THE RIGHT FOOT. NO RADIOGRAPHIC EVIDENCE OF ACUTE INJURY. TECHNICAL DOCUMENTATION: JOB ID: [id number] [employer]- All Rights Reserved Reading location - IP/workstation name: [email or web address]
--- NOTE | 2018-02-03 16:18 | PDOC PROGRESS REPORT ---
Subjective Subjective:: The patient continues to complain of pain extending from his low back and incision sites down his right lower extremity. He complains bitterly that the current pain regimen is not adequate. Reason For Visit: SACROILIAC JOINT SEPTIC ARTHRITIS,OSTEOMYELITIS OF Physical Exam Vital Signs: Temp Pulse Resp BP Pulse Ox 100.6 F H 103 H 16 157/86 H 99 02/03/18 11:39 02/03/18 14:00 02/03/18 11:39 02/03/18 11:39 02/03/18 11:39 Intake & Output 02/02/18 02/03/18 02/04/18 06:59 06:59 06:59 Intake Total 5263 4073 736 Output Total 3850 9185 500 Balance 1379 -1202 236 Weight 110.2 kg 105.8 kg General appearance: PRESENT: no acute distress, well-developed, well-nourished Neck exam: ABSENT: carotid bruit, JVD, lymphadenopathy, thyromegaly Respiratory exam: PRESENT: other - There is no increased work of breathing. No wheezes, rales, or rhonchi. No tactile fremitus.. ABSENT: rales, rhonchi, wheezes Cardiovascular exam: PRESENT: RRR. ABSENT: diastolic murmur, rubs, systolic murmur Pulses: PRESENT: normal dorsalis pedis pul Vascular exam: PRESENT: normal capillary refill GI/Abdominal exam: PRESENT: normal bowel sounds, soft. ABSENT: distended, guarding, mass, organolmegaly, rebound, tenderness Rectal exam: PRESENT: deferred Extremities exam: PRESENT: calf tenderness, tenderness. ABSENT: clubbing, pedal edema Neurological exam: PRESENT: alert, awake, oriented to person, oriented to place , oriented to time, oriented to situation, CN II-XII grossly intact. ABSENT: motor sensory deficit Psychiatric exam: PRESENT: appropriate affect, normal mood. ABSENT: homicidal ideation, suicidal ideation Skin exam: PRESENT: dry, intact, warm. ABSENT: cyanosis, rash Results Laboratory Results: 02/03/18 06:27 02/03/18 06:27 02/03/18 02/03/18 02/03/18 06:27 06:27 13:32 WBC 7.4 RBC 3.33 L Hgb 9.6 L Hct 27.0 L MCV 81 MCH 28.9 MCHC 35.7 RDW 13.5 Plt Count 699 H Seg Neutrophils % 74.3 Lymphocytes % 14.4 Monocytes % 7.7 Eosinophils % 2.3 Basophils % 1.3 Absolute Neutrophils 5.5 Absolute Lymphocytes 1.1 Absolute Monocytes 0.6 Absolute Eosinophils 0.2 Absolute Basophils 0.1 Sodium 137.4 Potassium 5.3 H Chloride 97 L Carbon Dioxide 31 H Anion Gap 9 BUN 21 H Creatinine 0.91 Est GFR ( Amer) > 60 Est GFR (Non-Af Amer) > 60 Glucose 95 Calcium 9.0 Magnesium 1.9 C-Reactive Protein 61.4 H Impressions: Lumbar Spine MRI 01/24/18 10:48 IMPRESSION: Septic right SI joint with adjacent marrow edema and contrast enhancement 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 4 x 2 cm abscess protruding off the ventral aspect right SI joint deep to the iliacus muscle in the pelvis. Diffuse edema in the iliacus and right paraspinal muscles without other abscess identified at this time. Signal abnormalities worrisome for early septic arthritis in the left SI joint without abscess. No epidural abscess. Findings discussed with the emergency room attending physician. Chest X-Ray 01/24/18 12:34 IMPRESSION: Stable mild cardiomegaly. No acute infiltrates. No pleural effusion. No pneumothorax. Guidance Fluoroscopy 01/27/18 00:00 IMPRESSION: SUCCESSFUL PLACEMENT OF A 5 FR DUAL LUMEN 38 CM PICC IN THE LEFT BASILIC VEIN. Interventional Vascular Procedure 01/27/18 00:00 IMPRESSION: SUCCESSFUL PLACEMENT OF A 5 FR DUAL LUMEN 38 CM PICC IN THE LEFT BASILIC VEIN. PICC Line Insertion 01/27/18 00:00 IMPRESSION: SUCCESSFUL PLACEMENT OF A 5 FR DUAL LUMEN 38 CM PICC IN THE LEFT BASILIC VEIN. Abdomen/Pelvis CT 02/02/18 00:00 IMPRESSION: Presumed osteomyelitis of the right iliac wing. Adjacent soft tissue density but without a discrete abscess. No intraabdominal finding. Femur X-Ray 02/03/18 00:00 IMPRESSION: NEGATIVE STUDY OF THE RIGHT FEMUR. NO RADIOGRAPHIC EVIDENCE OF ACUTE INJURY. Foot X-Ray 02/03/18 00:00 IMPRESSION: NEGATIVE STUDY OF THE RIGHT FOOT. NO RADIOGRAPHIC EVIDENCE OF ACUTE INJURY. Tibia/Fibula X-Ray 02/03/18 00:00 IMPRESSION: NEGATIVE STUDY OF THE RIGHT TIBIA AND FIBULA. NO RADIOGRAPHIC EVIDENCE OF ACUTE INJURY. Assessment & Plan - Diagnosis (1) I iliac muscle abscess Is this a current diagnosis for this admission?: Yes (2) Leukocytosis Qualifiers: Leukocytosis type: leukemoid reaction Qualified Code(s): D72.823 - Leukemoid reaction Is this a current diagnosis for this admission?: Yes (3) Right and left IS joint septic arthritis Is this a current diagnosis for this admission?: Yes (4) Sacral bone osteomyelitis Is this a current diagnosis for this admission?: Yes (5) Sepsis Qualifiers: Sepsis type: methicillin susceptible Staphylococcus aureus Qualified Code(s ): A41.01 - Sepsis due to Methicillin susceptible Staphylococcus aureus Is this a current diagnosis for this admission?: Yes (6) DVT (deep venous thrombosis) Qualifiers: DVT location: lower extremity Chronicity: acute Laterality: right Is this a current diagnosis for this admission?: No (7) Fever Qualifiers: Fever type: unspecified Qualified Code(s): R50.9 - Fever, unspecified Is this a current diagnosis for this admission?: Yes
[2018-02-03] MEDS: CLONIDINE HCL 0.1 MG TABLET PO SCH ×2 (17:47→23:51)
[2018-02-03] MEDS: NICOTINE 14 MG/24 HR PATCH.TD24 TD SCH (21:43)
[2018-02-03] MEDS: DIPHENHYDRAMINE HCL 25 MG CAPSULE PO SCH (21:43)
[2018-02-03] MEDS: PREGABALIN 75 MG CAPSULE PO SCH (21:43)
[2018-02-04] MEDS: DIAZEPAM 5 MG TABLET PO SCH ×3 (01:15→17:39)
[2018-02-04] MEDS: OXYCODONE HCL IR 5 MG TABLET PO PRN ×4 (01:18→19:47)
[2018-02-04] MEDS: CLONIDINE HCL 0.1 MG TABLET PO SCH ×3 (05:43→17:39)
[2018-02-04] MEDS: PREGABALIN 75 MG CAPSULE PO SCH ×3 (05:43→22:01)
[2018-02-04] MEDS: HYDROMORPHONE HCL 2 MG TABLET PO SCH ×3 (05:44→17:40)
[2018-02-04] MEDS: LANSOPRAZOLE 30 MG TAB.RAP.DR PO SCH (05:44)
[2018-02-04] MEDS: HEPARIN SOD (PORCINE) 5,000 UNIT/ML 1 ML SYRINGE SUBCUT SCH ×3 (05:46→22:02)
[2018-02-04 06:37] LABS: ABSOLUTE BASOPHILS # (AUTO) 0.1 10^3/uL (0.0-0.2); ABSOLUTE EOSINOPHILS # (AUTO) 0.2 10^3/uL (0.0-0.6); ABSOLUTE LYMPHOCYTES (AUTO) 1.2 10^3/uL (0.5-4.7); ABSOLUTE MONOCYTES (AUTO) 0.5 10^3/uL (0.1-1.4); EOSINOPHILS % (AUTO) 2.7 % (0-6); HEMOGLOBIN 9.2 g/dL (13.5-17.0); LYMPHOCYTES % (AUTO) 20.7 % (13-45); MEAN CORPUSCULAR HEMOGLOBIN 28.2 pg (27.0-33.4); MEAN CORPUSCULAR VOLUME 83 fl (80-97); MONOCYTES % (AUTO) 8.4 % (3-13); PLATELET COUNT 494 10^3/uL (150-450); RED BLOOD COUNT 3.26 10^6/uL (4.35-5.55); RED CELL DISTRIBUTION WIDTH 13.2 % (11.5-14.0); SEGMENTED NEUTROPHILS % (AUTO) 67.2 % (42-78); TOTAL CELLS COUNTED % (AUTO) 100 %
[2018-02-04 06:50] LABS: ANION GAP 9 (5-19); BLOOD UREA NITROGEN 26 mg/dL (7-20); CALCIUM 9.1 mg/dL (8.4-10.2); CARBON DIOXIDE 29 mmol/L (22-30); CHLORIDE 99 mmol/L (98-107); GLUCOSE 112 mg/dL (75-110); POTASSIUM 5.2 mmol/L (3.6-5.0); SODIUM 137.4 mmol/L (137-145)
--- NOTE | 2018-02-04 09:05 | RADIOLOGY REPORT (SQ) ---
EXAM DESCRIPTION: CHEST 2 VIEWS COMPLETED DATE/TIME: 02/04/2018 8:34 am REASON FOR STUDY: fevers COMPARISON: 11/10/2017 EXAM PARAMETERS: NUMBER OF VIEWS: two views TECHNIQUE: Digital Frontal and Lateral radiographic views of the chest acquired. RADIATION DOSE: NA LIMITATIONS: none FINDINGS: LUNGS AND PLEURA: No opacities, masses or pneumothorax. No pleural effusion. MEDIASTINUM AND HILAR STRUCTURES: No masses or contour abnormalities. HEART AND VASCULAR STRUCTURES: Heart normal size. No evidence for failure. BONES: No acute findings. HARDWARE: None in the chest. OTHER: No other significant finding. IMPRESSION: NO ACUTE RADIOGRAPHIC FINDING IN THE CHEST. TECHNICAL DOCUMENTATION: JOB ID: [id number] [employer]- All Rights Reserved Reading location - IP/workstation name: [email or web address]
[2018-02-04] MEDS: DOCUSATE SODIUM 100 MG CAPSULE PO SCH ×2 (09:17→17:39)
[2018-02-04] MEDS: ACETAMINOPHEN 325 MG TABLET PO PRN ×2 (09:18→17:38)
--- NOTE | 2018-02-04 10:47 | PDOC PROGRESS REPORT ---
Subjective Progress Note for:: 02/04/18 Subjective:: Patient continues to complain of pain along with occasional fevers. But does note his ambulation progress is slowly improving. Currently requiring large amount of pain medication. Major complaint of pain is radiation from his hip down into his foot. Notes some tingling occasionally. Was able to walk 60 feet in physical therapy. Reason For Visit: SACROILIAC JOINT SEPTIC ARTHRITIS,OSTEOMYELITIS OF Physical Exam Vital Signs: Temp Pulse Resp BP Pulse Ox 99.0 F 95 16 129/71 H 100 02/04/18 07:35 02/04/18 07:35 02/04/18 07:35 02/04/18 07:35 02/04/18 07:35 Intake & Output 02/03/18 02/04/18 02/05/18 06:59 06:59 06:59 Intake Total 4073 3604 Output Total 5275 2600 Balance -1202 1004 Weight 105.8 kg 105.7 kg Musculoskeletal exam: PRESENT: other - Right hip: Dressing with serosanguineous drainage. No active purulence. Minimal erythema. Tenderness along the surgical site. Intact sensation to light touch throughout the right lower extremity. AT/gastroc EHL 5/5. Cap refill less than 2 seconds. Pain with straight leg raise on the right. No pain with knee range of motion or ankle range of motion. No evidence of knee effusion or right ankle effusion. Results Laboratory Results: 02/04/18 05:40 02/04/18 05:40 02/03/18 02/04/18 02/04/18 13:32 05:40 05:40 WBC 6.0 RBC 3.26 L Hgb 9.2 L Hct 27.0 L MCV 83 MCH 28.2 MCHC 34.0 RDW 13.2 Plt Count 494 H Seg Neutrophils % 67.2 Lymphocytes % 20.7 Monocytes % 8.4 Eosinophils % 2.7 Basophils % 1.0 Absolute Neutrophils 4.0 Absolute Lymphocytes 1.2 Absolute Monocytes 0.5 Absolute Eosinophils 0.2 Absolute Basophils 0.1 Sodium 137.4 Potassium 5.2 H Chloride 99 Carbon Dioxide 29 Anion Gap 9 BUN 26 H Creatinine 1.05 Est GFR ( Amer) > 60 Est GFR (Non-Af Amer) > 60 Glucose 112 H Calcium 9.1 C-Reactive Protein 61.4 H Impressions: Lumbar Spine MRI 01/24/18 10:48 IMPRESSION: Septic right SI joint with adjacent marrow edema and contrast enhancement 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 4 x 2 cm abscess protruding off the ventral aspect right SI joint deep to the iliacus muscle in the pelvis. Diffuse edema in the iliacus and right paraspinal muscles without other abscess identified at this time. Signal abnormalities worrisome for early septic arthritis in the left SI joint without abscess. No epidural abscess. Findings discussed with the emergency room attending physician. Guidance Fluoroscopy 01/27/18 00:00 IMPRESSION: SUCCESSFUL PLACEMENT OF A 5 FR DUAL LUMEN 38 CM PICC IN THE LEFT BASILIC VEIN. Interventional Vascular Procedure 01/27/18 00:00 IMPRESSION: SUCCESSFUL PLACEMENT OF A 5 FR DUAL LUMEN 38 CM PICC IN THE LEFT BASILIC VEIN. PICC Line Insertion 01/27/18 00:00 IMPRESSION: SUCCESSFUL PLACEMENT OF A 5 FR DUAL LUMEN 38 CM PICC IN THE LEFT BASILIC VEIN. Abdomen/Pelvis CT 02/02/18 00:00 IMPRESSION: Presumed osteomyelitis of the right iliac wing. Adjacent soft tissue density but without a discrete abscess. No intraabdominal finding. Femur X-Ray 02/03/18 00:00 IMPRESSION: NEGATIVE STUDY OF THE RIGHT FEMUR. NO RADIOGRAPHIC EVIDENCE OF ACUTE INJURY. Foot X-Ray 02/03/18 00:00 IMPRESSION: NEGATIVE STUDY OF THE RIGHT FOOT. NO RADIOGRAPHIC EVIDENCE OF ACUTE INJURY. Tibia/Fibula X-Ray 02/03/18 00:00 IMPRESSION: NEGATIVE STUDY OF THE RIGHT TIBIA AND FIBULA. NO RADIOGRAPHIC EVIDENCE OF ACUTE INJURY. Chest X-Ray 02/04/18 00:00 IMPRESSION: NO ACUTE RADIOGRAPHIC FINDING IN THE CHEST. Assessment & Plan - Diagnosis (1) I iliac muscle abscess Is this a current diagnosis for this admission?: Yes Plan: Patient status post irrigation debridement retroperitoneal abscess. Would continue current IV antibiotics given the osteomyelitis. Patient's clinical symptoms have somewhat improved along with his laboratory values. I feel a lot of his discomfort is postsurgical in nature and likely neuropathic secondary to location of patient's original abscess. At this point would recommend continuing physical therapy and mobilization. Currently no sign or symptoms of septic arthritis.
[2018-02-04] MEDS: CEFTRIAXONE 2 GM/D5W RTU 2 GM/50 ML RTUPB IV SCH (12:32)
[2018-02-04 16:20] LABS: APPEARANCE,URINE CLEAR; BILIRUBIN,URINE NEGATIVE (NEGATIVE); COLOR,URINE STRAW; GLUCOSE, URINE NEGATIVE (NEGATIVE); KETONES,URINE NEGATIVE (NEGATIVE); LEUKOCYTE ESTERASE,URINE NEGATIVE (NEGATIVE); NITRITE,URINE NEGATIVE (NEGATIVE); PROTEIN,URINE NEGATIVE (NEGATIVE); URINE SPECIFIC GRAVITY 1.005; UROBILINOGEN,URINE NEGATIVE mg/dL (<2.0)
--- NOTE | 2018-02-04 18:15 | PDOC PROGRESS REPORT ---
Subjective Progress Note for:: 02/04/18 Subjective:: The patient continues to complain of pain. Toradol will run out today. I will replace it with high dose ibuprofen. Reason For Visit: SACROILIAC JOINT SEPTIC ARTHRITIS,OSTEOMYELITIS OF Physical Exam Vital Signs: Temp Pulse Resp BP Pulse Ox 98.7 F 78 18 111/56 L 94 02/04/18 15:19 02/04/18 15:19 02/04/18 15:19 02/04/18 15:19 02/04/18 15:19 Intake & Output 02/03/18 02/04/18 02/05/18 06:59 06:59 06:59 Intake Total 4073 3604 Output Total 5275 2600 Balance -1202 1004 Weight 105.8 kg 105.7 kg General appearance: PRESENT: no acute distress, well-developed, well-nourished Neck exam: ABSENT: carotid bruit, JVD, lymphadenopathy, thyromegaly Respiratory exam: PRESENT: clear to auscultation jose. ABSENT: rales, rhonchi, wheezes Cardiovascular exam: PRESENT: RRR. ABSENT: diastolic murmur, rubs, systolic murmur Pulses: PRESENT: normal dorsalis pedis pul Vascular exam: PRESENT: normal capillary refill GI/Abdominal exam: PRESENT: normal bowel sounds, soft. ABSENT: distended, guarding, mass, organolmegaly, rebound, tenderness Rectal exam: PRESENT: deferred Extremities exam: PRESENT: full ROM, tenderness. ABSENT: calf tenderness, clubbing, pedal edema Neurological exam: PRESENT: alert, awake, oriented to person, oriented to place , oriented to time, oriented to situation, CN II-XII grossly intact. ABSENT: motor sensory deficit Psychiatric exam: PRESENT: appropriate affect, normal mood. ABSENT: homicidal ideation, suicidal ideation Skin exam: PRESENT: dry, intact, warm. ABSENT: cyanosis, rash Results Laboratory Results: 02/04/18 05:40 02/04/18 05:40 02/04/18 02/04/18 02/04/18 05:40 05:40 16:00 WBC 6.0 RBC 3.26 L Hgb 9.2 L Hct 27.0 L MCV 83 MCH 28.2 MCHC 34.0 RDW 13.2 Plt Count 494 H Seg Neutrophils % 67.2 Lymphocytes % 20.7 Monocytes % 8.4 Eosinophils % 2.7 Basophils % 1.0 Absolute Neutrophils 4.0 Absolute Lymphocytes 1.2 Absolute Monocytes 0.5 Absolute Eosinophils 0.2 Absolute Basophils 0.1 Sodium 137.4 Potassium 5.2 H Chloride 99 Carbon Dioxide 29 Anion Gap 9 BUN 26 H Creatinine 1.05 Est GFR ( Amer) > 60 Est GFR (Non-Af Amer) > 60 Glucose 112 H Calcium 9.1 Urine Color STRAW Urine Appearance CLEAR Urine pH 7.0 Ur Specific [place] 1.005 Urine Protein NEGATIVE Urine Glucose (UA) NEGATIVE Urine Ketones NEGATIVE Urine Blood NEGATIVE Urine Nitrite NEGATIVE Ur Leukocyte Esterase NEGATIVE Urine WBC (Auto) 0 Urine RBC (Auto) 0 Impressions: Lumbar Spine MRI 01/24/18 10:48 IMPRESSION: Septic right SI joint with adjacent marrow edema and contrast enhancement 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 4 x 2 cm abscess protruding off the ventral aspect right SI joint deep to the iliacus muscle in the pelvis. Diffuse edema in the iliacus and right paraspinal muscles without other abscess identified at this time. Signal abnormalities worrisome for early septic arthritis in the left SI joint without abscess. No epidural abscess. Findings discussed with the emergency room attending physician. Guidance Fluoroscopy 01/27/18 00:00 IMPRESSION: SUCCESSFUL PLACEMENT OF A 5 FR DUAL LUMEN 38 CM PICC IN THE LEFT BASILIC VEIN. Interventional Vascular Procedure 01/27/18 00:00 IMPRESSION: SUCCESSFUL PLACEMENT OF A 5 FR DUAL LUMEN 38 CM PICC IN THE LEFT BASILIC VEIN. PICC Line Insertion 01/27/18 00:00 IMPRESSION: SUCCESSFUL PLACEMENT OF A 5 FR DUAL LUMEN 38 CM PICC IN THE LEFT BASILIC VEIN. Abdomen/Pelvis CT 02/02/18 00:00 IMPRESSION: Presumed osteomyelitis of the right iliac wing. Adjacent soft tissue density but without a discrete abscess. No intraabdominal finding. Femur X-Ray 02/03/18 00:00 IMPRESSION: NEGATIVE STUDY OF THE RIGHT FEMUR. NO RADIOGRAPHIC EVIDENCE OF ACUTE INJURY. Foot X-Ray 02/03/18 00:00 IMPRESSION: NEGATIVE STUDY OF THE RIGHT FOOT. NO RADIOGRAPHIC EVIDENCE OF ACUTE INJURY. Tibia/Fibula X-Ray 02/03/18 00:00 IMPRESSION: NEGATIVE STUDY OF THE RIGHT TIBIA AND FIBULA. NO RADIOGRAPHIC EVIDENCE OF ACUTE INJURY. Chest X-Ray 02/04/18 00:00 IMPRESSION: NO ACUTE RADIOGRAPHIC FINDING IN THE CHEST. Assessment & Plan - Diagnosis (1) I iliac muscle abscess Is this a current diagnosis for this admission?: Yes Plan: The patient will require 8 weeks of IV ceftriaxone. Orthopedic surgery has re- evaluated the patient and feels that the patient's pain is likely neuropathic. Dr Guevara from pain control has increased the patient's dose of Lyrica. (2) Leukocytosis Qualifiers: Leukocytosis type: leukemoid reaction Qualified Code(s): D72.823 - Leukemoid reaction Is this a current diagnosis for this admission?: Yes Plan: Resolved. The patient's WBC count hs decreased from 17.7 to 6.4 today. (3) Right and left IS joint septic arthritis Is this a current diagnosis for this admission?: Yes Plan: The patient will require 8 weeks of IV ceftriaxone. Although the patient states that it has been "years" since his used IV drugs, nursing has received a call from family stating that they have found drug paraphernalia and needles in the area where he resides. I have discussed the patient with nursing who has been successful in placing a peripheral IV in the patient and feels that the patient will be able to have serial peripheral IV's placed over the course of the coming weeks in order for him to receive his antibiotics from the infusion center. The PICC has been removed. The patient is very upset about this. Repeat CT of the abdomen and pelvis is negative for abscess or other new source of fever and pain. (4) Sacral bone osteomyelitis Is this a current diagnosis for this admission?: Yes Plan: The patient will require 8 weeks of IV ceftriaxone. Although the patient states that it has been "years" since his used IV drugs, nursing has received a call from family stating that they have found drug paraphernalia and needles in the area where he resides. I have discussed the patient with nursing who has been successful in placing a peripheral IV in the patient and feels that the patient will be able to have serial peripheral IV's placed over the course of the coming weeks in order for him to receive his antibiotics from the infusion center. The PICC has been removed. The patient is very upset about this. Repeat CT of the abdomen and pelvis fails to show any new source of fever or pain. Orthopedic surgery has re-evaluated the patient. They feel that the patient's continued pain is neuropathic and related to the location of the patient's abscess. Dr. Guevara for pain control has increased the patient's Lyrica. (5) Sepsis Qualifiers: Sepsis type: methicillin susceptible Staphylococcus aureus Qualified Code(s ): A41.01 - Sepsis due to Methicillin susceptible Staphylococcus aureus Is this a current diagnosis for this admission?: Yes Plan: Sepsis is resolved. The patient will continue to require IV Ceftriaxone for the next 8 weeks. Echocardiogram has been performed and is negative for vegetation. (6) DVT (deep venous thrombosis) Qualifiers: DVT location: lower extremity Chronicity: acute Laterality: right Is this a current diagnosis for this admission?: No Plan: Ruled out with normal doppler. (7) Fever Qualifiers: Fever type: unspecified Qualified Code(s): R50.9 - Fever, unspecified Is this a current diagnosis for this admission?: Yes Plan: Possibly due to residual linflammation and infection due to osteomyelitis and abscesses that have been drained. Also possibly due to drug fever. Out of an excess of caution and due to the concerns of the patient and his mother I repeated a CT of the patient's abdomen and pelvis. It fails to demonstrate a new source of fever and pain. I have also checked a CRP which is declined significantly to 61 from the initial 261. ESR is elevated. I will discuss with ID on Tuesday prior to the patient's dc. - Time Time Spent with patient: 35 or more minutes Medications reviewed and adjusted accordingly: Yes Anticipated discharge: Home
[2018-02-04] MEDS: DIPHENHYDRAMINE HCL 25 MG CAPSULE PO SCH (22:02)
[2018-02-04] MEDS: IBUPROFEN 800 MG TABLET PO SCH (22:02)
[2018-02-04] MEDS: NICOTINE 14 MG/24 HR PATCH.TD24 TD SCH (22:02)
[2018-02-05] MEDS ORDERED: NORMAL SALINE 1000 ML 1,000 ML IV ONE (00:30)
[2018-02-05] MEDS: CLONIDINE HCL 0.1 MG TABLET PO SCH ×2 (00:41→05:40)
[2018-02-05] MEDS: HYDROMORPHONE HCL 2 MG TABLET PO SCH ×3 (00:41→21:09)
[2018-02-05] MEDS ORDERED: OXYCODONE HCL IR 5 MG TABLET PO PRN (02:14)
[2018-02-05] MEDS ORDERED: LACTULOSE SYRUP 20 GM/30 ML UDCUP PO ONE (02:16)
[2018-02-05] MEDS ORDERED: HYDROMORPHONE HCL 2 MG TABLET PO SCH (03:00)
[2018-02-05] MEDS: IBUPROFEN 800 MG TABLET PO SCH ×3 (05:44→21:10)
[2018-02-05] MEDS: HEPARIN SOD (PORCINE) 5,000 UNIT/ML 1 ML SYRINGE SUBCUT SCH ×3 (05:44→21:11)
[2018-02-05] MEDS: LANSOPRAZOLE 30 MG TAB.RAP.DR PO SCH (05:44)
[2018-02-05] MEDS: PREGABALIN 75 MG CAPSULE PO SCH ×3 (05:44→21:09)
[2018-02-05] MEDS ORDERED: DIAZEPAM 5 MG TABLET PO SCH (06:00)
[2018-02-05 06:02] LABS: ABSOLUTE EOSINOPHILS # (AUTO) 0.2 10^3/uL (0.0-0.6); ABSOLUTE LYMPHOCYTES (AUTO) 1.2 10^3/uL (0.5-4.7); ABSOLUTE MONOCYTES (AUTO) 0.5 10^3/uL (0.1-1.4); ABSOLUTE NEUT (AUTO) 3.4 10^3/uL (1.7-8.2); BASOPHILS % (AUTO) 0.4 % (0-2); EOSINOPHILS % (AUTO) 3.9 % (0-6); HEMATOCRIT 25.8 % (37.9-51.0); HEMOGLOBIN 8.8 g/dL (13.5-17.0); MEAN CORPUSCULAR HEMOGLOBIN 27.9 pg (27.0-33.4); MEAN CORPUSCULAR HGB CONC 34.1 g/dL (32.0-36.0); MEAN CORPUSCULAR VOLUME 82 fl (80-97); MONOCYTES % (AUTO) 8.6 % (3-13); PLATELET COUNT 533 10^3/uL (150-450); RED BLOOD COUNT 3.15 10^6/uL (4.35-5.55); RED CELL DISTRIBUTION WIDTH 13.2 % (11.5-14.0); SEGMENTED NEUTROPHILS % (AUTO) 64.1 % (42-78); TOTAL CELLS COUNTED % (AUTO) 100 %; WHITE BLOOD COUNT 5.4 10^3/uL (4.0-10.5)
[2018-02-05 06:22] LABS: ALANINE AMINOTRANSFERASE 56 U/L (21-72); ALKALINE PHOSPHATASE 174 U/L (38-126); ANION GAP 9 (5-19); ASPARTATE AMINO TRANSFERASE 71 U/L (17-59); BILIRUBIN,DIRECT 0.5 mg/dL (0.0-0.4); BILIRUBIN,TOTAL 0.5 mg/dL (0.2-1.3); BLOOD UREA NITROGEN 27 mg/dL (7-20); CALCIUM 9.2 mg/dL (8.4-10.2); CARBON DIOXIDE 28 mmol/L (22-30); CHLORIDE 105 mmol/L (98-107); GLUCOSE 96 mg/dL (75-110); POTASSIUM 5.5 mmol/L (3.6-5.0); SODIUM 141.7 mmol/L (137-145); TOTAL PROTEIN 6.9 g/dL (6.3-8.2)
[2018-02-05] MEDS ORDERED: HYDROMORPHONE HCL 2 MG TABLET PO ONE (10:30)
[2018-02-05] MEDS: DOCUSATE SODIUM 100 MG CAPSULE PO SCH ×2 (11:02→18:09)
[2018-02-05] MEDS: CEFTRIAXONE 2 GM/D5W RTU 2 GM/50 ML RTUPB IV SCH (12:53)
--- NOTE | 2018-02-05 13:17 | PDOC PROGRESS REPORT ---
Subjective Progress Note for:: 02/05/18 Subjective:: The patient has had some low blood pressures since he was started on clonidine by Dr. Guevara for pain control. As a result last night the hospitalist baby registry sales consultant reduced his pain medications by 1/2. The patient is now refusing the clonidine and is again complaining bitterly of pain. Reason For Visit: SACROILIAC JOINT SEPTIC ARTHRITIS,OSTEOMYELITIS OF Physical Exam Vital Signs: Temp Pulse Resp BP Pulse Ox 98.3 F 80 18 115/53 L 97 02/05/18 11:47 02/05/18 11:47 02/05/18 11:47 02/05/18 11:47 02/05/18 11:47 Intake & Output 02/04/18 02/05/18 02/06/18 06:59 06:59 06:59 Intake Total 3604 5982 Output Total 2600 4975 Balance 1004 1007 Weight 105.7 kg 106.9 kg General appearance: PRESENT: no acute distress Respiratory exam: PRESENT: other - No increased work of breathing. No wheezes, rales, or rhonchi. No tactile fremitus. Cardiovascular exam: PRESENT: RRR. ABSENT: gallop, rubs, systolic murmur Pulses: PRESENT: normal femoral pulses, normal dorsalis pedis pul GI/Abdominal exam: PRESENT: normal bowel sounds. ABSENT: hernia, mass, organolmegaly, tenderness Extremities exam: ABSENT: clubbing, pedal edema, +1 edema Musculoskeletal exam: ABSENT: deformity Neurological exam: PRESENT: alert, altered, awake, oriented to person, oriented to place, oriented to time, CN II-XII grossly intact. ABSENT: motor sensory deficit Psychiatric exam: PRESENT: appropriate affect, normal mood Skin exam: PRESENT: dry, intact, warm Results Laboratory Results: 02/05/18 05:32 02/05/18 05:32 02/04/18 02/05/18 02/05/18 16:00 05:32 05:32 WBC 5.4 RBC 3.15 L Hgb 8.8 L Hct 25.8 L MCV 82 MCH 27.9 MCHC 34.1 RDW 13.2 Plt Count 533 H Seg Neutrophils % 64.1 Lymphocytes % 23.0 Monocytes % 8.6 Eosinophils % 3.9 Basophils % 0.4 Absolute Neutrophils 3.4 Absolute Lymphocytes 1.2 Absolute Monocytes 0.5 Absolute Eosinophils 0.2 Absolute Basophils 0.0 Sodium 141.7 Potassium 5.5 H Chloride 105 Carbon Dioxide 28 Anion Gap 9 BUN 27 H Creatinine 0.96 Est GFR ( Amer) > 60 Est GFR (Non-Af Amer) > 60 Glucose 96 Calcium 9.2 Total Bilirubin 0.5 AST 71 H ALT 56 Alkaline Phosphatase 174 H Total Protein 6.9 Albumin 3.0 L Urine Color STRAW Urine Appearance CLEAR Urine pH 7.0 Ur Specific [place] 1.005 Urine Protein NEGATIVE Urine Glucose (UA) NEGATIVE Urine Ketones NEGATIVE Urine Blood NEGATIVE Urine Nitrite NEGATIVE Ur Leukocyte Esterase NEGATIVE Urine WBC (Auto) 0 Urine RBC (Auto) 0 Impressions: Lumbar Spine MRI 01/24/18 10:48 IMPRESSION: Septic right SI joint with adjacent marrow edema and contrast enhancement 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 4 x 2 cm abscess protruding off the ventral aspect right SI joint deep to the iliacus muscle in the pelvis. Diffuse edema in the iliacus and right paraspinal muscles without other abscess identified at this time. Signal abnormalities worrisome for early septic arthritis in the left SI joint without abscess. No epidural abscess. Findings discussed with the emergency room attending physician. Guidance Fluoroscopy 01/27/18 00:00 IMPRESSION: SUCCESSFUL PLACEMENT OF A 5 FR DUAL LUMEN 38 CM PICC IN THE LEFT BASILIC VEIN. Interventional Vascular Procedure 01/27/18 00:00 IMPRESSION: SUCCESSFUL PLACEMENT OF A 5 FR DUAL LUMEN 38 CM PICC IN THE LEFT BASILIC VEIN. PICC Line Insertion 01/27/18 00:00 IMPRESSION: SUCCESSFUL PLACEMENT OF A 5 FR DUAL LUMEN 38 CM PICC IN THE LEFT BASILIC VEIN. Abdomen/Pelvis CT 02/02/18 00:00 IMPRESSION: Presumed osteomyelitis of the right iliac wing. Adjacent soft tissue density but without a discrete abscess. No intraabdominal finding. Femur X-Ray 02/03/18 00:00 IMPRESSION: NEGATIVE STUDY OF THE RIGHT FEMUR. NO RADIOGRAPHIC EVIDENCE OF ACUTE INJURY. Foot X-Ray 02/03/18 00:00 IMPRESSION: NEGATIVE STUDY OF THE RIGHT FOOT. NO RADIOGRAPHIC EVIDENCE OF ACUTE INJURY. Tibia/Fibula X-Ray 02/03/18 00:00 IMPRESSION: NEGATIVE STUDY OF THE RIGHT TIBIA AND FIBULA. NO RADIOGRAPHIC EVIDENCE OF ACUTE INJURY. Chest X-Ray 02/04/18 00:00 IMPRESSION: NO ACUTE RADIOGRAPHIC FINDING IN THE CHEST. Assessment & Plan - Diagnosis (1) I iliac muscle abscess Is this a current diagnosis for this admission?: Yes Plan: The patient will require 8 weeks of IV ceftriaxone. Orthopedic surgery has re- evaluated the patient and feels that the patient's pain is likely neuropathic. Dr Guevara from pain control has increased the patient's dose of Lyrica and adjusted his other pain medications. (2) Leukocytosis Qualifiers: Leukocytosis type: leukemoid reaction Qualified Code(s): D72.823 - Leukemoid reaction Is this a current diagnosis for this admission?: Yes Plan: Resolved. The patient's WBC count hs decreased from 17.7 to 5.6 today. (3) Right and left IS joint septic arthritis Is this a current diagnosis for this admission?: Yes Plan: The patient will require 8 weeks of IV ceftriaxone. Although the patient states that it has been "years" since his used IV drugs, nursing has received a call from family stating that they have found drug paraphernalia and needles in the area where he resides. I have discussed the patient with nursing who has been successful in placing a peripheral IV in the patient and feels that the patient will be able to have serial peripheral IV's placed over the course of the coming weeks in order for him to receive his antibiotics from the infusion center. The PICC has been removed. The patient is very upset about this. Repeat CT of the abdomen and pelvis is negative for abscess or other new source of fever and pain. WBC count continues to decrease. Pain medications have been adjusted by pain management. (4) Sacral bone osteomyelitis Is this a current diagnosis for this admission?: Yes Plan: The patient will require 8 weeks of IV ceftriaxone. Although the patient states that it has been "years" since his used IV drugs, nursing has received a call from family stating that they have found drug paraphernalia and needles in the area where he resides. I have discussed the patient with nursing who has been successful in placing a peripheral IV in the patient and feels that the patient will be able to have serial peripheral IV's placed over the course of the coming weeks in order for him to receive his antibiotics from the infusion center. The PICC has been removed. The patient is very upset about this. Repeat CT of the abdomen and pelvis is negative for abscess or other new source of fever and pain. WBC count continues to decrease. Pain medications have been adjusted by pain management. (5) Sepsis Qualifiers: Sepsis type: methicillin susceptible Staphylococcus aureus Qualified Code(s ): A41.01 - Sepsis due to Methicillin susceptible Staphylococcus aureus Is this a current diagnosis for this admission?: Yes Plan: Sepsis is resolved. The patient will continue to require IV Ceftriaxone for the next 8 weeks. Echocardiogram has been performed and is negative for vegetation. (6) DVT (deep venous thrombosis) Qualifiers: DVT location: lower extremity Chronicity: acute Laterality: right Is this a current diagnosis for this admission?: No Plan: Ruled out with normal doppler. (7) Fever Qualifiers: Fever type: unspecified Qualified Code(s): R50.9 - Fever, unspecified Is this a current diagnosis for this admission?: Yes Plan: Possibly due to residual inflammation and infection due to osteomyelitis and abscesses that have been drained. Also possibly due to drug fever. Out of an excess of caution and due to the concerns of the patient and his mother I repeated a CT of the patient's abdomen and pelvis. It fails to demonstrate a new source of fever and pain. I have also checked a CRP which is declined significantly to 61 from the initial 261. ESR is elevated. WBC has reduced to 5.4. I will discuss with ID on Tuesday prior to the patient's dc. - Time Time Spent with patient: 35 or more minutes Medications reviewed and adjusted accordingly: Yes Anticipated discharge: Home Within: within 36 hours
[2018-02-05] MEDS: DIAZEPAM 5 MG TABLET PO SCH ×2 (14:13→21:10)
[2018-02-05] MEDS: OXYCODONE HCL IR 5 MG TABLET PO PRN (18:08)
[2018-02-05] MEDS: ACETAMINOPHEN 325 MG TABLET PO PRN (19:55)
[2018-02-05] MEDS: DIPHENHYDRAMINE HCL 25 MG CAPSULE PO SCH (21:09)
[2018-02-05] MEDS: NICOTINE 14 MG/24 HR PATCH.TD24 TD SCH (21:10)
--- NOTE | 2018-02-05 21:11 | CONSULTATION REPORT E ---
Consultation Report NAME: JOEL BENAVIDES : 1985 AGE: 32Y DATE: 01/30/2018 320 A TO: LUKE MALAVE FROM: LORENZA MARSHALL M.D. Requesting Physician CHIEF COMPLAINT: Intractable back and lower extremity pain. HISTORY OF PRESENT ILLNESS: This is a new patient to us, 32-year-old male who we are consulted on for chronic back, hip, and lower extremity pain. The patient was previously seen in the ER at [place] for recurrent back and hip pain bilaterally with the right being worse than the left. When seen here in [place], it looks like he had been brought in and treated for septic right sacroiliac joint as well as osteomyelitis. He has been seen by Dr. Weaver and has undergone an incision and drainage of the right SI joint, but having ongoing pain. The patient states that he initially had the pain about a week ago, had been seen at [place] emergency room at multiple times and was told that some of the pain may be secondary to use of ongoing prednisone, as he had been treated for pleurisy for the past 2 months. At one point, was told to stop the prednisone to see if there would be any relief, but he received none. Notes that he developed swelling, erythema, and an increased pain of the right SI joint, hip area, and at that point, he decided to be seen here at [facility] through the ER. Evaluated in the emergency room, and at that point in time, he had undergone an MRI, which showed some possible osteomyelitis as well as an abscess and septic SI joint with the right being greater than the left, at which point he was seen by Ortho, Dr. Weaver, and underwent an excision and drainage. The patient states that he continues to have ongoing pain regardless of the current regimen of medications that he is taking. He reports that the pain is more of a burning, stabbing, aching joint pain with shooting from the back down the right lower extremity to the foot and to the groin on the right. He notes that he has some pain radiation to the left groin intermittently. Pain is worse with standing activity, prolonged sitting, or trying to sit up. Pain improves with resting and lying in a specifically reclined position. The patient feels that with the current regimen medications taken it helps to dull the pain, but does not help to alleviate it. Presently taking Dilaudid 2 mg via IV and states he does get about 2-3 hours of relief when he does take it. Feels he gets more relief with the Toradol injections as it lasts about 4 hours and he also uses oral Motrin and he feels that he gets about 3-4 hours of relief when he takes that. He also uses ice packs over the site of the swelling and erythema. The patient denies any type of trauma at the onset of the pain, just the swelling and erythema. He denies use of morphine, Santyl, . Has used Percocet initially without any side effects or complications. States that he is not sure if the fentanyl 75 mcg patch that he is currently taking is doing anything at all as he only sees relief when he takes the IV Dilaudid and the IM ketorolac. The patient denies any MRIs or imaging prior to his hospitalization currently. He denies any chronic pain or use of chronic medications prior to admission into the hospital. Denies any changes in bowel or bladder control or incontinence. PAST MEDICAL HISTORY: Noted history of asthma that is exercise induced and reported hepatitis C. SOCIAL HISTORY: Admits to smoking daily, but denies any recreational alcohol consumption or use. FAMILY HISTORY: Significant for hypertension and review is not pertinent otherwise. SURGICAL HISTORY: Denies any surgical history at this point. MEDICATIONS: Denies any medications at home prior to admission. ALLERGIES: No known drug allergies at this time. REVIEW OF SYSTEMS: CONSTITUTIONAL: The patient is lying in bed, appears to be in moderate pain. Notes no pain with any type of movement. NEUROLOGICAL: He appears to be alert and oriented x3. No cranial nerves reported. Does note that he is having some numbness, tingling, decreased sensation of the right extremity from the knee down with pain radiation from the hip down to the butt and thighs of the right leg to the knee. EYES: Denies any photophobia, blurry vision. EARS: Denies any decrease in hearing. NOSE: Denies any epistaxis, runny nose, congestion. MOUTH AND THROAT: Denies any swelling, difficulty swallowing. CARDIOVASCULAR: Denies any chest pain, tightness, swelling of the extremities. RESPIRATORY: Denies any shortness of breath, wheezing. GASTROINTESTINAL: Denies any abdominal pain, constipation, distention. MUSCULOSKELETAL: Notes back and lower extremity pain with good range of motion of the lower extremities. SKIN: Reports rash, swelling of the right hip and gluteal region. PSYCHIATRIC: Denies any homicidal/suicidal ideation at this time. PHYSICAL EXAMINATION: VITAL SIGNS: The patient's vital signs are as follows: Temperature 99.3, pulse of 102, blood pressure 137/68, respirations 14, O2 saturation 98% on room air. GENERAL APPEARANCE: Patient lying in bed with some moderate pain, discomfort. HEAD: Normocephalic, atraumatic. EYES: PERRLA with EOMI. NECK: Trachea midline. No goiters, mass, lesions. RESPIRATORY: Lungs are clear to auscultation bilaterally. CARDIOVASCULAR: S1, S2 auscultated with regular rate and rhythm. No murmurs, gallops, or rubs. NEUROLOGICAL: The patient noted increased pain, neuropathic radicular pain with straight leg raises and movement of the right hip, also noted decreased sensation of the entire right lower extremity from the knee down to the foot in comparison to the left. Noted full range of motion with pain and discomfort on exam. SKIN: Noted erythema, swelling of the right hip. Based on the lines that are being drawn from yesterday's boundaries of erythema, it has some improvement, noted bandage in place, well covered from recent incision and drainage. Depleted by Dr. Weaver. Noted diffuse tenderness to palpation on exam and pain with any type of rotational movement on exam. BACK: Unable to fully assess back due to increased pain with range of motion, but diffuse tenderness to palpation with inspiration on exam. PSYCHOLOGICAL: The patient is alert and oriented x3 with some pain behavior noted on exam as well. ASSESSMENT: 1. 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 2. Chronic pain. PLAN: Based on patient's current position of pain, will review some of the modifications and adjustment of medications for better control while hospitalized. There is some noted concern that based on the nurses notes and interaction with patient's parent that there may have been some findings of drug paraphernalia, illegals in patient's room in which the patient and the parents had a small argument about while in the hospital today. Although no noted signs and symptoms of drug abuse on exam, such as track duran or changes in dentition or pupillary response changes, there has to be underlying concern for potential drug abuse or misuse. With that being said, we will make the following adjustments as to his regimen. 1. We will stop the IV Dilaudid and oxycodone 10 mg q. 4 hours p.o. as needed. 2. We will continue with the fentanyl 75 mcg every 72 hours for now. 3. We will start ongoing acetaminophen 975 mg 3 times a day and alternate with Toradol that was given as prescribed. 4. Recommend increasing Lyrica to 100 mg 3 times a day daily. At this point, we will consider OxyContin if unable to tolerate the dosing of oxycodone . If not, will give consideration for morphine extended release at 30 mg 2-3 times a day. Will monitor for pain control and also for underlying drug abuse and misuse. . No noted significant drug controlled substances have been prescribed on an ongoing basis prior to this hospitalization. Case was reviewed with Dr. Raffi Stephens. Will follow up with patient in 24 hours to review pain level. If pain changes or worsens, please feel free to give us a call. Once again, I want to thank you for the opportunity to share in the patient's healthcare. If you have any specific questions or concerns, feel free to reach out to us. DICTATING PHYSICIAN: LUKE MALAVE [id number] PHY#: [id number] ID: [id number] JOB#: [id number] ACCT: [id number] cc:KENNEDY DAVID >
[2018-02-06] MEDS: HYDROMORPHONE HCL 2 MG TABLET PO SCH ×4 (02:52→20:07)
[2018-02-06] MEDS: ACETAMINOPHEN 325 MG TABLET PO PRN ×2 (04:16→20:05)
[2018-02-06] MEDS: HEPARIN SOD (PORCINE) 5,000 UNIT/ML 1 ML SYRINGE SUBCUT SCH ×3 (05:41→21:42)
[2018-02-06] MEDS: OXYCODONE HCL IR 5 MG TABLET PO PRN ×3 (05:41→17:06)
[2018-02-06] MEDS: PREGABALIN 75 MG CAPSULE PO SCH ×3 (05:42→21:42)
[2018-02-06] MEDS: IBUPROFEN 800 MG TABLET PO SCH ×3 (05:42→21:42)
[2018-02-06] MEDS: LANSOPRAZOLE 30 MG TAB.RAP.DR PO SCH (05:42)
[2018-02-06] MEDS: DIAZEPAM 5 MG TABLET PO SCH ×3 (05:45→21:42)
[2018-02-06] MEDS: DOCUSATE SODIUM 100 MG CAPSULE PO SCH ×2 (09:05→17:06)
[2018-02-06] MEDS: CEFTRIAXONE 2 GM/D5W RTU 2 GM/50 ML RTUPB IV SCH (13:10)
--- NOTE | 2018-02-06 13:14 | PDOC PROGRESS REPORT ---
Subjective Progress Note for:: 02/06/18 Reason For Visit: SACROILIAC JOINT SEPTIC ARTHRITIS,OSTEOMYELITIS OF Patient is a 32-year-old white male who is now hospital day 13 status post irrigation debridement of a right SI joint and right anterior retro-peritoneal abscess on January 25, 2018. Overall his right lower extremities are not completely alleviated but they are improved. He is now complaining of increased left inguinal pain associate with motion. He states that he does not have any pain associate with abduction or abduction of the extremities when he work with physical therapy but has excruciating pain when he attempts to flex the hip against gravity. Physical Exam Vital Signs: Temp Pulse Resp BP Pulse Ox 36.8 C 85 18 125/63 99 02/06/18 11:28 02/06/18 11:28 02/06/18 11:28 02/06/18 11:28 02/06/18 11:28 Intake & Output 02/05/18 02/06/18 02/07/18 06:59 06:59 06:59 Intake Total 5982 4220 Output Total 4975 3775 Balance 1007 445 Weight 106.9 kg 104.1 kg Physical Exam: Overweight middle-aged white male lying in hospital bed surrounded by multiple family members General appearance: PRESENT: mild distress, severe distress Head exam: PRESENT: normocephalic Respiratory exam: PRESENT: unlabored Cardiovascular exam: PRESENT: RRR Pulses: PRESENT: +1 pedal pulses bilateral Vascular exam: PRESENT: normal capillary refill GI/Abdominal exam: PRESENT: soft Rectal exam: PRESENT: deferred Extremities exam: PRESENT: other - The patient is alert oriented speech is somewhat pressured. The right posterior sacroiliac incision has a small amount of drainage and I requested that the nursing staff changes. Passive range of motion of the right lower extremity because left inguinal pain presumably secondary to pelvic motion. Passive range of motion of the left lower extremity causes significant/excruciating pain. Leg lengths are equal. Distal neurovascular examination is intact. Psychiatric exam: PRESENT: appropriate affect, normal mood. ABSENT: homicidal ideation, suicidal ideation Skin exam: PRESENT: dry, intact, warm. ABSENT: cyanosis, rash Results Laboratory Results: 02/05/18 05:32 02/05/18 05:32 Impressions: Lumbar Spine MRI 01/24/18 10:48 IMPRESSION: Septic right SI joint with adjacent marrow edema and contrast enhancement 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 4 x 2 cm abscess protruding off the ventral aspect right SI joint deep to the iliacus muscle in the pelvis. Diffuse edema in the iliacus and right paraspinal muscles without other abscess identified at this time. Signal abnormalities worrisome for early septic arthritis in the left SI joint without abscess. No epidural abscess. Findings discussed with the emergency room attending physician. Guidance Fluoroscopy 01/27/18 00:00 IMPRESSION: SUCCESSFUL PLACEMENT OF A 5 FR DUAL LUMEN 38 CM PICC IN THE LEFT BASILIC VEIN. Interventional Vascular Procedure 01/27/18 00:00 IMPRESSION: SUCCESSFUL PLACEMENT OF A 5 FR DUAL LUMEN 38 CM PICC IN THE LEFT BASILIC VEIN. PICC Line Insertion 01/27/18 00:00 IMPRESSION: SUCCESSFUL PLACEMENT OF A 5 FR DUAL LUMEN 38 CM PICC IN THE LEFT BASILIC VEIN. Abdomen/Pelvis CT 02/02/18 00:00 IMPRESSION: Presumed osteomyelitis of the right iliac wing. Adjacent soft tissue density but without a discrete abscess. No intraabdominal finding. Femur X-Ray 02/03/18 00:00 IMPRESSION: NEGATIVE STUDY OF THE RIGHT FEMUR. NO RADIOGRAPHIC EVIDENCE OF ACUTE INJURY. Foot X-Ray 02/03/18 00:00 IMPRESSION: NEGATIVE STUDY OF THE RIGHT FOOT. NO RADIOGRAPHIC EVIDENCE OF ACUTE INJURY. Tibia/Fibula X-Ray 02/03/18 00:00 IMPRESSION: NEGATIVE STUDY OF THE RIGHT TIBIA AND FIBULA. NO RADIOGRAPHIC EVIDENCE OF ACUTE INJURY. Chest X-Ray 02/04/18 00:00 IMPRESSION: NO ACUTE RADIOGRAPHIC FINDING IN THE CHEST. Status: Imported from PACS Assessment & Plan - Diagnosis (1) Right and left IS joint septic arthritis Is this a current diagnosis for this admission?: Yes (2) Left hip pain Is this a current diagnosis for this admission?: Yes Plan: 32-year-old white male status post I&D of a right pelvic abscess/osteomyelitis and some improvement in his right lower extremity symptoms. The patient has been afebrile for several days now. He is now experiencing increasing left inguinal pain of uncertain etiology. Plan will be to repeat his laboratory studies including sed rate and CRP. Also let us repeat the CT scan of the pelvis with contrast. - Time Time Spent with patient: 15-24 minutes Anticipated discharge: Other Within: Other
[2018-02-06 15:24] LABS: ABSOLUTE BASOPHILS # (AUTO) 0.1 10^3/uL (0.0-0.2); ABSOLUTE EOSINOPHILS # (AUTO) 0.2 10^3/uL (0.0-0.6); ABSOLUTE LYMPHOCYTES (AUTO) 1.5 10^3/uL (0.5-4.7); ABSOLUTE MONOCYTES (AUTO) 0.4 10^3/uL (0.1-1.4); ABSOLUTE NEUT (AUTO) 3.9 10^3/uL (1.7-8.2); BASOPHILS % (AUTO) 2.2 % (0-2); EOSINOPHILS % (AUTO) 3.5 % (0-6); HEMATOCRIT 28.2 % (37.9-51.0); HEMOGLOBIN 9.7 g/dL (13.5-17.0); LYMPHOCYTES % (AUTO) 24.6 % (13-45); MEAN CORPUSCULAR HEMOGLOBIN 28.3 pg (27.0-33.4); MEAN CORPUSCULAR HGB CONC 34.5 g/dL (32.0-36.0); MEAN CORPUSCULAR VOLUME 82 fl (80-97); MONOCYTES % (AUTO) 6.8 % (3-13); PLATELET COUNT 812 10^3/uL (150-450); RED BLOOD COUNT 3.44 10^6/uL (4.35-5.55); RED CELL DISTRIBUTION WIDTH 13.5 % (11.5-14.0); SEGMENTED NEUTROPHILS % (AUTO) 62.9 % (42-78); TOTAL CELLS COUNTED % (AUTO) 100 %; WHITE BLOOD COUNT 6.1 10^3/uL (4.0-10.5)
--- NOTE | 2018-02-06 15:24 | PDOC PROGRESS REPORT ---
Subjective Progress Note for:: 02/06/18 Subjective:: The patient worked with physical therapy this morning. After than session he states that he has had increased pain in his left hip and back. Orthopedic surgery has ordered a repeat CT to investigate. The patient also complains of increased pain from his pleurisy. Reason For Visit: SACROILIAC JOINT SEPTIC ARTHRITIS,OSTEOMYELITIS OF Physical Exam Vital Signs: Temp Pulse Resp BP Pulse Ox 98.2 F 85 18 125/63 99 02/06/18 11:28 02/06/18 11:28 02/06/18 11:28 02/06/18 11:28 02/06/18 11:28 Intake & Output 02/05/18 02/06/18 02/07/18 06:59 06:59 06:59 Intake Total 5982 4220 Output Total 4975 3775 Balance 1007 445 Weight 106.9 kg 104.1 kg General appearance: PRESENT: no acute distress, morbidly obese Respiratory exam: PRESENT: other - No increased work of breathing. No rubs.. ABSENT: rales, rhonchi, wheezes Cardiovascular exam: PRESENT: RRR. ABSENT: gallop, rubs Results Impressions: Lumbar Spine MRI 01/24/18 10:48 IMPRESSION: Septic right SI joint with adjacent marrow edema and contrast enhancement 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 4 x 2 cm abscess protruding off the ventral aspect right SI joint deep to the iliacus muscle in the pelvis. Diffuse edema in the iliacus and right paraspinal muscles without other abscess identified at this time. Signal abnormalities worrisome for early septic arthritis in the left SI joint without abscess. No epidural abscess. Findings discussed with the emergency room attending physician. Guidance Fluoroscopy 01/27/18 00:00 IMPRESSION: SUCCESSFUL PLACEMENT OF A 5 FR DUAL LUMEN 38 CM PICC IN THE LEFT BASILIC VEIN. Interventional Vascular Procedure 01/27/18 00:00 IMPRESSION: SUCCESSFUL PLACEMENT OF A 5 FR DUAL LUMEN 38 CM PICC IN THE LEFT BASILIC VEIN. PICC Line Insertion 01/27/18 00:00 IMPRESSION: SUCCESSFUL PLACEMENT OF A 5 FR DUAL LUMEN 38 CM PICC IN THE LEFT BASILIC VEIN. Abdomen/Pelvis CT 02/02/18 00:00 IMPRESSION: Presumed osteomyelitis of the right iliac wing. Adjacent soft tissue density but without a discrete abscess. No intraabdominal finding. Femur X-Ray 02/03/18 00:00 IMPRESSION: NEGATIVE STUDY OF THE RIGHT FEMUR. NO RADIOGRAPHIC EVIDENCE OF ACUTE INJURY. Foot X-Ray 02/03/18 00:00 IMPRESSION: NEGATIVE STUDY OF THE RIGHT FOOT. NO RADIOGRAPHIC EVIDENCE OF ACUTE INJURY. Tibia/Fibula X-Ray 02/03/18 00:00 IMPRESSION: NEGATIVE STUDY OF THE RIGHT TIBIA AND FIBULA. NO RADIOGRAPHIC EVIDENCE OF ACUTE INJURY. Chest X-Ray 02/04/18 00:00 IMPRESSION: NO ACUTE RADIOGRAPHIC FINDING IN THE CHEST. Assessment & Plan - Diagnosis (1) I iliac muscle abscess Is this a current diagnosis for this admission?: Yes Plan: The patient will require 8 weeks of IV ceftriaxone. Orthopedic surgery has re- evaluated the patient and feels that the patient's pain is likely neuropathic. Dr Guevara from pain control has increased the patient's dose of Lyrica and adjusted his other pain medications. I have discussed the patient with Dr. Schumacher with [facility]. She agrees with ortho's plan to repeat CT of the hip due to increased pain. Otherwise she stated that she had no other recommendations and that she was comfortable with our work up and plan. She felt comfortable with normalization of WBC, and decreased CRP. She stated that ESR was slower to react and that in her view it was relatively "unchanged". (2) Leukocytosis Qualifiers: Leukocytosis type: leukemoid reaction Qualified Code(s): D72.823 - Leukemoid reaction Is this a current diagnosis for this admission?: Yes Plan: Resolved. The patient's WBC count hs decreased from 17.7 to 5.6 today. (3) Right and left IS joint septic arthritis Is this a current diagnosis for this admission?: Yes Plan: The patient will require 8 weeks of IV ceftriaxone. Although the patient states that it has been "years" since his used IV drugs, nursing has received a call from family stating that they have found drug paraphernalia and needles in the area where he resides. I have discussed the patient with nursing who has been successful in placing a peripheral IV in the patient and feels that the patient will be able to have serial peripheral IV's placed over the course of the coming weeks in order for him to receive his antibiotics from the infusion center. The PICC has been removed. The patient is very upset about this. Repeat CT of the abdomen and pelvis is negative for abscess or other new source of fever and pain. WBC count continues to decrease. Pain medications have been adjusted by pain management. Orhtopedic surgery will repeat CT of the pelvis/ hips due to increased pain today. I have discussed the patient with Dr. Schumacher with [facility]. She agrees with ortho's plan to repeat CT of the hip due to increased pain. Otherwise she stated that she had no other recommendations and that she was comfortable with our work up and plan. She felt comfortable with normalization of WBC, and decreased CRP. She stated that ESR was slower to react and that in her view it was relatively "unchanged". (4) Sacral bone osteomyelitis Is this a current diagnosis for this admission?: Yes Plan: The patient will require 8 weeks of IV ceftriaxone. Although the patient states that it has been "years" since his used IV drugs, nursing has received a call from family stating that they have found drug paraphernalia and needles in the area where he resides. I have discussed the patient with nursing who has been successful in placing a peripheral IV in the patient and feels that the patient will be able to have serial peripheral IV's placed over the course of the coming weeks in order for him to receive his antibiotics from the infusion center. The PICC has been removed. The patient is very upset about this. Repeat CT of the abdomen and pelvis is negative for abscess or other new source of fever and pain. WBC count continues to decrease. Pain medications have been adjusted by pain management.Orhtopedic surgery will repeat CT of the pelvis/ hips due to increased pain today. I have discussed the patient with Dr. Schumacher with [facility]. She agrees with ortho's plan to repeat CT of the hip due to increased pain. Otherwise she stated that she had no other recommendations and that she was comfortable with our work up and plan. She felt comfortable with normalization of WBC, and decreased CRP. She stated that ESR was slower to react and that in her view it was relatively "unchanged". (5) Sepsis Qualifiers: Sepsis type: methicillin susceptible Staphylococcus aureus Qualified Code(s ): A41.01 - Sepsis due to Methicillin susceptible Staphylococcus aureus Is this a current diagnosis for this admission?: Yes Plan: Sepsis is resolved. The patient will continue to require IV Ceftriaxone for the next 8 weeks. Echocardiogram has been performed and is negative for vegetation.Orhtopedic surgery will repeat CT of the pelvis/hips due to increased pain today. I have discussed the patient with Dr. Schumacher with [facility]. She agrees with ortho's plan to repeat CT of the hip due to increased pain. Otherwise she stated that she had no other recommendations and that she was comfortable with our work up and plan. She felt comfortable with normalization of WBC, and decreased CRP. She stated that ESR was slower to react and that in her view it was relatively "unchanged". (6) DVT (deep venous thrombosis) Qualifiers: DVT location: lower extremity Chronicity: acute Laterality: right Is this a current diagnosis for this admission?: No Plan: Ruled out with normal doppler. (7) Fever Qualifiers: Fever type: unspecified Qualified Code(s): R50.9 - Fever, unspecified Is this a current diagnosis for this admission?: Yes Plan: Possibly due to residual inflammation and infection due to osteomyelitis and abscesses that have been drained. Also possibly due to drug fever. Out of an excess of caution and due to the concerns of the patient and his mother I repeated a CT of the patient's abdomen and pelvis. It fails to demonstrate a new source of fever and pain. I have also checked a CRP which is declined significantly to 61 from the initial 261. ESR is elevated. WBC has reduced to 5.4. I will discuss with ID on Tuesday prior to the patient's dc. Orhtopedic surgery will repeat CT of the pelvis/hips due to increased pain today. I have discussed the patient with Dr. Schumacher with [facility]. She agrees with ortho's plan to repeat CT of the hip due to increased pain. Otherwise she stated that she had no other recommendations and that she was comfortable with our work up and plan. She felt comfortable with normalization of WBC, and decreased CRP. She stated that ESR was slower to react and that in her view it was relatively "unchanged". No fevers since 02/04/2018. - Time Time Spent with patient: 35 or more minutes Medications reviewed and adjusted accordingly: Yes Anticipated discharge: Home - Plan Summary Plan Summary: Awaiting results of repeat CT and family education wound care and DME. Plan is to dc to home with IV antibiotics through infusion center for a total of 8 weeks of therapy.
[2018-02-06 15:45] LABS: ANION GAP 13 (5-19); BLOOD UREA NITROGEN 22 mg/dL (7-20); C-REACTIVE PROTEIN 52.8 mg/L (<10.0); CALCIUM 9.1 mg/dL (8.4-10.2); CARBON DIOXIDE 26 mmol/L (22-30); CHLORIDE 102 mmol/L (98-107); GLUCOSE 62 mg/dL (75-110); POTASSIUM 5.5 mmol/L (3.6-5.0); SODIUM 141.3 mmol/L (137-145)
--- NOTE | 2018-02-06 15:55 | Progress Note ---
Provider Note Provider Note: ID Consult Note Asked to review patient's chart by Dr Jimenez. Pt not seen or examined. Reviewed provider notes, labs, imaging reports, VS. Discussed case via telephone. Mr. Brar is a 32 year old man with history of IVDU with c/o 1 week history of right back and leg pain admitted overnight on 01/24/18. He had fever up to 102F initially and limited RLE ROM d/t pain. No murmur on exam, nor track duran. Pt denied active IVDU, although this has been contradicted by collateral information from his parents. Pt had on admission a leukocytosis with WBC count 17k. Blood cultures grew MSSA in both sets on 01/24. Imaging studies included MRI of the lumbar spine that showed R septic SI joint with adjacent bone marrow edema and enhancement worrisome for sacral osteomyelitis, 4 x 2 cm abscess deep to the iliacus muscle, and diffuse edema in the iliacus and R paraspinal muscles without other abscess. The patient was taken to the OR on 01/25/18 for resection of pelvic osteomyelitis and irrigation and debridement of the abscess with a large amount of purulent fluid encountered and cultures also growing MSSA. The patient had a TTE that was negative for evidence of IE. Repeat BCx on 01/27 showed no further growth. Pt has been receiving treatment with Rocephin 2 g IV daily. Last fever was 101 F on 02/03. WBC count has normalized compared to admission most recently WBC 5.4k. ESR was 105 on admission, >120 on repeat on 02/03. CRP was initially 204, up to 243 on 01/26 post-surgery, and down to 61 on 02/03. Further imaging studies to evaluate for any occult source of fever and persistent RLE pain have included plain films of femur, tib/fib, and R foot on that did not show any radiographic evidence of acute injury. CXR on 02/04 2 views that did not show any acute change. CT abdomen/pelvis with oral and IV contrast on 02/02 that showed no acute intraabdominal finding and only soft tissue density adjacent to R sacrum and iliac wing without discrete abscess. Pt had U/A without pyuria and moreover no symptoms to suggest UTI. Venous duplex ultrasound study from 02/02 showed no evidence of DVT in the RLE. Impression/Recommendations MSSA bacteremia, R SI joint septic arthritis, sacral osteomyelitis, and retroperitoneal abscess s/p I&D - No fever since 02/03, resolution in leukocytosis, improvement in CRP from 240 to around 60, repeat BCx negative from 01/27, and no other evidence of metastatic infection per history and exam and TTE - Agree with current therapy; although it is not generally a first line agent for treatment of MSSA bacteremia, IV Rocephin has been used in the treatment of MSSA osteoarticular infections, the patient's particular circumstances (IVDU, lack of insurance) necessitate the use of a once daily injectable option and preclude use of IV nafcillin as a continuous infusion or cefazolin 2g IV q8h. - Inflammatory markers ESR and CRP are nonspecific, but generally are useful adjuncts in monitoring recovery. CRP has trended down to 53 at this point. Although ESR has remained elevated, it tends to improve over a longer time course than CRP and is not always helpful. - Agree that the patient's continued RLE pain should be evaluated with repeat imaging to exclude an abscess. CT scan may be sufficient to demonstrate a fluid collection around the hip/pelvis. If there is any concern about an epidural process, then MRI would be superior. With repeat imaging, attention should be to soft tissue changes. Repeat imaging in patients with osteomyelitis may show worsening bony changes that do not correlate with clinical status or treatment success, but unresolved abscess or worsening soft-tissue inflammation may be indicative of a need for repeat operative intervention or perhaps change in therapy. In absence of such a finding, continuing current course of therapy with IV Rocephin appears to be indicated. Robles Schumacher MD [facility] Infectious Diseases pager [phone]
[2018-02-06 16:47] LABS: ERYTHROCYTE SEDIMENTATION RATE 120 mm/hr (0-15)
--- NOTE | 2018-02-06 18:07 | RADIOLOGY REPORT (SQ) ---
EXAM DESCRIPTION: CT PELVIS WITH COMPLETED DATE/TIME: 02/06/2018 5:48 pm REASON FOR STUDY: pain left side COMPARISON: None. TECHNIQUE: CT scan of the pelvis performed with intravenous and oral contrast using helical scannin g technique with dynamic intravenous contrast injection. Images reviewed with lung, soft tissue, and bone windows. Reconstructed coronal and sagittal MPR images reviewed. Delayed images for evaluation o f the urinary system also acquired. All images stored on PACS. All CT scanners at this facility use dose modulation, iterative reconstruction, and/or weight based d osing when appropriate to reduce radiation dose to as low as reasonably achievable (ALARA). [facility]: Dose Right [facility]: CareDose [facility]: Dose Right [facility]: Teradose 4D [facility]: Feedlooks CONTRAST TYPE AND DOSE: contrast/concentration: Isovue 370.00 mg/ml; Total Contrast Delivered: 100.0 ml; Total Saline Delivered: 37.0 ml RENAL FUNCTION: None required. The patient is less than 50 years old. RADIATION DOSE: CT Rad equipment meets quality standard of care and radiation dose reduction techniq ues were employed. CTDIvol: 16.2 - 18.2 mGy. DLP: 1373 mGy-cm. . LIMITATIONS: None. FINDINGS: RIGHT KIDNEY AND URETER: Partially visualized. . No masses. No significant calcificati ons. No hydronephrosis or hydroureter. LEFT KIDNEY AND URETER: Partially visualized. No masses. No significant calcifications. No hydro nephrosis or hydroureter. AORTA AND VESSELS: No aneurysm. No dissection. Renal arteries, SMA, celiac without stenosis. RETROPERITONEUM: No retroperitoneal adenopathy, hemorrhage or masses. BOWEL AND PERITONEAL CAVITY: No obstruction. No visualized masses. No free fluid. No inflammatory ch anges or thickening of bowel wall. APPENDIX: Normal. PELVIS: No significant masses. Normal bladder. No free fluid. ABDOMINAL WALL: No masses. No hernias. BONES: Osteomyelitis right iliac wing. Cystic change in the inferior left ilium which is stable sinc e 2017. No cortical disruption. Of unlikely clinical significance. New area of cortical disruption lateral acetabulum on the left. This may be related to chronic labral and cartilage disease, but henson s progressed since 2017. OTHER: No other significant finding. IMPRESSION: Changes in the right iliac wing are stable. Cystic change inferior left ilium without c ortical destruction stable since 2017. There is an new area of cortical destruction in the left lateral acetabulum along the labrum. This h as progressed since 2017. More likely related to chronic labral and cartilage disease, but with this patient's history osteomyelitis is in the differential. No soft tissue abnormality. TECHNICAL DOCUMENTATION: JOB ID: [id number] Quality ID # [id number]: Final reports with documentation of one or more dose reduction techniques (e.g., Au tomated exposure control, adjustment of the mA and/or kV according to patient size, use of iterative reconstruction technique) 2010 [employer]- All Rights Reserved Reading location - IP/workstation name: [email or web address]
[2018-02-06] MEDS: DIPHENHYDRAMINE HCL 25 MG CAPSULE PO SCH (21:42)
[2018-02-06] MEDS: NICOTINE 14 MG/24 HR PATCH.TD24 TD SCH (21:42)
[2018-02-07] MEDS: HYDROMORPHONE HCL 2 MG TABLET PO SCH ×3 (03:05→14:33)
[2018-02-07 05:07] LABS: ABSOLUTE BASOPHILS # (AUTO) 0.1 10^3/uL (0.0-0.2); ABSOLUTE EOSINOPHILS # (AUTO) 0.2 10^3/uL (0.0-0.6); ABSOLUTE LYMPHOCYTES (AUTO) 1.3 10^3/uL (0.5-4.7); ABSOLUTE MONOCYTES (AUTO) 0.6 10^3/uL (0.1-1.4); ABSOLUTE NEUT (AUTO) 2.7 10^3/uL (1.7-8.2); BASOPHILS % (AUTO) 1.4 % (0-2); EOSINOPHILS % (AUTO) 3.7 % (0-6); HEMATOCRIT 27.3 % (37.9-51.0); HEMOGLOBIN 9.5 g/dL (13.5-17.0); LYMPHOCYTES % (AUTO) 26.8 % (13-45); MEAN CORPUSCULAR HEMOGLOBIN 28.5 pg (27.0-33.4); MEAN CORPUSCULAR HGB CONC 34.9 g/dL (32.0-36.0); MEAN CORPUSCULAR VOLUME 82 fl (80-97); MONOCYTES % (AUTO) 11.6 % (3-13); PLATELET COUNT 656 10^3/uL (150-450); RED BLOOD COUNT 3.35 10^6/uL (4.35-5.55); RED CELL DISTRIBUTION WIDTH 13.4 % (11.5-14.0); SEGMENTED NEUTROPHILS % (AUTO) 56.5 % (42-78); TOTAL CELLS COUNTED % (AUTO) 100 %; WHITE BLOOD COUNT 4.8 10^3/uL (4.0-10.5)
[2018-02-07 05:15] LABS: ANION GAP 14 (5-19); BLOOD UREA NITROGEN 22 mg/dL (7-20); CALCIUM 9.6 mg/dL (8.4-10.2); CARBON DIOXIDE 25 mmol/L (22-30); CHLORIDE 104 mmol/L (98-107); GLUCOSE 102 mg/dL (75-110); POTASSIUM 5.2 mmol/L (3.6-5.0)
[2018-02-07] MEDS: HEPARIN SOD (PORCINE) 5,000 UNIT/ML 1 ML SYRINGE SUBCUT SCH ×2 (05:32→13:58)
[2018-02-07] MEDS: PREGABALIN 75 MG CAPSULE PO SCH ×2 (05:32→13:58)
[2018-02-07] MEDS: OXYCODONE HCL IR 5 MG TABLET PO PRN ×3 (06:04→15:39)
[2018-02-07] MEDS: LANSOPRAZOLE 30 MG TAB.RAP.DR PO SCH (06:04)
[2018-02-07] MEDS: IBUPROFEN 800 MG TABLET PO SCH ×2 (06:04→13:59)
[2018-02-07] MEDS: DIAZEPAM 5 MG TABLET PO SCH ×2 (06:04→13:58)
--- NOTE | 2018-02-07 06:53 | PDOC PROGRESS REPORT ---
Subjective Progress Note for:: 02/07/18 Reason For Visit: SACROILIAC JOINT SEPTIC ARTHRITIS,OSTEOMYELITIS OF Patient reports that his left hip pain may be somewhat better this morning. Physical Exam Vital Signs: Temp Pulse Resp BP Pulse Ox 36.8 C 80 12 123/53 L 100 02/07/18 03:35 02/07/18 03:35 02/07/18 03:35 02/07/18 03:35 02/07/18 03:35 Intake & Output 02/05/18 02/06/18 02/07/18 06:59 06:59 06:59 Intake Total 5982 4220 978 Output Total 4975 5945 2800 Balance 1007 445 -8792 Weight 106.9 kg 104.1 kg General appearance: PRESENT: mild distress Head exam: PRESENT: normocephalic Respiratory exam: PRESENT: unlabored Cardiovascular exam: PRESENT: RRR Pulses: PRESENT: +1 pedal pulses bilateral Vascular exam: PRESENT: normal capillary refill GI/Abdominal exam: PRESENT: soft Rectal exam: PRESENT: deferred Extremities exam: PRESENT: other - Passive range of motion of the left hip is still painful but not excruciating as it was yesterday. Neurological exam: PRESENT: alert, awake, oriented to person, oriented to place , oriented to time, oriented to situation. ABSENT: motor sensory deficit Psychiatric exam: PRESENT: appropriate affect, normal mood. ABSENT: homicidal ideation, suicidal ideation Skin exam: PRESENT: dry, intact, warm. ABSENT: cyanosis, rash Results Laboratory Results: 02/07/18 04:33 02/07/18 04:33 02/06/18 02/06/18 02/07/18 14:52 14:52 04:33 WBC 6.1 4.8 RBC 3.44 L 3.35 L Hgb 9.7 L 9.5 L Hct 28.2 L 27.3 L MCV 82 82 MCH 28.3 28.5 MCHC 34.5 34.9 RDW 13.5 13.4 Plt Count 812 H 656 H Seg Neutrophils % 62.9 56.5 Lymphocytes % 24.6 26.8 Monocytes % 6.8 11.6 Eosinophils % 3.5 3.7 Basophils % 2.2 H 1.4 Absolute Neutrophils 3.9 2.7 Absolute Lymphocytes 1.5 1.3 Absolute Monocytes 0.4 0.6 Absolute Eosinophils 0.2 0.2 Absolute Basophils 0.1 0.1 Sodium 141.3 Potassium 5.5 H Chloride 102 Carbon Dioxide 26 Anion Gap 13 BUN 22 H Creatinine 0.84 Est GFR ( Amer) > 60 Est GFR (Non-Af Amer) > 60 Glucose 62 L Calcium 9.1 C-Reactive Protein 52.8 H 02/07/18 04:33 WBC RBC Hgb Hct MCV MCH MCHC RDW Plt Count Seg Neutrophils % Lymphocytes % Monocytes % Eosinophils % Basophils % Absolute Neutrophils Absolute Lymphocytes Absolute Monocytes Absolute Eosinophils Absolute Basophils Sodium 143.0 Potassium 5.2 H Chloride 104 Carbon Dioxide 25 Anion Gap 14 BUN 22 H Creatinine 0.83 Est GFR ( Amer) > 60 Est GFR (Non-Af Amer) > 60 Glucose 102 Calcium 9.6 C-Reactive Protein Impressions: Lumbar Spine MRI 01/24/18 10:48 IMPRESSION: Septic right SI joint with adjacent marrow edema and contrast enhancement 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 4 x 2 cm abscess protruding off the ventral aspect right SI joint deep to the iliacus muscle in the pelvis. Diffuse edema in the iliacus and right paraspinal muscles without other abscess identified at this time. Signal abnormalities worrisome for early septic arthritis in the left SI joint without abscess. No epidural abscess. Findings discussed with the emergency room attending physician. Guidance Fluoroscopy 01/27/18 00:00 IMPRESSION: SUCCESSFUL PLACEMENT OF A 5 FR DUAL LUMEN 38 CM PICC IN THE LEFT BASILIC VEIN. Interventional Vascular Procedure 01/27/18 00:00 IMPRESSION: SUCCESSFUL PLACEMENT OF A 5 FR DUAL LUMEN 38 CM PICC IN THE LEFT BASILIC VEIN. PICC Line Insertion 01/27/18 00:00 IMPRESSION: SUCCESSFUL PLACEMENT OF A 5 FR DUAL LUMEN 38 CM PICC IN THE LEFT BASILIC VEIN. Abdomen/Pelvis CT 02/02/18 00:00 IMPRESSION: Presumed osteomyelitis of the right iliac wing. Adjacent soft tissue density but without a discrete abscess. No intraabdominal finding. Femur X-Ray 02/03/18 00:00 IMPRESSION: NEGATIVE STUDY OF THE RIGHT FEMUR. NO RADIOGRAPHIC EVIDENCE OF ACUTE INJURY. Foot X-Ray 02/03/18 00:00 IMPRESSION: NEGATIVE STUDY OF THE RIGHT FOOT. NO RADIOGRAPHIC EVIDENCE OF ACUTE INJURY. Tibia/Fibula X-Ray 02/03/18 00:00 IMPRESSION: NEGATIVE STUDY OF THE RIGHT TIBIA AND FIBULA. NO RADIOGRAPHIC EVIDENCE OF ACUTE INJURY. Chest X-Ray 02/04/18 00:00 IMPRESSION: NO ACUTE RADIOGRAPHIC FINDING IN THE CHEST. Pelvis CT 02/06/18 00:00 IMPRESSION: Changes in the right iliac wing are stable. Cystic change inferior left ilium without cortical destruction stable since 2017. There is an new area of cortical destruction in the left lateral acetabulum along the labrum. This has progressed since 2017. More likely related to chronic labral and cartilage disease, but with this patient's history osteomyelitis is in the differential. No soft tissue abnormality. Assessment & Plan - Diagnosis (1) Right and left IS joint septic arthritis Is this a current diagnosis for this admission?: Yes Plan: CT scan yesterday demonstrated no new pathology what it was interpreted as a stable presentation. My interpretation is that there is no evidence of an abscess at this point. Patient's C-reactive protein has been trending down and his sedimentation rate remains elevated at 120. He has been afebrile for several days. In light of the above my recommendation is that we continue with antibiotic administration and observation. Patient can be mobilized with physical therapy and weightbearing as tolerated basis. Pain management continues to be problematic. (2) Left hip pain Is this a current diagnosis for this admission?: Yes Plan: CT scan yesterday suggests potential intra-articular degenerative pathology - Time Time Spent with patient: 15-24 minutes Anticipated discharge: Other Within: Other
[2018-02-07] MEDS: DOCUSATE SODIUM 100 MG CAPSULE PO SCH (09:05)
[2018-02-07] MEDS: CEFTRIAXONE 2 GM/D5W RTU 2 GM/50 ML RTUPB IV SCH (11:03)
[2018-02-07] MEDS ORDERED: NICOTINE 14 MG/24 HR PATCH.TD24 TD ONE (14:15)
--- NOTE | 2018-02-07 15:28 | PDOC DISCHARGE SUMMARY ---
General - Admit/Disc Date/PCP Admission Date/Primary Care Provider: 01/24/18 18:31 Discharge Date: 02/07/18 - Discharge Diagnosis (1) I iliac muscle abscess Is this a current diagnosis for this admission?: Yes (2) Leukocytosis Is this a current diagnosis for this admission?: Yes (3) Right and left IS joint septic arthritis Is this a current diagnosis for this admission?: Yes (4) Sacral bone osteomyelitis Is this a current diagnosis for this admission?: Yes (5) Sepsis Is this a current diagnosis for this admission?: Yes (6) DVT (deep venous thrombosis) Is this a current diagnosis for this admission?: No (7) Fever Is this a current diagnosis for this admission?: Yes - Additional Information Resuscitation Status: Full Code Discharge Diet: Regular Discharge Activity: Activity As Tolerated, No Driving Prescriptions: Ceftriaxone 2 gm/D5w RTU [Rocephin RTU 2 gm/D5w 50 ml Premix Bag] 2 gm IV DAILY 45 Days #45 dose Diazepam [Valium 5 mg Tablet] 10 mg PO Q8 #30 tablet Docusate Sodium [Colace 100 mg Capsule] 100 mg PO BID #20 capsule Hydromorphone HCl [Dilaudid 2 mg Tablet] 4 mg PO Q6A #30 tablet Ibuprofen [Motrin 800 mg Tablet] 800 mg PO Q8 30 Days tablet Lansoprazole [Prevacid 30 mg Odt Tablet] 30 mg PO Q6AM #30 tab.rap Nicotine [Nicoderm 14 mg/24 Hr Transdermal Patch] 1 each TD QHS #30 patch.td24 Oxycodone HCl [Oxy-Ir 5 mg Tablet] 10 mg PO Q4HP PRN #30 tablet PRN Reason: Pregabalin [Lyrica 75 mg Capsule] 150 mg PO Q8 #30 capsule Home Medications: Ceftriaxone 2 gm/D5w RTU [Rocephin RTU 2 gm/D5w 50 ml Premix Bag] 2 gm IV DAILY 45 Days #45 dose 02/06/18 Diazepam [Valium 5 mg Tablet] 10 mg PO Q8 #30 tablet 02/07/18 Docusate Sodium [Colace 100 mg Capsule] 100 mg PO BID #20 capsule 02/07/18 Hydromorphone HCl [Dilaudid 2 mg Tablet] 4 mg PO Q6A #30 tablet 02/07/18 Ibuprofen [Motrin 800 mg Tablet] 800 mg PO Q8 30 Days tablet 02/07/18 Lansoprazole [Prevacid 30 mg Odt Tablet] 30 mg PO Q6AM #30 tab.gerson. 02/07/18 Nicotine [Nicoderm 14 mg/24 Hr Transdermal Patch] 1 each TD QHS #30 patch.td24 02/07/18 Oxycodone HCl [Oxy-Ir 5 mg Tablet] 10 mg PO Q4HP PRN #30 tablet 02/07/18 Pregabalin [Lyrica 75 mg Capsule] 150 mg PO Q8 #30 capsule 02/07/18 History of Present Illness History of Present Illness: JOEL BENAVIDES is a 32 year old male Hospital Course Hospital Course: The patient is a 32 yr old man who was admitted to a medical bed on 01/24/2018 with complaints of thigh pain for which he had had a previous visit to the ED. He had an MRI which demonstrated a septic right sacroiliac joint with adjacent marrow edema and contrast enhancement of the right sacral and innominate bone indicating osteomyelitis. He was placed on cefepime and vancomycin initially. He underwent I & D and bone biopsy on 01/25/2018 with orthopedic surgery. An echocardiogram was performed on 01/27/2018 which was negative for valvular vegetations. He had a PICC placed on 01/27/2018. The patient's bone culture grew out MSSA. Blood cultures (08/26) also grew out MSSA. His antibiotics were changed to Rocephin 2gm IV daily. He would require 8 weeks of this IV therapy. However on 01/29/2018 the patient's father contacted nursing and disclosed that although the patient has continually asserted that he has not used IV drugs "for several years" the family had recently found needles and drug paraphernalia in the patient's bedroom and were suspicious that he was still using. In lieu of this information I had nursing attempt IV insertion. They found that indeed they were able to site an IV. The nurse that sited the IV also stated that she felt that there would not be a problem with the patient having IV's sited daily to receive his 8 weeks of IV antibiotics. The PICC was removed on 02/02/2018 for patient safety reasons. Despite a decrease in the patient's white count and markers of inflammation, he continued to have daily fevers and pain that he felt was out of control. He also complained of pain in his right calf. I ordered a doppler of this right lower extremity that was negative for DVT. On a family meeting was held to discuss the patient and family's complaints and frustrations which included the patient's ongoing fevers, pain, and plan for outpatient antibiotics at infusion center via IV's. This meeting was attended by the patient, his mother and father, his sister who identified her self as a nurse, and Chloe from high school social studies tutor. During this meeting a plan was devised to address their concerns and prepare the patient for discharge.A repeat CT of his abdomen and pelvis did not show any new source of infection. I also discussed the patient with Dr. Schumacher of infectious disease at [facility]. She was quite comfortable that no further work up was necessary and that the antibiotic therapy was adequate to treat the infection. The patient continued to have complaints of pain. Both orthopedic surgery and pain control were reconsulted. Orthopedic surgery repeated a CT of the patient's pelvis as he had developed new complaints of left sided hip pain. This study was negative for new source of infection. The patient's pain medications were again adjusted. Orthopedic surgery feels that the patient's ongoing pain is due to neuropathic pain due to the location of the abscess. Today the patient has follow up appointments scheduled for a new primary care physician, Dr. Weaver with orthopedic surgery, and pain control. Furthermore his outpatient IV antibiotics have been set up through the infusion center. He has also been set up to follow up with wound care and physical therapy as outpatient. DME has been arranged and has been picked up by the patient's father. The patient's WBC is normal. He has had no fevers now for 4 days. He did have increased pain yesterday following working with PT for the first time, but I feel that that is to be expected. His jason were removed as per orthopedic surgery. He is discharged to home in fair condition. Physical Exam Vital Signs: Temp Pulse Resp BP Pulse Ox 98.6 F 95 18 123/63 96 02/07/18 11:30 02/07/18 11:30 02/07/18 11:30 02/07/18 11:30 02/07/18 11:30 Intake & Output 02/06/18 02/07/18 02/08/18 06:59 06:59 06:59 Intake Total 4220 978 046 Output Total 3216 6005 468 Balance 245 -0009 -737 Weight 104.1 kg 101.9 kg General appearance: PRESENT: no acute distress Respiratory exam: PRESENT: other - No increased work of breathing. No rubs.. ABSENT: rales, rhonchi, wheezes Cardiovascular exam: PRESENT: RRR, other - No increased work of breathing.. ABSENT: gallop, rubs, systolic murmur Pulses: PRESENT: normal femoral pulses, normal dorsalis pedis pul GI/Abdominal exam: PRESENT: normal bowel sounds, soft. ABSENT: hernia, mass, organolmegaly Extremities exam: ABSENT: +1 edema Neurological exam: PRESENT: alert, awake, oriented to person, oriented to place , oriented to time, oriented to situation, CN II-XII grossly intact. ABSENT: motor sensory deficit Psychiatric exam: PRESENT: appropriate affect, normal mood Skin exam: PRESENT: dry, intact, warm Results Laboratory Results: 02/07/18 04:33 02/07/18 04:33 02/06/18 02/06/18 02/07/18 14:52 14:52 04:33 WBC 6.1 4.8 RBC 3.44 L 3.35 L Hgb 9.7 L 9.5 L Hct 28.2 L 27.3 L MCV 82 82 MCH 28.3 28.5 MCHC 34.5 34.9 RDW 13.5 13.4 Plt Count 812 H 656 H Seg Neutrophils % 62.9 56.5 Lymphocytes % 24.6 26.8 Monocytes % 6.8 11.6 Eosinophils % 3.5 3.7 Basophils % 2.2 H 1.4 Absolute Neutrophils 3.9 2.7 Absolute Lymphocytes 1.5 1.3 Absolute Monocytes 0.4 0.6 Absolute Eosinophils 0.2 0.2 Absolute Basophils 0.1 0.1 Sodium 141.3 Potassium 5.5 H Chloride 102 Carbon Dioxide 26 Anion Gap 13 BUN 22 H Creatinine 0.84 Est GFR ( Amer) > 60 Est GFR (Non-Af Amer) > 60 Glucose 62 L Calcium 9.1 C-Reactive Protein 52.8 H 02/07/18 04:33 WBC RBC Hgb Hct MCV MCH MCHC RDW Plt Count Seg Neutrophils % Lymphocytes % Monocytes % Eosinophils % Basophils % Absolute Neutrophils Absolute Lymphocytes Absolute Monocytes Absolute Eosinophils Absolute Basophils Sodium 143.0 Potassium 5.2 H Chloride 104 Carbon Dioxide 25 Anion Gap 14 BUN 22 H Creatinine 0.83 Est GFR ( Amer) > 60 Est GFR (Non-Af Amer) > 60 Glucose 102 Calcium 9.6 C-Reactive Protein 01/25/18 09:00 Gram Stain - Final Hip - Right Body Fluid Culture - Final Staphylococcus Aureus No Anaerobic Organisms 01/24/18 13:37 Blood Culture - Final Blood Staphylococcus Aureus 01/24/18 12:25 Blood Culture - Final Blood Staphylococcus Aureus Impressions: Lumbar Spine MRI 01/24/18 10:48 IMPRESSION: Septic right SI joint with adjacent marrow edema and contrast enhancement 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 4 x 2 cm abscess protruding off the ventral aspect right SI joint deep to the iliacus muscle in the pelvis. Diffuse edema in the iliacus and right paraspinal muscles without other abscess identified at this time. Signal abnormalities worrisome for early septic arthritis in the left SI joint without abscess. No epidural abscess. Findings discussed with the emergency room attending physician. Guidance Fluoroscopy 01/27/18 00:00 IMPRESSION: SUCCESSFUL PLACEMENT OF A 5 FR DUAL LUMEN 38 CM PICC IN THE LEFT BASILIC VEIN. Interventional Vascular Procedure 01/27/18 00:00 IMPRESSION: SUCCESSFUL PLACEMENT OF A 5 FR DUAL LUMEN 38 CM PICC IN THE LEFT BASILIC VEIN. PICC Line Insertion 01/27/18 00:00 IMPRESSION: SUCCESSFUL PLACEMENT OF A 5 FR DUAL LUMEN 38 CM PICC IN THE LEFT BASILIC VEIN. Abdomen/Pelvis CT 02/02/18 00:00 IMPRESSION: Presumed osteomyelitis of the right iliac wing. Adjacent soft tissue density but without a discrete abscess. No intraabdominal finding. Femur X-Ray 02/03/18 00:00 IMPRESSION: NEGATIVE STUDY OF THE RIGHT FEMUR. NO RADIOGRAPHIC EVIDENCE OF ACUTE INJURY. Foot X-Ray 02/03/18 00:00 IMPRESSION: NEGATIVE STUDY OF THE RIGHT FOOT. NO RADIOGRAPHIC EVIDENCE OF ACUTE INJURY. Tibia/Fibula X-Ray 02/03/18 00:00 IMPRESSION: NEGATIVE STUDY OF THE RIGHT TIBIA AND FIBULA. NO RADIOGRAPHIC EVIDENCE OF ACUTE INJURY. Chest X-Ray 02/04/18 00:00 IMPRESSION: NO ACUTE RADIOGRAPHIC FINDING IN THE CHEST. Pelvis CT 02/06/18 00:00 IMPRESSION: Changes in the right iliac wing are stable. Cystic change inferior left ilium without cortical destruction stable since 2017. There is an new area of cortical destruction in the left lateral acetabulum along the labrum. This has progressed since 2017. More likely related to chronic labral and cartilage disease, but with this patient's history osteomyelitis is in the differential. No soft tissue abnormality. Qualifiers - * PATIENT BEING DISCHARGED WITH ANY OF THE FOLLOWING DIAGNOSIS: No Plan Discharge Plan: Discharge to home with IV antibiotics to be administered by the infusion center. Time Spent: Greater than 30 Minutes
[2018-02-07 15:59] VITALS: BP 137/72
== END 2018-02-07 17:21 | disposition home or self-care (01) | DRG 853 ==
LOC: ER 10:23 → EH 18:31 → 3W 20:51
PROVIDERS: ADMIT Internal Medicine; ATTEND Internal Medicine
PROC: 0QB20ZZ Excision of Right Pelvic Bone, Open Approach (ICD-10-PCS; principal; 2018-01-25 08:00)
PROC: 02HV33Z Insertion of Infusion Device into Superior Vena Cava, Percutaneous Approach (ICD-10-PCS; 2018-01-27)
PROC: B548ZZA Ultrasonography of Superior Vena Cava, Guidance (ICD-10-PCS; 2018-01-27)
PROC: B518ZZA Fluoroscopy of Superior Vena Cava, Guidance (ICD-10-PCS; 2018-01-27)
DX: A41.01 Sepsis due to Methicillin susceptible Staphylococcus aureus (principal); K68.12 Psoas muscle abscess; M46.28 Osteomyelitis of vertebra, sacral and sacrococcygeal region; I82.4Z1 Acute embolism and thrombosis of unspecified deep veins of right distal lower extremity; B19.20 Unspecified viral hepatitis C without hepatic coma; F17.210 Nicotine dependence, cigarettes, uncomplicated; D72.823 Leukemoid reaction; Z79.899 Other long term (current) drug therapy; Z82.49 Family history of ischemic heart disease and other diseases of the circulatory system
CPT/HCPCS: 01170; 36415; 36569; 71045; 71046; 72158; 72193; 74177; 76937; 77001; 80048; 80053; 80074; 80202; 80307; 81001; 82272; 83605; 83735; 85025; 85610; 85652; 85730; 86140; 86850; 86900; 86901; 87040; 87070; 87075; 87077; 87186; 87205; 88305; 88311; 93306; 93971; 94799; 96374; 96375; 96376; 99285; A9270-GY; J0131; J0330; J0692; J0696; J1170; J1200; J1642; J1644; J1885; J2250; J2270; J2704; J3010; J3370; J3490; J7030; J7060; J7120

== ENCOUNTER → 2018-03-23 | Outpatient (CLI) | payer OTHER, MEDICAID ==
[2018-03-23 12:49] LABS: ABSOLUTE BASOPHILS # (AUTO) 0.1 10^3/uL (0.0-0.2); ABSOLUTE EOSINOPHILS # (AUTO) 0.1 10^3/uL (0.0-0.6); ABSOLUTE LYMPHOCYTES (AUTO) 0.9 10^3/uL (0.5-4.7); ABSOLUTE MONOCYTES (AUTO) 0.3 10^3/uL (0.1-1.4); ABSOLUTE NEUT (AUTO) 3.1 10^3/uL (1.7-8.2); BASOPHILS % (AUTO) 1.3 % (0-2); EOSINOPHILS % (AUTO) 2.9 % (0-6); HEMOGLOBIN 13.5 g/dL (13.5-17.0); LYMPHOCYTES % (AUTO) 20.1 % (13-45); MEAN CORPUSCULAR HEMOGLOBIN 26.2 pg (27.0-33.4); MEAN CORPUSCULAR VOLUME 79 fl (80-97); PLATELET COUNT 332 10^3/uL (150-450); RED BLOOD COUNT 5.17 10^6/uL (4.35-5.55); RED CELL DISTRIBUTION WIDTH 14.1 % (11.5-14.0); SEGMENTED NEUTROPHILS % (AUTO) 68.7 % (42-78); TOTAL CELLS COUNTED % (AUTO) 100 %; WHITE BLOOD COUNT 4.5 10^3/uL (4.0-10.5)
[2018-03-23 13:14] LABS: ANION GAP 14 (5-19); BLOOD UREA NITROGEN 16 mg/dL (7-20); C-REACTIVE PROTEIN 13.2 mg/L (<10.0); CALCIUM 9.9 mg/dL (8.4-10.2); CARBON DIOXIDE 25 mmol/L (22-30); CHLORIDE 106 mmol/L (98-107); GLUCOSE 87 mg/dL (75-110); POTASSIUM 4.6 mmol/L (3.6-5.0); SODIUM 144.6 mmol/L (137-145)
[2018-03-23 13:37] LABS: ERYTHROCYTE SEDIMENTATION RATE 35 mm/hr (0-15)
== END ==
LOC: OD 11:27
PROVIDERS: ATTEND Orthopaedic Surgery
DX: T81.4XXD Infection following a procedure, subsequent encounter (principal); X58.XXXD Exposure to other specified factors, subsequent encounter
CPT/HCPCS: 36415; 80048; 85025; 85652; 86140